=== PATIENT | male | born 1945 | race Caucasian/White ===

== ENCOUNTER → 2020-11-26 10:33 | Outpatient (CLI) | payer MEDICARE, SELFPAY ==
--- NOTE | 2020-11-26 10:36 | ART_ITS ---
Reason For Study: atherosclerosis Procedure A bilateral lower extremity continuous wave Doppler with analog waveform analysis and ankle brachial indexes. Left Segmental Pressures Left brachial= 137mmHg. Left posterior tibial artery = 91mmHg. Left dorsalis pedis artery = 94mmHg. The left dorsalis pedis waveforms are monophasic. The left posterior tibial artery waveforms are monophasic. Right Segmental Pressures Right brachial= 127mmHg. Right posterior tibial artery = 88mmHg. Right dorsalis pedis artery = 95mmHg. The right dorsalis pedis waveforms are monophasic. The right posterior tibial artery waveforms are monophasic. Indices The right ankle brachial index by the posterior tibial artery is .64. The right ankle brachial index by the dorsalis pedis is .69. The left ankle brachial index by the posterior tibial artery is .66. The left ankle brachial index by the dorsalis pedis is .69. VL/Ankle Brachial Index Interpretation Summary Bilateral moderate occlusive disease at rest with an DAVID 0.69 bilaterally. Obion phasic flow noted. Ordering Physician: Abdelrahman Alcaraz Performed By: MASSIEL ELLIS T
--- NOTE | 2020-11-26 11:02 | CT_ITS ---
STUDY: CTA OF THE ABDOMINAL AORTA AND BILATERAL LOWER EXTREMITIES REASON FOR EXAM: Male, 75 years old. Bilateral hip pain and lower extremity pain. History of smoker. RADIATION DOSAGE (If Supplied By Facility): CTDIvol = ( 9.28 ) mGy, DLP = ( 1315.47 ) mGycm TECHNIQUE: Axial CT angiography multi-detector data acquisition was obtained from the dome of the liver to the level of the ankles following intravenous administration of IV 100mL [id number]. Axial images and MIP images were reconstructed from the axial data set. Post-processing of the angiographic images was performed, with multiplanar reformation and 3D reconstruction. Individualized dose optimization techniques were used for this CT. TECHNICAL QUALITY: Good COMPARISON: None. Descriptors of Narrowing: None (0%) Mild (< 50%) Moderate (50-70%) Severe (70-90%) Subtotal/Total Occlusion (90-100%) Non-Evaluable (technically non-diagnostic FINDINGS: Coronary artery calcification. Diffuse fatty infiltration of the liver. Abdominal aorta: Diffuse atherosclerotic plaque formation. There is evidence of aneurysmal dilatation of the distal abdominal aorta with a transverse dimension of 42.7 mm. There is evidence of mural thrombus. Celiac and superior mesenteric arteries: Atherosclerotic plaque formation at the origin of the celiac artery and superior mesenteric artery with mild narrowing. Inferior mesenteric artery: Not visualized. Right renal artery(arteries): Mildly stenotic atherosclerotic plaque at the origin of the right renal artery. Left renal artery(arteries): Nonstenotic calcific plaque at the origin of the left renal artery. Right common iliac artery: Atherosclerotic plaque formation. 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 The aneurysm measures 2.4 cm. Right external iliac artery: Nonobstructive calcific plaques. Right internal iliac artery: No demonstrated narrowing. Left common iliac artery: Aneurysmal dilatation of the left common iliac artery with a transverse dimension of 2.1 cm. There is evidence of mural thrombus. Left external iliac artery: Nonobstructive calcific plaques. Left internal iliac artery: No demonstrated narrowing. RIGHT LOWER EXTREMITY Right common femoral artery: No demonstrated narrowing. Right profundus femoris: No demonstrated narrowing. Right superficial femoral: Multiple stenotic calcific plaques throughout the course of the superficial femoral artery. Right popliteal artery: Nonstenotic calcific plaques at the level of the popliteal artery. Right tibioperoneal trunk: No demonstrated narrowing. Right anterior tibial artery: No demonstrated narrowing. Right posterior tibial artery: The artery is patent although it is of narrow caliber. Right peroneal artery: No demonstrated narrowing. LEFT LOWER EXTREMITY Left common femoral artery: No demonstrated narrowing. Left profundus femoris: No demonstrated narrowing. Left superficial femoral: Multiple stenotic calcific plaques throughout its course. Left popliteal artery: Nonobstructive calcific plaques. Left tibioperoneal trunk: No demonstrated narrowing. Left anterior tibial artery: Multiple stenotic plaque seen throughout its course. Left posterior tibial artery: No demonstrated narrowing. Left peroneal artery: No demonstrated narrowing. 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 Narrow caliber of the right posterior tibial artery. Multiple stenotic plaque seen throughout the course of the left anterior tibial artery. 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 Mural thrombus is seen within. Electronically Signed: Richard Orellana MD at 12:52 EDT , Service support ,
[2020-11-26 14:05] LABS: CREATININE FINGERSTICK 1.1 mg/dL (0.70-1.30); EGFR FINGERSTICK > 60.0000 mL/min (>60)
== END ==
PROVIDERS: PCP Physician Assistant; Referring Provider Surgery Vascular Surgery; Visit Provider Surgery Vascular Surgery
DX: I70.213 Atherosclerosis of native arteries of extremities with intermittent claudication, bilateral legs (principal); I77.1 Stricture of artery; E78.00 Pure hypercholesterolemia, unspecified; I10 Essential (primary) hypertension; I71.4 Abdominal aortic aneurysm, without rupture; F17.200 Nicotine dependence, unspecified, uncomplicated; E11.9 Type 2 diabetes mellitus without complications
CPT/HCPCS: 75635; 93922; Q9967

== ENCOUNTER → 2025-05-22 | Outpatient (CLI) | payer MEDICARE, SELFPAY ==
--- OUTSIDE RECORDS SUMMARY | 2025-05-22 19:11 | XMS RPT_ITS | CCD ---
Author Organization [facility] Care Team Providers Care Automobile Inspector Name Role Phone ENA LOERA Primary Care Physician ENA LOERA Primary Care Unavailable GRETA ALCARAZ MD Attending Unavailable MICHELLE DAILEY ENA Primary Care Unavailable PADDY MENDOZA Attending U GRETA Sierra MD Consulting Unavailable GRETA ALCARAZ MD Admitting Unavailable MICHELLE DAILEY ENA Primary Care Unavailable GRETA ALCARAZ MD Attending Unavailable SORIANO PA, ENA Primary Care Unavailable GRETA ALCARAZ MD Attending Unavailable SORIANO PA, ENA Primary Care Unavailable MARY MARINO Attending Unavailable Soriano PA-C, Ena J Unavailable Soriano PA-C, Ena J Unavailable General Surgery Provider Unavailable Unavail able Orthopedic Provider Unavailable Unavailable Urologist Provider Unavailable Unavailable Vascular Surgeon Unavailable Unavailable Rebecca Maynard RN Unavailable Unavailva Rivas RN, Micaela Unavailable [phone] Mutnick MACKENZIEN, Nithya K Unavailable UnaRafia Lincoln Unavailable Unavailable Sonali TAN, Adilia Unavailable Unavailab Perlita Campbell LPN Unavailable Unavailabl e Unavailable Unavailable Cesario CELIS, Dr. Micah Sanchez Unavailable Rin Garcia LPN Unavailable Unavailabl e EDWARD RIVAS Admitting Unavailable EDWARD RIVAS Attending Unavailable EDWARD RIVAS Primary Care Unavailable ENA SORIANO Consulting Unavailable PROVIDER, UNKNOWN Consulting Unavailable SORIANO, ENA J Admitting Unavailable SORIANO ENA J Attending Unavailable SORIANO, ENA J Primary Care Unavailable SORIANO, ENA J Consulting Unavailable PROVIDER, UNKNOWN Consulting Unavailable GARCÍA, JO Admitting Unavailable GARCÍA, JO Attending Unavailable GARCÍA, JO Primary Care Unavailable ENA SORIANO Consulting Unavailable PROVIDER, UNKNOWN Consulting Unavailable ROSELIA PACHECO Admitting Unavailable ROSELIA PACHECO Attending Unavailable ROSELIA PACHECO Primary Care Unavailable ENA SORIANO Consulting Unavailable ENA SORIANO Referring Unavailable PROVIDER, UNKNOWN Consulting Unavailable REFERRING, PHY WO ID Attending Unavailable ENA LOERA Primary Care Unavailable JO MARIANO MD Attending Unavailable ENA LOERA Primary Care Unavailable Medications Current Medications Medication Drug Class(es) Dates Sig (Normalized) Sig (Original) aspirin 81 mg delayed release oral tablet (20 sources) Platelet Aggregation Inhibitor, Nonsteroidal Anti-inflammatory Drug Start: 02-20-2021 aspirin 81 mg oral delayed release tablet Dose : 81 mg = 1 tab(s), Oral, Daily, 0 Refill(s) Start Date: 02/20/21 Status: Ordered Repeat number: 1 Aspirin EC Statu s: Inactive atorvastatin 80 mg oral tablet (20 sources) HMG-CoA Reductase Inhibitor Start: 09-04-2024 take 1 tablet by mouth once daily atorvastatin 80 mg oral tablet 1 tab(s), Oral, qDay, # 90 tab(s), 3 Refill(s), Pharmacy: [id number], 170, cm, 02/16/24 13:18:00 EDT, Height, kg, 02/16/24 13:18:00 EDT, Dosing Weight Start Date: 09/04/24 Status: Ordered Quantity: 90.0 Unit: tab(s) Repeat number: 4 Start: 08-27-2022 take 1 tablet by ila th once daily atorvastatin 80 mg oral tablet 1 tab(s), Oral, qDay, # 90 tab(s), 3 Refill(s), Pharmacy: [id number], 166, cm, 02/18/22 14:20:00 EDT, Height, kg, 02/18/22 14:20:00 EDT, Dosing Weight Start Date: 08/27/22 Status: Ordered Start: 04-25-2015 End: 04-06-2016 take 1 tablet by mouth at bedtime Atorvastatin Calcium 40 MG Oral Tablet ; 1 Tablet with evening meal or at bedtime for 0 days Quantity: 45 {Tablet} Refills: 5 Ordered: 06-Apr-2016 MARQUITA Soriano Start: 25-Apr-2015 End: 06-Apr-2016 Status: Inactive ezetimibe 10 mg oral tablet (5 sources) Dietary Cholesterol Absorption Inhibitor Start: 09-04-2024 Zetia 10 mg oral tablet Dose : 10 mg = 1 tab(s), Oral, qDay, # 90 tab(s), 3 Refill(s), Pharmacy: [id number], 170, cm, 02/16/24 13:18:00 EDT, Height, kg, 02/16/24 13:18:00 EDT, Dosing Weight Start Date: 09/04/24 Status: Ordered Quantity: 90.0 Unit: tab(s) Repeat number: 4 Start: 02-17-2023 Zetia 10 mg or al tablet Dose : 10 mg = 1 tab(s), Oral, qDay, # 90 tab(s), 2 Refill(s), Pharmacy: [facility], 165.1, cm, 02/17/23 13:21:00 EDT, Height, kg, 02/17/23 13:21:00 EDT, Dosing Weight Start Date: 02/17/23 Status: Ordered lisinopril 20 mg oral tablet (13 sources) Angiotensin Converting Enzyme Inhibitor Start: 09-04-2024 take 1 tablet by mouth once daily lisinopril 20 mg oral tablet 1 tab(s), Oral, qDay, # 90 tab(s), 3 Refill(s), Pharmacy: [id number], 170, cm, 02/16/24 13:18:00 EDT, Height, kg, 02/16/24 13:18:00 EDT, Dosing Weight Start Date: 09/04/24 Status: Ordered Quantity: 90.0 Unit: tab(s) Repeat number: 4 Start: 08-27-2022 take 1 tablet by ila th once daily lisinopril 20 mg oral tablet 1 tab(s), Oral, qDay, # 90 tab(s), 3 Refill(s), Pharmacy: [id number], 166, cm, 02/18/22 14:20:00 EDT, Height, kg, 02/18/22 14:20:00 EDT, Dosing Weight Start Date: 08/27/22 Status: Ordered Multivitamin Adult (8 sources) Multivitamin Dallin lt Multivitamin preparation (5 sources) Start: 02-20-2021 take 1 tablet by mouth once daily Multivitamin Dose = 1 tab(s), Oral, Daily, 0 Refill(s) Start Date: 02/20/21 Status: Ordered Repeat number: 1 Start: 02-20-2021 take 1 tablet by ila th once daily Multivitamin Dose = 1 tab(s), Oral, Daily, 0 Refill(s) Start Date: 02/20/21 Status: Ordered nitroglycerin 0.4 mg sublingual tablet (13 sources) Nitrate Vasodilator Start: 03-30-2016 Nitrostat 0.4 mg sublingual tablet Dose : 0.4 mg = 1 tab(s), Sublingual, q5min, PRN Chest pain, # 25 tab(s), 2 Refill(s) Start Date: 03/30/16 Status: Ordered Quantity: 25.0 Unit: tab(s) Repeat number: 3 Nitrostat ; prn Status: Inactive Completed/Discontinued Medications Medication Drug Class(es) Dates Sig (Normalized) Sig (Original) cilostazol 100 mg oral tablet (8 sources) Phosphodiesterase 3 Inhibitor Start: 03-21-2015 End: 04-06-2016 take 1 tablet by mouth twice daily Cilostazol 100 MG Oral Tablet ; 1 (one) Tablet BID for 0 days Quantity: 60 {Tablet} Refills: 5 Ordered: 06-Apr-2016 BRITNEY Lema Start: 21-Mar-2015 End: 06-Apr-2016 Status: Inactive lovastatin 20 mg oral tablet (8 sources) HMG-CoA Reductase Inhibitor take 1 tablet by mouth once daily Lovastatin 20 MG Oral Tablet ; 1 qd (20 MG) Status: Inactive methylPREDNISolone 4 mg oral tablet (8 sources) Corticosteroid Start: 02-24-2017 End: 09-08-2018 Medrol 4 MG Oral Tablet Therapy Pack ; 1 (one) Tab Ther Pack as directed for 0 days Quantity: 1 {Package} Refills: 0 Ordered: 08-Sep-2018 BRITNEY Carter Start: 24-Feb-2017 End: 08-Sep-2018 Status: Inactive Comments: review use of aspirin with this med with pt please Comment on above: review use of aspiri n with this med with pt please prasugrel 10 mg oral tablet (8 sources) P2Y12 Platelet Inhibitor take 1 tablet by mouth once daily Prasugrel HCl 10 MG Oral Tablet ; 1 daily (10 MG) Status: Inactive Problems Active Problems Problem Classification Problem Date Documented Da te Episodic/Chronic Acute myocardial infarction (5 sources) Myocardial infarction 08-03-2019 Chronic Aortic; peripheral; and visceral artery aneurysms (20 sources) Abdominal aortic aneurysm without rupture; Translations: [Abdominal aortic aneurysm, without rupture, unspecified] Chronic Conduction disorders (5 sources) Atrioventricular block 08-03-2019 Chronic Coronary atherosclerosis and other heart disease (20 sources) Coronary arteriosclerosis in [place] artery; Translations: [Coronary atherosclerosis] Onset: 6 08-03-2019 Chronic Comment on above: Percutaneous interve ntion on the 100% thrombosis in the body of the saphenous vein graft to the left circumflex. Thrombectomy. Thrombectomy. 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 Other gastrointestinal disorders (14 sources) Diarrhea; Translations: [Diarrhea, unspecified] 03-17-2024 Episodic Other screening for suspected conditions (not mental disorders or infectious disease) (20 sources) Raised prostate specific antigen; Translations: [Elevated prostate specific antigen [PSA]] 02-24-2017 Episodic Peripheral and visceral atherosclerosis (20 sources) Peripheral vascular disease; Translations: [Intermittent claudication] 08-03-2019 Chronic Residual codes; unclassified (5 sources) Tobacco user 06-03-2021 Episodic Rheumatoid arthritis and related disease (5 sources) Rheumatoid arthritis 08-03-2019 Chronic Spondylosis; intervertebral disc disorders; other back problems (16 sources) Backache; Translations: [Dorsalgia, unspecified] 02-25-2017 Episodic Substance-related disorders (20 sources) Tobacco user; Translations: [Nicotine dependence, unspecified, uncomplicated] 09-08-2018 Chronic Unclassified (2 sources) 1 1/2 PPD SMOKER SINCE 10 YEARS OLD Onset: 9 08-03-2008 Unclassified (2 sources) 1/30 CABGX4 THOMAS MECHE LSVG NO TPW RIGHT GROIN SHEATH Onset: 9 08-03-2008 Unclassified (2 sources) HX LOWER BACK SURGERY Onset: 9 08-03-2008 Unclassified (5 sources) Influenza vaccination declined Onset: 7 08-03-2019 Comment on above: verified 01/2017 Unclassified (2 sources) OSTEOARTHRITIS, ELEVATED LIPIDS Onset: 9 08-03-2008 Unclassified (5 sources) Vaccine refused by parent Onset: 7 08-03-2019 Comment on above: verified 01/2017 Unclassified (8 sources) [facility] Routine Follow up - The patient is here for follow-up of hyperlipidemia and coronary artery disease. The patient always takes the prescribed medications. No side effects noted. The patient has an active lifestyle but no regular program. The patient's out of office blood pressure checks occur rarely and dietary compliance is fairly good usually adhering to recommendations. The patient states that there is no recent angina or dyspnea, there are no vision changes or weakness, weight has increased (5 pounds) and they do not have headaches. 09-08-2018 Unclassified (8 sources) [ADDITIONAL REASON] Transition into care - The patient is transitioning into care from another physician (cardio). 09-08-2018 Unclassified (7 sources) Follow up for multiple chronic conditions - The patient is here for follow-up of hyperlipidemia, coronary artery disease and other condition(s) (AAA). The patient always takes the prescribed medications. No side effects noted. The patient has an active lifestyle but no regular exercise program. The patient's out of office blood pressure checks occur rarely and dietary compliance is fairly good usually adhering to recommendations. The patient states that breathing effort is stable, there is no recent angina or dyspnea, there are no vision changes or weakness, weight has decreased (weight is down 16 pounds since last OV) and they do not have headaches. Note for Multiple chronic conditions follow-up: Saw Dr. Robins in July - he was being noncompliant due to cost with meds so was started on lovastatin and lisinopril.Saw Dr. Alcaraz approx 1 month ago - no changes at that time per patient.Has not seen urologist. 10-05-2016 Unclassified (7 sources) [ADDITIONAL REASON] Transition into care - The patient is transitioning into care from another physician (07/2016 cardiology) and a summary of care was reviewed. 10-05-2016 Unclassified (6 sources) Follow up for multiple chronic conditions - The patient is here for follow-up of hyperlipidemia and other condition(s) (elevated PSA, AAA, hyperglycemia). The patient always takes the prescribed medications. No side effects noted. The patient has an active lifestyle but no regular exercise program. The patient's dietary compliance is fairly good usually adhering to recommendations. The patient states that breathing effort is stable, there is no recent angina or dyspnea, there are no vision changes or weakness, pain is generally stable (since he has been taking aleve for arthritis; says it helps more with low back and hip pain than the pletal) and they do not have headaches. Note for Multiple chronic conditions follow-up: 12/17 - alt, ast, lipid, psa. 09/16 - fecal and a1c. Weight is up 4 pounds since last OV. 03-21-2015 Unclassified (6 sources) [ADDITIONAL REASON] Transition into care - The patient is transitioning into care from another physician (01/2015 Urologist - Dr. Birmingham, Vascular Surgeon - Dr. Alcaraz.) and a summary of care was reviewed . Note for Transition into care: Elevated PSA is being monitored. 03-21-2015 Unclassified (8 sources) Follow Up for Multiple Chronic Conditions - The patient is here for follow-up of coronary artery disease and other condition(s) (AAA). The patient always takes the prescribed medications. No side effects noted. The patient engages in regular exercise program 3-5 times per week (walks daily). The patient states that there is no recent angina or dyspnea, weight has increased (Up 3 pounds.) and headaches are rarely noted. Note for Multiple chronic conditions follow-up: Plans to schedule eye exam with Dr. Virgen. Has been seeing Dr. Alcaraz. Intermittent claudication has improved on medication. 2014 Unclassified (8 sources) [ADDITIONAL REASON] MCR well adult - In general the patient feels well with no complaints. Over the past 2 weeks, the patient has not been feeling down, depressed, or hopeless. The patient denies having trouble with bathing, dressing/grooming, toileting, preparing meals and ambulating. The patient denies having trouble with grocery shopping, driving, use of telephone, preparing/taking medications and finances. The patient denies falling more than once in the past 12 months. 2014 Unclassified (2 sources) Transition into care - The patient is transitioning into care from another physician (01/2015 Urologist - Dr. Birmingham, Vascular Surgeon - Dr. Alcaraz.) and a summary of care was reviewed . Note for Transition into care: Elevated PSA is being monitored. 03-21-2015 Unclassified (2 sources) [ADDITIONAL REASON] Follow up for multiple chronic conditions - The patient is here for follow-up of hyperlipidemia and other condition(s) (elevated PSA, AAA, hyperglycemia). The patient always takes the prescribed medications. No side effects noted. The patient has an active lifestyle but no regular exercise program. The patient's dietary compliance is fairly good usually adhering to recommendations. The patient states that breathing effort is stable, there is no recent angina or dyspnea, there are no vision changes or weakness, pain is generally stable (since he has been taking aleve for arthritis; says it helps more with low back and hip pain than the pletal) and they do not have headaches. Note for Multiple chronic conditions follow-up: 12/17 - alt, ast, lipid, psa. 09/16 - fecal and a1c. Weight is up 4 pounds since last OV. 03-21-2015 Unclassified (1 source) Transition into care - The patient is transitioning into care from another physician (07/2016 cardiology) and a summary of care was reviewed. 10-05-2016 Unclassified (1 source) [ADDITIONAL REASON] Follow up for multiple chronic conditions - The patient is here for follow-up of hyperlipidemia, coronary artery disease and other condition(s) (AAA). The patient always takes the prescribed medications. No side effects noted. The patient has an active lifestyle but no regular exercise program. The patient's out of office blood pressure checks occur rarely and dietary compliance is fairly good usually adhering to recommendations. The patient states that breathing effort is stable, there is no recent angina or dyspnea, there are no vision changes or weakness, weight has decreased (weight is down 16 pounds since last OV) and they do not have headaches. Note for Multiple chronic conditions follow-up: Saw Dr. Robins in July - he was being noncompliant due to cost with meds so was started on lovastatin and lisinopril.Saw Dr. Alcaraz approx 1 month ago - no changes at that time per patient.Has not seen urologist. 10-05-2016 Past or Other Problems Problem Classification Problem Date Documented Date Episodic/Chronic Residual codes; unclassified (5 sources) Smokes tobacco daily Onset: 03-28-2016 03-28-2016 Episodic Unclassified (8 sources) Bloody stools - The onset of the bloody stools has been acute , and they have been occurring in an intermittent pattern for 1 week. The course has been decreasing. The bloody stools are characterized as blood streaking of toilet paper and bloody toilet bowl water. The symptoms have been associated with straining on bowel movements but have not been associated with abdominal pain, family history of colon cancer, hard stools, nausea, vomiting, weight loss or diarrhea. Note for Bloody stools: Initial bleeding happened after he was straining during a BM. It was less and less with the following BMs. Has been using preoperation H as he does have an external hemorrhoid. 12-09-2018 Unclassified (8 sources) Back pain - The onset of the back pain has been gradual and has been occurring in a persistent pattern for 2 weeks. The course has been constant. The pain is characterized as a dull ache. The pain is located in the lower back (right side but now moving more central) and does not radiate. There are no precipitating factors. The symptoms have no relieving factors. There has been no associated dysuria or fever. Note for Back pain: Has history of back issues and also has had back surgery. He did wonder if it was his kidneys due to urine being darker and had a smell; used cranberry juice.Worse with lying down or changing positions. 02-24-2017 Unclassified (7 sources) Follow up consultation - The patient is here to follow-up after hospitalization ([facility] to [facility] 03/[facility]/2016 and was transferred to [place] - discharged on 03/30/16 for STEMI (drug eluting stent to Left Circumflex). ECHO, heart cath, labs, and EKG done.). Current symptoms include none (states he feels good other than a little sore; no chest pain or SOB). Note for Consultation follow-up: Has a f/u appt with cardiology May 22. Hasn't been notified of cardiac rehab yet. No B-rosemary due to heart blocking during hospitalization. No ACEI due to hypotension. 04-06-2016 Unclassified (7 sources) [ADDITIONAL REASON] Transition into care - The patient is transitioning into care from a hospital and a summary of care was reviewed . 04-06-2016 Unclassified (8 sources) Back pain - The onset of the back pain has been gradual and has been occurring in a persistent pattern for months (Has had 2-3 back surgeries (last was around 15-20 years ago). Saw previous PCP (Dr. Dietz) for this in November and had lumbosacral x-ray and abdominal US done (due to aortic aneurysm noted on x-ray). Has continued with the pain since then but it has really flared up.). The course has been increasing. The pain is characterized as a dull ache. The pain radiates to the lateral aspect of right leg and lateral aspect of left leg. There are no precipitating factors. The symptoms are aggravated by exertion (Can only walk 200-300 feet and has to stop because of the pain. Resolves with rest. Only having pain in his hips and legs now. No swelling of the legs. No back pain. ) and prolonged standing and are relieved by rest. There has been no associated dysuria. Note for Back pain: Toes/feet always feel cold. No significant numbness or tingling. History of cardiac bypass about 5 years ago - was on medications following this but stopped all of them. 03-18-2014 Unclassified (7 sources) Diarrhea - The onset of the diarrhea has been acute and has been occurring in a persistent pattern for 2 weeks. The course has been constant. The stools are watery. The frequency of bowel movements has been 2 per day. The volume of the stools is normal. There has been no associated fever or nausea. Note for Diarrhea: No recent travel.Had been eating a lot of chocolate but there was no change with that.No blood in the stool.Stool is black. No weakness.No abd pain.No fever or night sweats.Tried an OTC medication - unsure of name (not pepto bismol) - took them a few times without improvement. 03-17-2024 Unclassified (1 source) Transition into care - The patient is transitioning into care from a hospital and a summary of care was reviewed . 04-06-2016 Unclassified (1 source) [ADDITIONAL REASON] Follow up consultation - The patient is here to follow-up after hospitalization (Went to [facility] for [facility] pain on 03/28/2016 and was transferred to [place] - discharged on 03/30/16 for STEMI (drug eluting stent to Left Circumflex). ECHO, heart cath, labs, and EKG done.). Current symptoms include none (states he feels good other than a little sore; no chest pain or SOB). Note for Consultation follow-up: Has a f/u appt with cardiology May 22. Hasn't been notified of cardiac rehab yet. No B-rosemary due to heart blocking during hospitalization. No ACEI due to hypotension. 04-06-2016 Results Test Name Value Interpretation Reference Range Facility CBC (INCLUDES DIFF/PLT)on Basophils (Bld) [#/Vol] 0.059 10*3/uL Normal 0-200 [facility] Comment on above: Performed By: #### 3 8930, 7600, [id number], 6399 #### [facility] [address], [address] [place] [address] Speech Professor: Ashish Moscoso MD Basophils/100 WBC (Bld) 1.1 % Normal [facility] Comment on above: Performed By: #### 3 8930, 7600, 65545, 6399 #### [facility] [place] [address] Speech Professor: Ashish Moscoso MD Eosinophils (Bld) [#/Vol] 0.211 10*3/uL Normal 15-500 [facility] Comment on above: Performed By: #### 3 8930, 7600, 07573, 6399 #### [facility] [place] [address] Speech Professor: Ashish Moscoso MD Eosinophils/100 WBC (Bld) 3.9 % Normal [facility] Comment on above: Performed By: #### 3 8930, 7600, 17390, 6399 #### [facility] [place] [address] Speech Professor: Ashish Moscoso MD Erythrocyte distribution width (RBC) [Ratio] 13.7 % Normal 11.0-15.0 [facility] Comment on above: Performed By: #### 3 8930, 7600, 80318, 6399 #### [facility] [place] [address] Speech Professor: Ashish Moscoso MD Hematocrit (Bld) [Volume fraction] 42.6 % Normal 38.5-50.0 [facility] Comment on above: Performed By: #### 3 8930, 7600, 54957, 6399 #### [facility] [place] [address] Speech Professor: Ashish Moscoso MD Hemoglobin (Bld) [Mass/Vol] 14.0 g/dL Normal 13.2-17.1 [facility] Comment on above: Performed By: #### 3 8930, 7600, 64355, 6399 #### [facility] [place] [address] Speech Professor: Ashish Moscoso MD Lymphocytes (Bld) [#/Vol] 1.598 10*3/uL Normal 850-3900 [facility] Comment on above: Performed By: #### 3 8930, 7600, 73130, 6399 #### [facility] [place] [address] Speech Professor: Ashish Moscoso MD Lymphocytes/100 WBC (Bld) 29.6 % Normal [facility] Comment on above: Performed By: #### 3 8930, 7600, 36495, 6399 #### [facility] [place] [address] Speech Professor: Ashish Moscoso MD MCH (RBC) [Entitic mass] 31.1 pg Normal 27.0-33.0 [facility] Comment on above: Performed By: #### 3 8930, 7600, 84815, 6399 #### [facility] [place] [address] Speech Professor: Ashish Moscoso MD MCHC (RBC) [Mass/Vol] 32.9 g/dL Normal 32.0-36.0 [facility] Comment on above: Result Comment: For adults, a slight decrease in the calculated MCHC value (in the range of 30 to 32 g/dL) is most likely not clinically significant; however, it should be interpreted with caution in correlation with other red cell parameters and the patient's clinical condition. Performed By: #### 3 8930, 7600, 54591, 6399 #### [facility] [place] [address] Speech Professor: Ashish Moscoso MD MCV (RBC) [Entitic vol] 94.7 fL Normal 80.0-100.0 [facility] Diagnostics Comment on above: Performed By: #### 3 8930, 7600, 42351, 6399 #### [facility] [place] [address] Speech Professor: Ashish Moscsoo MD Monocytes (Bld) [#/Vol] 0.605 10*3/uL Normal 200-950 [facility] Comment on above: Performed By: #### 3 8930, 7600, 30070, 6399 #### [facility] [place] [address] Speech Professor: Ashish Moscoso MD Monocytes/100 WBC (Bld) 11.2 % Normal [facility] Comment on above: Performed By: #### 3 8930, 7600, 93700, 6399 #### [facility] [place] [address] Speech Professor: Ashish Moscoso MD Neutrophils (Bld) [#/Vol] 2.927 10*3/uL Normal 1043-4966 [facility] Comment on above: Performed By: #### 3 8930, 7600, 20180, 6399 #### [facility] [place] [address] Speech Professor: Ashish Moscoso MD Neutrophils/100 WBC (Bld) 54.2 % Normal [facility] Comment on above: Performed By: #### 3 8930, 7600, 40375, 6399 #### [facility] [place] [address] Speech Professor: Ashish Moscoso MD Platelet mean volume (Bld) [Entitic vol] 10.0 fL Normal 7.5-12.5 [facility] Comment on above: Performed By: #### 3 8930, 7600, 13872, 6399 #### [facility] [place] [address] Speech Professor: Ashish Moscoso MD Platelets (Bld) [#/Vol] 207 10*3/uL Normal 140-400 [facility] Comment on above: Performed By: #### 3 8930, 7600, 87501, 6399 #### [facility] of [address], [address] [place] [address] Speech Professor: Ashish Moscoso MD RBC (Bld) [#/Vol] 4.50 10*6/uL Normal 4.20-5.80 [facility] Comment on above: Performed By: #### 3 8930, 7600, 48008, 6399 #### [facility] [place] [address] Speech Professor: Ashish Moscoso MD WBC (Bld) [#/Vol] 5.4 10*3/uL Normal 3.8-10.8 [facility] Comment on above: Performed By: #### 3 8930, 7600, 99024, 6399 #### [facility] [place] [address] Speech Professor: Ashish Moscoso MD COMPREHENSIVE METABOLIC PANE [facility] 04-18-2025 Albumin [Mass/Vol] 3.9 g/dL Normal 3.6-5.1 [facility] Comment on above: Performed By: #### 3 8930, 7600, 36799, 6399 #### [facility] of [address], [address] [place] [address] Speech Professor: Ashish Moscoso MD Albumin/Globulin [Mass ratio] 1.4 {ratio} Normal 1.0-2.5 [facility] Comment on above: Performed By: #### 3 8930, 7600, 67426, 6399 #### [facility] of [address], [address] [place] [address] Speech Professor: Ashish Moscoso MD ALP [Catalytic activity/Vol] 51 U/L Normal 35-144 [facility] Comment on above: Performed By: #### 3 8930, 7600, 71222, 6399 #### [facility] of [address], [address] [place] [address] Speech Professor: Ashish Moscoso MD ALT [Catalytic activity/Vol] 19 U/L Normal 9-46 [facility] Comment on above: Performed By: #### 3 8930, 7600, 11947, 6399 #### [facility] [address], [address] [place] [address] Speech Professor: Ashish Moscoso MD AST [Catalytic activity/Vol] 17 U/L Normal 10-35 [facility] Comment on above: Performed By: #### 3 8930, 7600, 96268, 6399 #### [facility] [address], [address] [place] [address] Speech Professor: Ashish Moscoso MD Bilirubin [Mass/Vol] 0.5 mg/dL Normal 0.2-1.2 [facility] Comment on above: Performed By: #### 3 8930, 7600, 45488, 6399 #### [facility] [address], [address] [place] [address] Speech Professor: Ashish Moscoso MD BUN/CREATININE RATIO SEE NOTE: Normal 6-22 [facility] Comment on above: Result Comment: Not Reported: BUN and Creatinine are within reference range. Performed By: #### 3 8930, 7600, 45349, 6399 #### [facility] [address], [address] [place] [address] Speech Professor: Ashish Moscoso MD Calcium [Mass/Vol] 9.2 mg/dL Normal 8.6-10.3 [facility] Comment on above: Performed By: #### 3 8930, 7600, 45131, 6399 #### [facility] [place] [address] Speech Professor: Ashish Moscoso MD Chloride [Moles/Vol] 104 mmol/L Normal 98-110 [facility] Comment on above: Performed By: #### 3 8930, 7600, 08360, 6399 #### [facility] [place] [address] Speech Professor: Ashish Moscoso MD CO2 [Moles/Vol] 24 mmol/L Normal 20-32 [facility] Comment on above: Performed By: #### 3 8930, 7600, 57233, 6399 #### [facility] [place] [address] Speech Professor: Ashish Moscoso MD Creatinine [Mass/Vol] 1.04 mg/dL Normal 0.70-1.22 [facility] Comment on above: Performed By: #### 3 8930, 7600, 27964, 6399 #### [facility] [place] [address] Speech Professor: Ashish Moscoso MD GFR/1.73 sq M.predicted among non-blacks MDRD (S/P/Bld) [Vol rate/Area] 72 mL/min/{1.73_m2} Normal > OR = 60 [facility] Comment on above: Performed By: #### 3 8930, 7600, 30864, 6399 #### [facility] [place] [address] Speech Professor: Ashish Moscoso MD Globulin (S) [Mass/Vol] 2.7 g/dL Normal 1.9-3.7 [facility] Comment on above: Performed By: #### 3 8930, 7600, 78378, 6399 #### [facility] [address], [address] [place] [address] Speech Professor: Ashish Moscoso MD Glucose [Mass/Vol] 99 mg/dL Normal 65-99 [facility] Comment on above: Result Comment: Fasting reference interval Performed By: #### 3 8930, 7600, 10550, 6399 #### [facility] [address], [address] [place] [address] Speech Professor: Ashish Moscoso MD Potassium [Moles/Vol] 4.6 mmol/L Normal 3.5-5.3 [facility] Comment on above: Performed By: #### 3 8930, 7600, 25439, 6399 #### [facility] [place] [address] Speech Professor: Ashish Moscoso MD Protein [Mass/Vol] 6.6 g/dL Normal 6.1-8.1 [facility] Comment on above: Performed By: #### 3 8930, 7600, 66121, 6399 #### [facility] [place] [address] Speech Professor: Ashish Moscoso MD Sodium [Moles/Vol] 138 mmol/L Normal 135-146 [facility] Comment on above: Performed By: #### 3 8930, 7600, 19642, 6399 #### [facility] [place] [address] Speech Professor: Ashish Moscoso MD Urea nitrogen [Mass/Vol] 20 mg/dL Normal 7-25 [facility] Comment on above: Performed By: #### 3 8930, 7600, 99564, 6399 #### [facility] [place] [address] Speech Professor: Ashish Moscoso MD LIPID PANEL, [facility] 10- Cholesterol [Mass/Vol] 117 mg/dL Normal <200 [facility] Comment on above: Performed By: #### 3 8930, 7600, 23436, 6399 #### [facility] of [address], [address] [place] [address] Speech Professor: Ashish Moscoso MD Cholesterol in HDL [Mass/Vol] 39 mg/dL Low > OR = 40 [facility] Comment on above: Performed By: #### 3 8930, 7600, 88119, 6399 #### [facility] [address], [address] [place] [address] Speech Professor: Ashish Moscoso MD Cholesterol in LDL [Mass/Vol] 62 mg/dL Normal [facility] Comment on above: Result Comment: Refe rence range: <100 Desirable range <100 mg/dL for primary prevention; <70 mg/dL for patients with CHD or diabetic patients with > or = 2 CHD risk factors. LDL-C is now calculated using the Jordy calculation, which is a validated novel method providing better accuracy than the Friedewald equation in the estimation of LDL-C. Dustin SS et al. KALI. 2013;310(19): 3289-9328 (http://education.GameGenetics.Perminova/faq/OQO327) Performed By: #### 3 8930, 7600, 12723, 6399 #### [facility] [place] [address] Speech Professor: Ashish Moscoso MD Cholesterol.total/Ch olesterol in HDL [Mass ratio] 3.0 {ratio} Normal <5.0 [facility] Comment on above: Performed By: #### 3 8930, 7600, 15642, 6399 #### [facility] [address], [address] [place] [address] Speech Professor: Ashish Moscoso MD NON HDL CHOLESTEROL 78 mg/dL (calc) Normal <130 [facility] Comment on above: Result Comment: For patients with diabetes plus 1 major ASCVD risk factor, treating to a non-HDL-C goal of <100 mg/dL (LDL-C of <70 mg/dL) is considered a therapeutic option. Performed By: #### 3 8930, 7600, 81814, 6399 #### [facility] [address], [address] [place] [address] Speech Professor: Ashish Moscoso MD Triglyceride [Mass/Vol] 76 mg/dL Normal <150 [facility] Comment on above: Performed By: #### 3 8930, 7600, 05517, 6399 #### [facility] [address], [address] [place] [address] Speech Professor: Ashish Moscoso MD PSA, TOTALon 04-18-2025 PSA, TOTAL 10.82 ng/mL High < OR = 4.00 [facility] Comment on above: Result Comment: The total PSA value from this assay system is standardized against the WHO standard. The test result will be approximately 20% lower when compared to the equimolar-standardized total PSA (Kash Bob). Comparison of serial PSA results should be interpreted with this fact in mind. This test was performed using the Siemens chemiluminescent method. Values obtained from different assay methods cannot be used interchangeably. PSA levels, regardless of value, should not be interpreted as absolute evidence of the presence or absence of disease. Performed By: #### 3 8930, 7600, 28485, 6399 #### [facility] [address], [address] [place] [address] Speech Professor: Ashish Moscoso MD SPECIMEN INTEGRITY COMPROMIS EDon 04-18-2025 SPECIMEN INTEGRITY COMPROMISED Normal [facility] Comment on above: Result Comment: Whole blood, unspun or partially spun gel barrier tube was received more than 6 hours since collection. A false elevation of K, Phos and LD as well as a false decrease in glucose may occur due to prolonged contact with red cells. Performed By: #### 3 8930, 7600, 21215, 6399 #### [facility] [address], [address] [place] [address] Speech Professor: Ashish Moscoso MD LABORATORYOrdered By: Loreto Taylor on 09-05-2024 Cholesterol [Mass/Vol] 147 mg/dL Normal 0 - 200 mg/dL AO ADM SS Comment on above: Interpretive Data: C holesterol Reference Interval: Less than 200 Desirable 200-239 Borderline high risk 240 and above High risk Cholesterol in HDL [Mass/Vol] 53 mg/dL Normal 40 - 60 mg/dL AO ADM SS Cholesterol in LDL [Mass/Vol] 76 mg/dL Normal 0 - 130 mg/dL AO ADM SS Triglyceride [Mass/Vol] 89 mg/dL Normal 0 - 150 mg/dL AO ADM SS Comment on above: Interpretive Data: T riglyceride Reference Interval: Less than 150 Normal 150-199 Borderline high risk 200-499 High risk 500 or higher Very high risk LIPIDon 09-05-2024 Cholesterol [Mass/Vol] 147 mg/dL Normal 0-200 [facility] Comment on above: Result Comment: Chol esterol Reference Interval: Less than 200 Desirable 200-239 Borderline high risk 240 and above High risk Performed By: #### L IPID #### [address] [address] Cholesterol in HDL [Mass/Vol] 53 mg/dL Normal 40-60 [facility] Comment on above: Performed By: #### L IPID #### [address] [address] Cholesterol in LDL [Mass/Vol] 76 mg/dL Normal 0-130 [facility] Comment on above: Performed By: #### L IPID #### [address] [address] Triglyceride [Mass/Vol] 89 mg/dL Normal 0-150 [facility] Comment on above: Result Comment: Trig lyceride Reference Interval: Less than 150 Normal 150-199 Borderline high risk 200-499 High risk 500 or higher Very high risk Performed By: #### L IPID #### [address] [address] Final Surgical Pathology Rep [facility] 05-19-2024 Final Surgical Pathology Report . Pathology Reports Accession: Collected Date/Time: Received Date/Time: Pathologist: [id number] 05/17/2024 10:35 EST 05/18/2024 09:08 SEVERO JAVIER MD Final Surgical Pathology Report DIAGNOSIS: COLON, POLYP AT 5 CM: - HYPERPLASTIC POLYP COMMENT: [facility] [id number] CLINICAL INFORMATION: OTHER SPECIFIED SYMPTOMS AND SIGNS INVOLVING THE DIGESTIVE SYSTEM AND ABDOMEN; DIARRHEA, UNSPECIFIED SPECIMEN: A POLYP @ 5 CM GROSS DESCRIPTION: All parts labelled with patient name and [id number] Received in formalin labeled polyps at 5 cm are 4 sellers-pink sellers-brown tissue fragments measuring 0.3 x 0.2 to 0.5 x 0.3 cm greatest dimension. TS-1 Lizbet Thomas, Grossing Clamper/ Dr. Severo Mccain, Pathologist Performed by Lizbet Thomas MICROSCOPIC DESCRIPTION: The microscopic examination is performed, except in the case of Gross Only. Electronically Signed by Pathology Report verified by [facility] SEVERO MCCAIN Sign out Date: 05/19/2024 10:25 Performing Lab: [facility], [address] [place] [address] Pathology Dept Disclaimer If ancillary studies were utilized, the following Laboratory Developed Test (LDT) disclaimer will apply: Under CLIA requirements, [facility] is qualified to perform high complexity testing. For all ancillary stains, positive and negative controls stain appropriately. Performance characteristics of immunohistochemical and chromogenic in-situ hybridization tests have been determined by [facility]. These tests are used for clinical purposes, They should not be regarded as investigational or for research. Normal [facility] OPERATIVE PROCEDURESon 05-18 OPERATIVE PROCEDURES [facility] OPERATIVE REPORT NAME ACCOUNT SEX AGE ADMIT DISCHARGE PT MED. RECORD# NUMBER DATE DATE REGGIE BOWEN [id number] M 78 05/17/24 2 INDERJIT Bianchi [id number] ROOM: [facility] DATE OF : 1945 DICTATING PHYSICIAN: Edward Rivas DATE OF SURGERY: May 17, 2024 SURGEON: Edward Rivas MD DISTRIBUTION CENTER ADMINISTRATOR: ANESTHESIOLOGIST: Diogo Paulino CRNA ANESTHETIC: PREOPERATIVE DIAGNOSIS: POSTOPERATIVE DIAGNOSIS: Screening colonoscopy, colonic polyps, and hemorrhoids. OPERATION PERFORMED: Screening colonoscopy with biopsy and polypectomy. COMPLICATIONS: ESTIMATED BLOOD LOSS: Less than 3 mL. SPECIMEN: Polyps at 5 cm, all sent to Pathology. DISPOSITION: Stable, to recovery. INDICATIONS: Inderjit Bowen is an 78-year-old gentleman who has a prior history of polyps. DESCRIPTION OF OPERATION: After informed consent and intravenous fluids, he was brought to endoscopy for repeat evaluation endoscopically. He had given informed consent, and time-out verification was done. He was examined in the left lateral decubitus position with adequate padding at pressure points. He was given sedation per Anesthesia with monitoring throughout. Digital examination showed small external hemorrhoidal tags, normal tone, small internal tags, and a markedly enlarged prostate (the patient will need to follow up with his primary care and possibly Urology for this enlarged prostate). The Olympus CF-OW397P flexible endoscope was introduced Page 1 of 2 INDERJIT BOWEN Operative Report INDERJIT BOWEN : 1945 through the anal verge and carefully advanced, protecting the surrounding mucosa. The scope was advanced through the rectal vault and then through the sigmoid colon, which was rather tortuous. The scope was advanced through the descending colon, beyond the splenic flexure, transverse colon, hepatic flexure, and ascending colon toward the ileocecal junction. The landmarks were noted and documented. The scope was carefully withdrawn with circumferential visualization. Irrigation and suctioning improved the view. The prep was fair, but irrigation and suctioning helped make the colonic wall more visible. The scope was withdrawn through the ascending, transverse, descending and sigmoid colon with irrigation and suctioning and circular rotation in a rrzw-azg-ladgo movement as needed. In the rectal vault, the scope was retroflexed, rotated and then straightened out. At about 5 cm, there were 3 small, sessile, pinkish, polypoid structures which were sessile in nature. These were approximately 0.3 cm in width. These were removed with the cold grasp forceps and sent to Pathology, and there was good hemostasis. The scope was then withdrawn with irrigation and suctioning and decompression. There were some internal and external hemorrhoids, but no tear or fissure is seen. The patient tolerated the procedure well and was sent to the recovery room in stable condition. The case will be discussed with the patient when he is more awake. Follow-up for pathology will be in my office, and this will provide guidance for further plans. The patient was stable at the close of the procedure. Dictated By: Edward Rivas MD 05/17/24 10:47 JOB #: [id number] Transcribed By: michelle 05/17/24 11:34 Electronically signed by: E-Sign Dr. Edward Rivas MD 05/18/24 15:53 Page 2 of 2 INDERJIT BOWEN Operative Report Normal [facility] OVA & PARASITE EXAM [CCL]on 03-27-2024 OVA AND PARASITE EXAM See Below Normal [facility] Comment on above: Result Comment: OVA AND PARASITE EXAM No Parasites Seen This test can not identify the presence of Cryptosporidium, Cyclospora or Cystoisospora (order CRYSPO); Microsporidia (order MICSPO) or consider ordering STGIPI (molecular test to detect common infectious causes of diarrhea). A single negative test result does not rule out a parasitic infection. Due to intermittent shedding of parasites, it is recommended that three specimens collected over a 7 day period are submitted to improve detection sensitivity. SOURCE: Stool [facility] [address] [place] [address] Jose Almazan III, M.D. [id number] Performed By: #### 2 27697 #### [place] [address] CRYPTOSPORIDIUM & GIARDIA AG EIA [CCL]on 03-26-2024 CRYPTOSPORIDIUM & GIARDIA AG EIA [CCL] Normal [facility] Comment on above: Result Comment: _CRY PTOSPORIDIUM & GIARDIA AG BY EIA [CCL]_ SEE SEPARATE REPORT Performed By: #### 2 06900 #### [place] [address] CBC + DIFFon 03-21-2024 Baso # 0.02 x10EE3/UL Normal 0.00 - 0.10 [facility] Comment on above: Performed By: #### 2 11900 #### [place] [address] Basophils/100 WBC (Bld) 0.3 % Normal 0.0 - 2.0 % [facility] Comment on above: Performed By: #### 2 98044 #### [place] [address] CBC + DIFF Normal [facility] Comment on above: Result Comment: CBC- COMPLETE BLOOD COUNT Performed By: #### 2 32044 #### [place] [address] EO # 0.16 x10EE3/UL Normal 0.00 - 0.50 [facility] Comment on above: Performed By: #### 2 20881 #### [place] [address] Eosinophils/100 WBC (Bld) 2.8 % Normal 0.0 - 7.0 % [facility]. Comment on above: Performed By: #### 2 60173 #### [place] [address] Erythrocyte distribution width (RBC) [Ratio] 15.1 % Normal 12.0 - 15.6 % [facility]. Comment on above: Performed By: #### 2 72852 #### [place] [address] Hematocrit (Bld) [Volume fraction] 42.3 % Normal 40.0 - 52.0 % [facility] Comment on above: Performed By: #### 2 98342 #### [place] [address] Hemoglobin (Bld) [Mass/Vol] 14.5 g/dL Normal 13.0 - 17.5 g/dL [facility]. Comment on above: Performed By: #### 2 38153 #### [place] [address] Lymph # 1.67 x10EE3/UL Normal 0.80 - 2.80 [facility] Comment on above: Performed By: #### 2 55583 #### [place] [address] Lymphocytes/100 WBC (Bld) 28.7 % Normal 20.0 - 45.0 % [facility] Comment on above: Performed By: #### 2 37768 #### [place] [address] MANUAL DIFF N/A Normal [facility]. Comment on above: Performed By: #### 2 22184 #### [facility],[address] [place] [address] MCH (RBC) [Entitic mass] 31 pg Normal 27 - 33 pg [facility]. Comment on above: Performed By: #### 2 57566 #### [facility],[address] [place] [address] MCHC 34 X10 3 Normal 32 - 36 [facility] Comment on above: Performed By: #### 2 53155 #### [facility],[address] [place] [address] MCV (RBC) [Entitic vol] 89 fL Normal 81 - 98 fL [facility]. Comment on above: Performed By: #### 2 23536 #### [facility],[address] [place] [address] [place] # 0.51 x10EE3/UL Normal 0.20 - 1.00 [facility] Comment on above: Performed By: #### 2 88614 #### [facility],[address] [place] [address] MONOS % 8.8 % Normal 0.0 - 10.0 [facility] Comment on above: Performed By: #### 2 07200 #### [facility],[address] [place] [address] Morphology Amol (Bld) [Interp] N/A Normal [facility].; [facility]. Comment on above: Performed By: #### 2 69494 #### [facility],[address] [place] [address] Neut # 3.46 x10EE3/UL Normal 1.50 - 7.10 [facility] Comment on above: Performed By: #### 2 16627 #### [facility],[address] [place], [place] [id number] Neutrophils/100 WBC (Bld) 59.4 % Normal 46.0 - 76.0 % [facility].; [facility]. Comment on above: Performed By: #### 2 55941 #### [facility],[address] [place], [place] [id number] PLATELET 168 x10EE3/UL Normal 150 - 450 [facility] Comment on above: Performed By: #### 2 19977 #### [place] [address] Platelet mean volume (Bld) [Entitic vol] 8.3 fL Normal 6.4 - 10.5 fL [facility].; [facility]. Comment on above: Result Comment: AUTO MATED DIFFERENTIAL Performed By: #### 2 22756 #### [place] [address] RBC 4.76 x 10EE6/UL Normal 4.50 - 6.00 [facility] Comment on above: Performed By: #### 2 91152 #### [place] [address] WBC 5.8 x 10EE3/UL Normal 4.5 - 10.8 [facility] Comment on above: Performed By: #### 2 08042 #### [place] [id number] CMP with eGFRon 03-21-2024 AGE 78 years Normal [facility] Comment on above: Performed By: #### 2 17509 #### [place] [address] Albumin [Mass/Vol] 3.3 g/dL Abnormal 3.4 - 5.0 g/dL [facility]. Comment on above: Performed By: #### 2 12505 #### [place] [id number] Albumin/Globulin [Mass ratio] 0.8 {ratio} Low 0.9 - 1.6 [facility] Comment on above: Performed By: #### 2 66711 #### [facility],[address] [place], [place] [id number] ALK PHOS 65 U/L Normal 46 - 116 [facility] Comment on above: Performed By: #### 2 16806 #### [facility],[address] [place] [address] ALT [Catalytic activity/Vol] 26 U/L Normal 16 - 63 U/L [facility]. Comment on above: Performed By: #### 2 00043 #### [place] [address] Anion gap [Moles/Vol] 12 mmol/L Normal 10 - 20 mmol/L [facility].; [facility]. Comment on above: Performed By: #### 2 31765 #### [place] [id number] AST [Catalytic activity/Vol] 20 U/L Normal 15 - 37 U/L [facility].; [facility]. Comment on above: Performed By: #### 2 87736 #### [place] [address] B/C RATIO 15 ratio Normal 0 - 30 [facility] Comment on above: Performed By: #### 2 08112 #### [place] [id number] Bilirubin [Mass/Vol] 0.7 mg/dL Normal 0.2 - 1 .0 mg/dL [facility]. Comment on above: Performed By: #### 2 33488 #### [place] [address] Calcium [Mass/Vol] 8.9 mg/dL Normal 8.5 - 10. 1 mg/dL [facility].; [facility]. Comment on above: Performed By: #### 2 25787 #### [facility],[address] [place] [address] Chloride [Moles/Vol] 105 mmol/L Normal 98 - 10 7 mmol/L [facility].; [facility]. Comment on above: Performed By: #### 2 66633 #### [facility],[address] [place] [address] CMP with eGFR Normal [facility] Comment on above: Result Comment: COMP REHENSIVE METABOLIC PANEL Performed By: #### 2 94164 #### [place] [id number] CO2 [Moles/Vol] 27.9 mmol/L Normal 21.0 - 32.0 mmol/L [facility].; [facility]. Comment on above: Performed By: #### 2 37019 #### [facility],[address] [place] [address]228 Creatinine [Mass/Vol] 1.16 mg/dL Normal 0.70 - 1.30 mg/dL [facility].; [facility]. Comment on above: Performed By: #### 2 35645 #### [address] [address] GFR/1.73 sq M.predicted among non-blacks MDRD (S/P/Bld) [Vol rate/Area] mL/min/{1.73_m2} Normal 60 - 999 [facility] Comment on above: Performed By: #### 2 61556 #### [place] [id number] Result Comment: ACCO RDING TO THE NATIONAL KIDNEY DISEASE EDUCATION PROGRAM(NKDE), A NORMAL eGFR IS A VALUE GREATER THAN OR EQUAL TO 60 ML/MIN/1.73 SQ METERS. CHRONIC KIDNEY DISEASE: <60mL/MIN/1.73 SQ METERS KIDNEY FAILURE: <15mL/MIN/1.73 SQ METERS THIS TEST SHOULD ONLY BE USED FOR PATIENTS 18 YEARS OF AGE AND OLDER. Globulin (S) [Mass/Vol] 3.9 g/dL Abnormal 1.5 - 3.8 g/dL [facility].; [facility]. Comment on above: Performed By: #### 2 71132 #### [address] [address] Glucose [Mass/Vol] 94 mg/dL Normal 74 - 106 mg/dL [facility].; [facility]. Comment on above: Performed By: #### 2 71831 #### [address] [address] Potassium [Moles/Vol] 4.5 mmol/L Normal 3.5 - 5.1 mmol/L [facility].; [facility]. Comment on above: Performed By: #### 2 89376 #### [address] [address] Protein [Mass/Vol] 7.2 g/dL Normal 6.4 - 8.2 g/dL [facility].; [facility]. Comment on above: Performed By: #### 2 58567 #### [address] [address] Sodium [Moles/Vol] 140 mmol/L Normal 136 - 145 mmol/L [facility].; [facility] Comment on above: Performed By: #### 2 45275 #### [address] [address] Urea nitrogen [Mass/Vol] 17 mg/dL Normal 7 - 18 mg/dL [facility].; [facility] Comment on above: Performed By: #### 2 68634 #### [address] [address] LACTOFERRIN, QUALITATIVE, ST [facility] 03-21-2024 LACTOFERRIN, QUALITATIVE, STOOL LACTOFERRIN, QUALITATIVE, STOOL { LEUKO EZ THONY NEGATIVE [NEGATIVE INTERNAL CONTROL PASS External Ctrl done? YES A negative or normal test result is consistent with a noninflammatory disease such as IBS. A positive or elevated result indicates the presence of intestinal inflammation; such inflammation is consistent with IBD. Normal [facility] Comment on above: Performed By: #### 2 92197 #### [facility],[address] [place] [address] Laboratory - Chemistry and C hemistry - challengeon 03-21-2024 Albumin [Mass/Vol] 0.8 g/dL Abnormal 0.9 - 1.6 [facility].; [facility]. ALP [Catalytic activity/Vol] 65 U/L Normal 46 - 116 U/L [facility].; [employer] [facility], [facility]. Comprehensive metabolic 2000 panel CMP with eGFR Normal [facility], [facility].; [employer] [facility] GFR/1.73 sq M.predicted among blacks MDRD (S/P/Bld) [Vol rate/Area] mL/min/{1.73_m2} Normal 60 - 999 {ML/MINUTE} [facility].; [facility]. GFR/1.73 sq M.predicted MDRD (S/P/Bld) [Vol rate/Area] mL/min/{1.73_m2} Normal 60 - 999 {ML/MINUTE} [facility] [employer] Lactoferrin LA Ql (Stl) LACTOFERRIN, QUALITATIVE, STOOL Normal [facility] [employer], [facility].; [employer] Urea nitrogen/Creatinine [Mass ratio] 15 {ratio} Normal 0 - 30 {ratio} [facility].; [employer] [facility] Laboratory - Hematology and Cell countson 03-21-2024 Basophils (Bld) [#/Vol] 0.02 {3/UL} Normal 0.00 - 0.10 {3/UL} [facility].; [employer] CBC W Auto Differential panel (Bld) CBC + DIFF Normal [facility].; [employer]. Eosinophils (Bld) [#/Vol] 0.16 {3/UL} Normal 0.00 - 0.50 {3/UL} [employer]. Lymphocytes (Bld) [#/Vol] 1.67 {3/UL} Normal 0.80 - 2.80 {3/UL} [employer]. MCHC (RBC) [Mass/Vol] 34 {X10_3} Normal 32 - 36 {X10_3} [employer]. Monocytes (Bld) [#/Vol] 0.51 {3/UL} Normal 0.20 - 1.00 {3/UL} [employer], [employer]. Monocytes/100 WBC (Bld) 8.8 % Normal 0.0 - 10.0 % [employer] [place]. Neutrophils (Bld) [#/Vol] 3.46 {3/UL} Normal 1.50 - 7.10 {3/UL} [employer]. Platelets (Bld) [#/Vol] 168 {3/UL} Normal 150 - 450 {3/UL} [employer].; [employer], [employer] RBC (Bld) [#/Vol] 4.76 {6/UL} Normal 4.50 - 6.0 0 {6/UL} [employer]. WBC (Bld) [#/Vol] 5.8 {3/UL} Normal 4.5 - 10.8 {3/UL} [employer].; [employer]. No Panel Informationon 03-21 AGE 78 {years} Normal [employer] [facility].; [employer] External Ctrl done? YES Normal [facility] [employer] [place].; [employer], [employer]. Giardia Antigen Negative Normal [facility].; [employer], [employer]. Observation duration PASS Normal [facility] [employer] [facility].; [employer]. OCCULT BLOOD STOOL(NON-CANCE R SCREENING)on 03-21-2024 OCCULT BLOOD STOOL Negative Normal [facility] Comment on above: Performed By: #### 2 03824 #### [facility],[address] [place] [address] STOOL CULTURE [SILAS]on Stool culture STOOL CULTURE [SILAS] 03/27/24.115Martha.ARIA LETE Normal [facility] Comment on above: Performed By: #### 2 55676 #### [facility],[address] [place] [address] LIPID PROFILEon 02-21-2024 Cholesterol [Mass/Vol] 110 mg/dL Normal 0 - 240 [facility] Comment on above: Performed By: #### 2 13580 #### [facility],[address] [place] [address] Cholesterol in HDL [Mass/Vol] 38 mg/dL Low 40 - 60 [facility] Comment on above: Performed By: #### 2 96837 #### [facility],[address] [place] [address] Cholesterol in LDL [Mass/Vol] 54 mg/dL Normal 0 - 129 [facility] Comment on above: Performed By: #### 2 03366 #### [facility],[address] [place] [address] Cholesterol.total/Ch olesterol in HDL [Mass ratio] 2.9 {ratio} Normal 0.0 - 5.0 [facility] Comment on above: Performed By: #### 2 36320 #### [facility],[address] [place] [address]185 Lipid 1996 panel Normal [facility] Comment on above: Result Comment: LIPI D PROFILE Performed By: #### 2 86260 #### [facility],[address] [place] [address] Triglyceride [Mass/Vol] 88 mg/dL Normal 0 - 150 [facility] Comment on above: Performed By: #### 2 54892 #### [facility],[address] [place] [address] APTTon 06-14-2023 aPTT Coag (Bld) [Time] 26.0 s Normal 25.4 - 38.4 [facility] Comment on above: Performed By: #### 2 26052 #### [facility],[address] [place], [place] [id number] CBC + DIFFon 06-14-2023 Baso # 0.00 x10EE3/UL Normal 0.00 - 0.10 [facility] Comment on above: Performed By: #### 2 22391 #### [facility],[address] [place] [address] Basophils/100 WBC (Bld) 0.4 % Normal 0.0 - 2.0 [facility] Comment on above: Performed By: #### 2 94411 #### [facility],[address] [place] [address] CBC + DIFF Normal [facility] Comment on above: Result Comment: CBC- COMPLETE BLOOD COUNT Performed By: #### 2 77805 #### [facility],[address] [place] [address]67 EO # 0.00 x10EE3/UL Normal 0.00 - 0.50 [facility] Comment on above: Performed By: #### 2 13872 #### [facility],[address] [place] [address] Eosinophils/100 WBC (Bld) 0.5 % Normal 0.0 - 7.0 [facility] Comment on above: Performed By: #### 2 10276 #### [facility],[address] [place], [place] [id number] Erythrocyte distribution width (RBC) [Ratio] 14.6 % Normal 12.0 - 15.6 [facility] Comment on above: Performed By: #### 2 66139 #### [facility],[address] [place] [address] Hematocrit (Bld) [Volume fraction] 40.2 % Normal 40.0 - 52.0 [facility] Comment on above: Performed By: #### 2 36497 #### [facility],[address] [place] [address] Hemoglobin (Bld) [Mass/Vol] 13.6 g/dL Normal 13.0 - 17.5 [facility] Comment on above: Performed By: #### 2 92107 #### [facility],[address] [place] [address]70 Lymph # 1.00 x10EE3/UL Normal 0.80 - 2.80 [facility] Comment on above: Performed By: #### 2 64313 #### [facility],[address] [place] [address] Lymphocytes/100 WBC (Bld) 10.9 % Low 20.0 - 45.0 [facility] Comment on above: Performed By: #### 2 18232 #### [facility],[address] [place] [address] MANUAL DIFF N/A Normal [facility] Comment on above: Performed By: #### 2 58786 #### [facility],[address] [place] [address] MCH (RBC) [Entitic mass] 30 pg Normal 27 - 33 [facility] Comment on above: Performed By: #### 2 74070 #### [facility],[address] [place] [address] MCHC 34 X10 3 Normal 32 - 36 [facility] Comment on above: Performed By: #### 2 62483 #### [facility],[address] [place] [address]70 MCV (RBC) [Entitic vol] 90 fL Normal 81 - 98 [facility] Comment on above: Performed By: #### 2 83334 #### [facility],[address] [place] [address] [place] # 1.10 x10EE3/UL High 0.20 - 1.00 [facility] Comment on above: Performed By: #### 2 91533 #### [facility],[address] [place] [address] MONOS % 12.4 % High 0.0 - 10.0 [facility] Comment on above: Performed By: #### 2 49737 #### [facility],[address] [place] [address]247 Morphology Amol (Bld) [Interp] N/A Normal [facility] Comment on above: Result Comment: {CD] Performed By: #### 2 92620 #### [facility],[address] [place] [address]79 Neut # 6.70 x10EE3/UL Normal 1.50 - 7.10 [facility] Comment on above: Performed By: #### 2 76678 #### [facility],[address] [place] [address] Neutrophils/100 WBC (Bld) 75.8 % Normal 46.0 - 76.0 [facility] Comment on above: Performed By: #### 2 23099 #### [facility],[address] [place] [address]167 PLATELET 302 x10EE3/UL Normal 150 - 450 [facility] Comment on above: Performed By: #### 2 05842 #### [facility],[address] [place] [address]201 Platelet mean volume (Bld) [Entitic vol] 7.8 fL Normal 6.4 - 10.5 [facility] Comment on above: Result Comment: AUTO MATED DIFFERENTIAL Performed By: #### 2 98294 #### [facility],[address] [place] [address] 88297 RBC 4.46 x 10EE6/UL Low 4.50 - 6.00 [facility] Comment on above: Performed By: #### 2 13352 #### [facility],[address] [place] [address] WBC 8.8 x 10EE3/UL Normal 4.5 - 10.8 [facility] Comment on above: Performed By: #### 2 52411 #### [facility],[address] [place] [address] CMP with eGFRon 06-14-2023 AGE 77 years Normal [facility] Comment on above: Performed By: #### 2 64062 #### [facility],[address] [place] [address]31 Albumin [Mass/Vol] 2.8 g/dL Low 3.4 - 5.0 [facility] Comment on above: Performed By: #### 2 26794 #### [facility],[address] [place] [address]27 Albumin/Globulin [Mass ratio] 0.6 {ratio} Low 0.9 - 1.6 [facility] Comment on above: Performed By: #### 2 13749 #### [facility],[address] [place] [address]0901 ALK PHOS 73 U/L Normal 46 - 116 [facility] Comment on above: Performed By: #### 2 57605 #### [facility],[address] [place] [address]858 ALT [Catalytic activity/Vol] 26 U/L Normal 16 - 63 [facility] Comment on above: Performed By: #### 2 89171 #### [facility],[address] [place] [address]84 Anion gap [Moles/Vol] 13 mmol/L Normal 10 - 20 [facility] Comment on above: Performed By: #### 2 90723 #### [facility],[address] [place] [address]707 AST [Catalytic activity/Vol] 15 U/L Normal 15 - 37 [facility] Comment on above: Performed By: #### 2 88419 #### [facility],[address] [place] [address]115 B/C RATIO 15 ratio Normal 0 - 30 [facility] Comment on above: Performed By: #### 2 17783 #### [facility],[address] [place] [address] 07799 Bilirubin [Mass/Vol] 0.9 mg/dL Normal 0.2 - 1.0 [facility] Comment on above: Performed By: #### 2 30637 #### [facility],[address] [place] [address]182 Calcium [Mass/Vol] 9.3 mg/dL Normal 8.5 - 10.1 [facility] Comment on above: Performed By: #### 2 50421 #### [facility],[address] [place] [address] 12535 Chloride [Moles/Vol] 98 mmol/L Normal 98 - 107 [facility] Comment on above: Performed By: #### 2 84990 #### [facility],[address] [place] [address] CMP with eGFR Normal [facility] Comment on above: Result Comment: COMP REHENSIVE METABOLIC PANEL Performed By: #### 2 20916 #### [facility],[address] [place] [address]480 CO2 [Moles/Vol] 26.6 mmol/L Normal 21.0 - 32.0 [facility] Comment on above: Performed By: #### 2 15041 #### [facility],[address] [place] [address]321 Creatinine [Mass/Vol] 1.32 mg/dL High 0.70 - 1.30 [facility] Comment on above: Performed By: #### 2 90559 #### [facility],[address] [place] [address]9033 eGFR 52 ML/MINUTE Low 60 - 999 [facility] Comment on above: Performed By: #### 2 01436 #### [facility],[address] [place] [address] GFR/1.73 sq M.predicted among non-blacks MDRD (S/P/Bld) [Vol rate/Area] mL/min/{1.73_m2} Normal 60 - 999 [facility] Comment on above: Result Comment: ACCO RDING TO THE NATIONAL KIDNEY DISEASE EDUCATION PROGRAM(NKDE), A NORMAL eGFR IS A VALUE GREATER THAN OR EQUAL TO 60 ML/MIN/1.73 SQ METERS. CHRONIC KIDNEY DISEASE: <60mL/MIN/1.73 SQ METERS KIDNEY FAILURE: <15mL/MIN/1.73 SQ METERS THIS TEST SHOULD ONLY BE USED FOR PATIENTS 18 YEARS OF AGE AND OLDER. Performed By: #### 2 74205 #### [facility],[address] [place] [address] Globulin (S) [Mass/Vol] 4.8 g/dL High 1.5 - 3.8 [facility] Comment on above: Performed By: #### 2 74869 #### [address] [address] Glucose [Mass/Vol] 107 mg/dL High 74 - 106 [facility] Comment on above: Performed By: #### 2 07833 #### [facility],[address] [place] [address]656 Potassium [Moles/Vol] 4.8 mmol/L Normal 3.5 - 5.1 [facility] Comment on above: Performed By: #### 2 96288 #### [address] [address] Protein [Mass/Vol] 7.6 g/dL Normal 6.4 - 8.2 [facility] Comment on above: Performed By: #### 2 41456 #### [facility],[address] [place] [address]382 Sodium [Moles/Vol] 133 mmol/L Low 136 - 145 [facility] Comment on above: Performed By: #### 2 79310 #### [facility],[address] [place] [address]139 Urea nitrogen [Mass/Vol] 20 mg/dL High 7 - 18 [facility] Comment on above: Performed By: #### 2 98631 #### [facility],[address] [place] [address] ANGIO AAA WITH RUNOFFon 1 08-15-2022 CT ANGIO AAA WITH RUNOFF [address] [address] Patient: INDERJIT BOWEN Phone#: : 1945 Age: 77 Gender: M Pt. Type: ER Account: [id number] Location: [facility] Ordering: ROSELIA PACHECO Exam Date: 06/14/2023/12:28 Family Phys: ENA MICHELLE Charge Code: 318355 Physician: Spencer Order #: [id number] Dose#: 13.30 PROCEDURE: CT ANGIOGRAPHY AAA WITH RUNOFF WITH CONTRAST COMPARISON: None. INDICATIONS: Hip pain. TECHNIQUE: After obtaining the patient's consent, CT images of the abdomen, pelvis, and lower extremities were obtained with non-ionic intravenous contrast material. MPR/MIPS and 3D images were created to optimize visualization of vascular anatomy. All CT scans at this facility use dose modulation, iterative reconstruction, and/or weight based dosing when appropriate to reduce radiation dose to as low as reasonably achievable. IV CONTRAST: Omnipaque 350,125ml TOTAL DOSE: 13.30 CTDIvol(mGy) FINDINGS: AORTO-ILIAC: No aortic aneurysm. There is aorto-biiliac endo graft is present. There is calcified noncalcified plaque of the aorta. There is an excluded thrombosed abdominal aortic aneurysm; the grafts within the aneurysm are patent. Aneurysm extends into the bilateral common iliac arteries. Endograft terminates in the proximal external iliac arteries. RIGHT LEG: There is approximately 50% atherosclerotic narrowing of the femoral artery, series 3, image 52. There is segment atherosclerotic narrowing and irregularity of the proximal femoral artery, series 3, image 70, measuring 0.3 cm in length. There is complete occlusion of the femoral artery from the mid femur to the distal femur, approximately 20 cm in length. There is contrast opacification of the distal femoral artery, popliteal artery, peroneal, posterior tibial and anterior tibial arteries with contrast opacification to the level of the ankle. LEFT LEG: The common femoral and deep femoral arteries are patent. Occlusion of the left femoral artery to the level of the distal femoral artery, series 3, image 66, approximately 22 cm in length. There is contrast opacification from the distal femoral artery is the level of the ankles. Contrast opacification the proximal anterior tibial artery with absent contrast opacification the mid to distal anterior tibial artery. There is atherosclerotic Continued Report - Page 2 of 2 Patient: INDERJIT BOWEN Phone#: : 1945 Age: 77 Gender: M Pt. Type: ER Account: [id number] Location: [facility] Ordering: ROSELIA PACHECO Exam Date: 06/14/2023/12:28 Family Phys: ENA SORIANO Charge Code: [id number] Physician: Spencer Order #: [id number] Dose#: 13.30 calcification of the mid and distal anterior tibial artery. Contrast opacification to the level of the ankles in the peroneal and posterior tibial arteries. LIVER: Partially imaged evaluation of the liver. Two areas of arterial enhancement in the liver, adjacent to the gallbladder measuring 0.8 x 0.6 cm, series 3, image 14. In the inferior right lobe 2nd area measures 0.7 x 0.7 cm, image 15 BILIARY: Gallbladder is present. PANCREAS: Normal. No lesion, fluid collection, ductal dilatation, or atrophy. SPLEEN: Partially imaged. Imaged portion is unremarkable. KIDNEYS: Symmetric enhancement of the kidneys. Low-attenuation lesions in the left kidney, too small to characterize. ADRENALS: Normal. No mass or enlargement. RETROPERITONEUM: Normal. No mass or adenopathy. BOWEL/MESENTERY: No dilated loops of bowel in the imaged portion of the abdomen. There is moderate stool burden. Appendix is unremarkable in size and contains air ABDOMINAL WALL: Normal. No mass or hernia. URINARY BLADDER: Normal. No visible focal wall thickening, lesion, or calculus. PELVIC NODES: Normal. No adenopathy. PELVIC ORGANS: Normal. No visible mass. Pelvic organs appropriate for patient age. BONES: There is disc height loss at L2-3, L3-4, L4-5 and L5-S1. Osseous fusion of L4 and L5. Osseous foraminal narrowing at L5-S1. LUNG BASES: Normal. No visible pulmonary or pleural disease. OTHER: Negative. CONCLUSION: 1. Bilateral femoral artery occlusion. Reconstitution of flow in the bilateral distal femoral arteries. This finding was communicated to Dr. Isabel at 1330 on 06/14/2023. 2. On the right there is 3 vessel patency to the ankles. On the left there is 2 vessel patency to the ankle. 3. Nonspecific arterial enhancement in the liver, incompletely characterized on this exam. Consider dedicated liver contrast enhanced evaluation when the patient is clinically able. Dictated by: Nelda Ignacio MD on 06/14/2023 at 12:59 Approved by: Nelda Ignacio MD on 06/14/2023 at 14:06 Normal [facility] LIPASEon 06-14-2023 Lipase [Catalytic activity/Vol] 66.0 U/L Low 73.0 - 393 [facility] Comment on above: Performed By: #### 2 63771 #### [facility],[address] [place], [place] [id number] PROTHROMBIN TIME AND INRon 1 08-15-2022 INR Coag (PPP) [Relative time] 1.2 {INR} Normal 0.8 - 1.2 [facility] Comment on above: Result Comment: T HE HEMOSIL THROMBOPLASTIN REAGENT USED IN THE PROTHROMBIN TIME TEST INTERACTS WITH THE DRUG CUBICIN (DAPTOMYCIN) AND WILL RESULT IN FALSELY ELEVATED PT / INR RESULTS INR INTERPRETATION INR INDICATION PREVENTION AND TREATMENT OF THROMBOEMBOLISM ASSOCIATED WITH: 2.0 - 3.0 ATRIAL FIBRILLATION, BIOPROSTHETIC HEART VALVES, PULMONARY EMBOLISM, VENOUS THROMBOSIS, SYSTEMIC EMBOLISM POST MYOCARDIAL INFARCTION 2.5 - 3.5 MECHANICAL HEART VALVES Performed By: #### 2 74499 #### [facility],[address] [place], [place] [id number] PROTHROMBIN TIME AND INR Normal [facility] Comment on above: Result Comment: PROT HROMBIN TIME AND INR Performed By: #### 2 83522 #### [facility],[address] [place] [address] 80831 PT-COUMADIN 14.2 sec High 9.3 - 14.1 [facility] Comment on above: Performed By: #### 2 80379 #### [facility],[address] [place] [address] 99169 .Auto Diffon 06-04-2023 Basophil, Absolute 0.0 10 3/mcL Normal 0.0-0.3 [facility] ([place]) Comment on above: Performed By: #### A DIFF, ANEU, BMP, GFR, CBC #### [address] [address] Basophils/100 WBC (Bld) 0.4 % Normal 0.0-2.5 [facility] ([place] Comment on above: Performed By: #### A DIFF, ANEU, BMP, GFR, CBC #### [address] [address] Eosinophil, Absolute 0.1 10 3/mcL Normal 0.0-0.7 [facility] ([place] Comment on above: Performed By: #### A DIFF, ANEU, BMP, GFR, CBC #### [address] [address] Eosinophils/100 WBC (Bld) 1.5 % Normal 0.0-6.0 [facility] ([place] Comment on above: Performed By: #### A DIFF, ANEU, BMP, GFR, CBC #### [address] [address] Lymphocyte, Absolute 1.2 10 3/mcL Normal 0.9-4.3 [facility] ([place] Comment on above: Performed By: #### A DIFF, ANEU, BMP, GFR, CBC #### [address] [address] Lymphocytes/100 WBC (Bld) 14.1 % Low 20.0-40.0 [facility] ([place] Comment on above: Performed By: #### A DIFF, ANEU, BMP, GFR, CBC #### [place] [id number] [address] [place] [address] 43734 Monocyte, Absolute 0.8 10 3/mcL Normal 0.1-1.4 [facility] ([place] Comment on above: Performed By: #### A DIFF, ANEU, BMP, GFR, CBC #### [address] [address] Monocytes/100 WBC (Bld) 8.7 % Normal 2.0-13.0 [facility] ([place] Comment on above: Performed By: #### A DIFF, ANEU, BMP, GFR, CBC #### [address] [address] Neutrophils/100 WBC (Bld) 75.3 % High 50.0-75.0 [facility] ([place] Comment on above: Performed By: #### A DIFF, ANEU, BMP, GFR, CBC #### [address] [address] .GFRon 06-04-2023 GFR >60 Normal [facility] ([place]) Comment on above: Result Comment: GFR Population mean for , Non- Americans Ages 20-29 = 116 mL/min/1.73 sq.m. Ages 30-39 = 107 mL/min/1.73 sq.m. Ages 40-49 = 99 mL/min/1.73 sq.m. Ages 50-59 = 93 mL/min/1.73 sq.m. Ages 60-69 = 85 mL/min/1.73 sq.m. Ages 70+ = 75 mL/min/1.73 sq.m. Chronic Kidney Disease: Less than 60 mL/min/1.73 square meters End Stage Renal Disease: Less than 15 mL/min/1.73 square meters Performed By: #### G FR, CRE #### [place] [address] [address] GFR Non- >60 Normal [facility] ([place] Comment on above: Result Comment: GFR Population mean for , Non- Americans Ages 20-29 = 116 mL/min/1.73 sq.m. Ages 30-39 = 107 mL/min/1.73 sq.m. Ages 40-49 = 99 mL/min/1.73 sq.m. Ages 50-59 = 93 mL/min/1.73 sq.m. Ages 60-69 = 85 mL/min/1.73 sq.m. Ages 70+ = 75 mL/min/1.73 sq.m. Chronic Kidney Disease: Less than 60 mL/min/1.73 square meters End Stage Renal Disease: Less than 15 mL/min/1.73 square meters Performed By: #### Octavio FR, CRE #### Sil[place] [address] [address] .NEUABSon 06-04-2023 Neutrophil, Absolute 6.5 10 3/mcL Normal 2.3-8.1 [facility] ([place] Comment on above: Performed By: #### A DIFF, ANEU, BMP, GFR, CBC #### [address] [address] BMPon 06-04-2023 BUN/Creatinine Ratio 14.3 ratio Normal 10.0-22.0 [facility] ([place]) Comment on above: Performed By: #### Octavio FR, CRE #### [address] [address] Calcium [Mass/Vol] 8.5 mg/dL Low 8.7-10.4 [facility] ([place] Comment on above: Performed By: #### Octavio FR, CRE #### [address] [address] Chloride [Moles/Vol] 111 mmol/L High 98-110 [facility] ([place] Comment on above: Performed By: #### Octavio FR, CRE #### [address] [address] CO2 [Moles/Vol] 24 mmol/L Normal 22-32 [facility] ([place] Comment on above: Performed By: #### Octavio FR, CRE #### [address] [address] Creatinine [Mass/Vol] 0.98 mg/dL Normal 0.60-1.40 [facility] ([place] Comment on above: Performed By: #### Octavio FR, CRE #### [address] [address] Electrolyte Balance 4.0 mEq/L Normal 4.0-15.0 [facility] ([place]) Comment on above: Performed By: #### Octavio FR, CRE #### [address] [address] Glucose [Mass/Vol] 119 mg/dL High 82-115 [facility] ([place] Comment on above: Performed By: #### Octavio APPLE, CRE #### [address] [address] Potassium [Moles/Vol] 4.4 mmol/L Normal 3.5-5.0 [facility] ([place] Comment on above: Performed By: #### Octavio APPLE, CRE #### [address] [address] Sodium [Moles/Vol] 139 mmol/L Normal 136-145 [facility] ([place] Comment on above: Performed By: #### Octavio APPLE, CRE #### [address] [address] Urea nitrogen [Mass/Vol] 14.0 mg/dL Normal 8.0-22.0 [facility] ([place] Comment on above: Performed By: #### Octavio APPLE, CRE #### [address] [address] CBCon 06-04-2023 Erythrocyte distribution width (RBC) [Ratio] 14.6 % Normal 11.5-15.5 [facility] ([place] Comment on above: Performed By: #### A DIFF, ANEU, BMP, GFR, CBC #### [address] [address] Hematocrit (Bld) [Volume fraction] 39.3 % Low 40.0-52.0 [facility] ([place] Comment on above: Performed By: #### A DIFF, ANEU, BMP, GFR, CBC #### [address] [address] Hgb 13.3 G/dL Normal 13.0-17.5 [facility] ([place] Comment on above: Performed By: #### A DIFF, ANEU, BMP, GFR, CBC #### [place] [address] MCH (RBC) [Entitic mass] 31.2 pg Normal 27.0-33.0 [facility] ([place] Comment on above: Performed By: #### A DIFF, ANEU, BMP, GFR, CBC #### [place] [address] MCHC 33.8 G/dL Normal 32.0-36.0 [facility] ([place] Comment on above: Performed By: #### A DIFF, ANEU, BMP, GFR, CBC #### [place] [address] MCV (RBC) [Entitic vol] 92.4 fL Normal 81.0-100.0 [facility] ([place] Comment on above: Performed By: #### A DIFF, ANEU, BMP, GFR, CBC #### [place] [address] Platelet 145 10 3/mcL Low 150-450 [facility] ([place] Comment on above: Performed By: #### A DIFF, ANEU, BMP, GFR, CBC #### [place] [address] Platelet mean volume (Bld) [Entitic vol] 8.5 fL Normal 6.4-10.5 [facility] ([place] Comment on above: Performed By: #### A DIFF, ANEU, BMP, GFR, CBC #### [place] [address] RBC 4.26 10 6/mcL Low 4.50-6.00 [facility] ([place]) Comment on above: Performed By: #### A DIFF, ANEU, BMP, GFR, CBC #### [place] [address] WBC 8.6 10 3/mcL Normal 4.5-10.8 [facility] ([place] Comment on above: Performed By: #### A DIFF, ANEU, BMP, GFR, CBC #### [place] [address] LABORATORYOrdered By: SYSTEM SYSTEM on 06-04-2023 Basophils (Bld) [#/Vol] 0.0 103/mcL Normal 0.0 - 0.3 10^3/mcL AH Workflow SS Basophils/100 WBC (Bld) 0.4 % Normal 0.0 - 2.5 % AH Workflow SS Calcium [Mass/Vol] 8.5 mg/dL Low 8.7 - 10. 4 mg/dL AH ADM SS Chloride [Moles/Vol] 111 mmol/L High 98 - 11 0 mEq/L ADM SS CO2 [Moles/Vol] 24 mmol/L Normal 22 - 32 mEq/L AH ADM SS Creatinine [Mass/Vol] 0.98 mg/dL Normal 0.60 - 1.40 mg/dL AH ADM SS Electrolyte Balance 4.0 mEq/L Normal 4.0 - 15 .0 mEq/L ADM SS Eosinophils (Bld) [#/Vol] 0.1 103/mcL Normal 0.0 - 0.7 10^3/mcL AH Workflow SS Eosinophils/100 WBC (Bld) 1.5 % Normal 0.0 - 6.0 % AH Workflow SS Erythrocyte distribution width (RBC) [Ratio] 14.6 % Normal 11.5 - 15.5 % AH Workflow SS GFR/1.73 sq M.predicted among blacks MDRD (S/P/Bld) [Vol rate/Area] ml/min/1.73sqm Invalid Interpretation Code AH ADM SS Comment on above: Interpretive Data: GFR Population mean for , Non- Americans Ages 20-29 = 116 mL/min/1.73 sq.m. Ages 30-39 = 107 mL/min/1.73 sq.m. Ages 40-49 = 99 mL/min/1.73 sq.m. Ages 50-59 = 93 mL/min/1.73 sq.m. Ages 60-69 = 85 mL/min/1.73 sq.m. Ages 70+ = 75 mL/min/1.73 sq.m. Chronic Kidney Disease: Less than 60 mL/min/1.73 square meters End Stage Renal Disease: Less than 15 mL/min/1.73 square meters GFR/1.73 sq M.predicted among non-blacks MDRD (S/P/Bld) [Vol rate/Area] ml/min/1.73sqm Invalid Interpretation Code AH ADM SS Comment on above: Interpretive Data: GFR Population mean for , Non- Americans Ages 20-29 = 116 mL/min/1.73 sq.m. Ages 30-39 = 107 mL/min/1.73 sq.m. Ages 40-49 = 99 mL/min/1.73 sq.m. Ages 50-59 = 93 mL/min/1.73 sq.m. Ages 60-69 = 85 mL/min/1.73 sq.m. Ages 70+ = 75 mL/min/1.73 sq.m. Chronic Kidney Disease: Less than 60 mL/min/1.73 square meters End Stage Renal Disease: Less than 15 mL/min/1.73 square meters Glucose [Mass/Vol] 119 mg/dL High 82 - 115 mg/dL ADM SS Hematocrit (Bld) [Volume fraction] 39.3 % Low 40.0 - 52.0 % AH Workflow SS Hemoglobin (Bld) [Mass/Vol] 13.3 G/dL Normal 13.0 - 17.5 G/dL AH Workflow SS Lymphocytes (Bld) [#/Vol] 1.2 103/mcL Normal 0.9 - 4.3 10^3/mcL AH Workflow SS Lymphocytes/100 WBC (Bld) 14.1 % Low 20.0 - 40.0 % AH Workflow SS MCH (RBC) [Entitic mass] 31.2 pg Normal 27.0 - 33.0 pg AH Workflow SS MCHC 33.8 G/dL Normal 32.0 - 36.0 G/dL AH Workflow SS MCV (RBC) [Entitic vol] 92.4 fL Normal 81.0 - 100.0 fL AH Workflow SS Monocytes (Bld) [#/Vol] 0.8 103/mcL Normal 0.1 - 1.4 10^3/mcL AH Workflow SS Monocytes/100 WBC (Bld) 8.7 % Normal 2.0 - 13.0 % AH Workflow SS Neutrophils (Bld) [#/Vol] 6.5 103/mcL Normal 2.3 - 8.1 10^3/mcL AH Workflow SS Neutrophils/100 WBC (Bld) 75.3 % High 50.0 - 75.0 % AH Workflow SS Platelet mean volume (Bld) [Entitic vol] 8.5 fL Normal 6.4 - 10.5 fL AH Workflow SS Platelets (Bld) [#/Vol] 145 103/mcL Low 150 - 450 10^3/mcL AH Workflow SS Potassium [Moles/Vol] 4.4 mmol/L Normal 3.5 - 5.0 mEq/L AH ADM SS RBC (Bld) [#/Vol] 4.26 106/mcL Low 4.50 - 6.0 0 10^6/mcL AH Workflow SS Sodium [Moles/Vol] 139 mmol/L Normal 136 - 145 mEq/L AH ADM SS Urea nitrogen [Mass/Vol] 14.0 mg/dL Normal 8.0 - 22.0 mg/dL AH ADM SS Urea nitrogen/Creatinine [Mass ratio] 14.3 ratio Normal 10.0 - 22.0 ratio AH ADM SS WBC (Bld) [#/Vol] 8.6 103/mcL Normal 4.5 - 10.8 10^3/mcL AH Workflow SS ABO/Rh (Gel)on 06-03-2023 ABO/Rh Interp Positive Invalid Interpretation Code [facility] ([place] Comment on above: Performed By: #### G FR, CRE #### [address] [address] ABS (Gel)on 06-03-2023 ABSC Interp (Gel) Negative Normal [facility] ([place] Comment on above: Performed By: #### G FR, CRE #### [address] [address] APTTon 06-03-2023 aPTT Coag (Bld) [Time] 29.5 s Normal 25.0-35.0 [facility] ([place] Comment on above: Result Comment: For Heparin anticoagulation therapy, the recommended therapeutic range is: 54-77 seconds (APTT Correlation with Anti-Xa therapeutic range of 0.3-0.7 units/ml). PLEASE REFERENCE THE PHARMACY PROTOCOL FOR DOSING. Performed By: #### P RO, PLT, FIB #### [address] [address] Heparin dose (APTT) None Normal [facility] ([place] Comment on above: Performed By: #### P RO, PLT, FIB #### [address] [address] FIBon 06-03-2023 Fibrinogen 455 mg/dL Normal 250-560 [facility] ([place] Comment on above: Performed By: #### P RO, PLT, FIB #### [facility] [address] [place] [id number] IR ARTERIOGRAM ABDOMINALon 1 08-03-2022 IR ARTERIOGRAM ABDOMINAL ORIGINAL Images acquired, not reported on this accession number. Normal [facility] ([place] LABORATORYOrdered By: Nicholas Huff on 06-03-2023 ABO and Rh group Nom (Bld) Blood group O Rh(D) positive Invalid Interpretation Code BB Auto SS Blood group antibody screen Ql Negative ABSC (06/03/23 9:25 AM) Normal BB Auto SS LABORATORYOrdered By: Madhavi Elaine on 06-03-2023 aPTT Coag (Bld) [Time] 29.5 s Normal 25.0 - 35.0 seconds AH [facility] SS Comment on above: Interpretive Data: F or Heparin anticoagulation therapy, the recommended therapeutic range is: 54-77 seconds (APTT Correlation with Anti-Xa therapeutic range of 0.3-0.7 units/ml). PLEASE REFERENCE THE PHARMACY PROTOCOL FOR DOSING. Fibrinogen 455 mg/dL Normal 250 - 560 mg/dL AH [facility] SS Heparin dose (APTT) None Normal Co agulation S PT Coag (PPP) [Time] 12.8 s Normal 9.0 - 1 4.2 seconds AH [facility] SS Comment on above: Interpretive Data: E ffective 01/17/08, Protime results may be affected by some antibiotics (i.e. Ciprofloxacin, Azithromycin, Bactrim) which may potentiate the action of oral anticoagulants, with further increases in Protime/INR. PT International Ratio 1.1 ratio Invalid Interpretation Code [facility] SS Comment on above: Interpretive Data: T he [employer] (CHEST, 1992, 102:312S-25S) recommended therapeutic range for oral anticoagulant therapy is: LOW RISK: Prophylaxis of venous thrombosis INR: 2.0-3.0 Treatment of pulmonary embolism 2.0-3.0 Prevention of systemic embolism 2.0-3.0 HIGH RISK: Mechanical prosthetic valves 2.5-3.5 LABORATORYOrdered By: SYSTEM SYSTEM on 06-03-2023 Platelets (Bld) [#/Vol] 200 103/mcL Normal 150 - 450 10^3/mcL AH Workflow SS PLTon 06-03-2023 Platelet 200 10 3/mcL Normal 150-450 [facility] ([place] Comment on above: Performed By: #### P RO, PLT, FIB #### [place] [id number] [place] [id number] PROon 06-03-2023 INR Coag (PPP) [Relative time] 1.1 {INR} Normal [facility] ([place] Comment on above: Result Comment: The [employer] (CHEST, 1992, 102:312S-25S) recommended therapeutic range for oral anticoagulant therapy is: LOW RISK: Prophylaxis of venous thrombosis INR: 2.0-3.0 Treatment of pulmonary embolism 2.0-3.0 Prevention of systemic embolism 2.0-3.0 HIGH RISK: Mechanical prosthetic valves 2.5-3.5 Performed By: #### P RO, PLT, FIB #### [address] [address] PT Coag (PPP) [Time] 12.8 s Normal 9.0-14.2 [facility] ([place]) Comment on above: Result Comment: Effe ctive 01/17/08, Protime results may be affected by some antibiotics (i.e. Ciprofloxacin, Azithromycin, Bactrim) which may potentiate the action of oral anticoagulants, with further increases in Protime/INR. Performed By: #### P RO, PLT, FIB #### [address] [address] .Auto Diffon 05-26-2023 Basophil, Absolute 0.0 10 3/mcL Normal 0.0-0.3 [facility] ([place]) Comment on above: Performed By: #### G FR, CRE #### [address] [address] Basophils/100 WBC (Bld) 0.5 % Normal 0.0-2.5 [facility] ([place] Comment on above: Performed By: #### G FR, CRE #### [address] [address] Eosinophil, Absolute 0.1 10 3/mcL Normal 0.0-0.7 [facility] ([place] Comment on above: Performed By: #### G FR, CRE #### [address] [address] Eosinophils/100 WBC (Bld) 2.5 % Normal 0.0-6.0 [facility] ([place] Comment on above: Performed By: #### G FR, CRE #### [address] [address] Lymphocyte, Absolute 1.1 10 3/mcL Normal 0.9-4.3 [facility] ([place] Comment on above: Performed By: #### G FR, CRE #### [address] [address] Lymphocytes/100 WBC (Bld) 19.7 % Low 20.0-40.0 [facility] ([place] Comment on above: Performed By: #### G FR, CRE #### [address] [address] Monocyte, Absolute 0.6 10 3/mcL Normal 0.1-1.4 [facility] ([place] Comment on above: Performed By: #### G FR, CRE #### [address] [address] Monocytes/100 WBC (Bld) 10.2 % Normal 2.0-13.0 [facility] ([place] Comment on above: Performed By: #### G FR, CRE #### [address] [address] Neutrophils/100 WBC (Bld) 67.1 % Normal 50.0-75.0 [facility] ([place] Comment on above: Performed By: #### G FR, CRE #### [address] [address] .GFRon 05-26-2023 GFR >60 Normal [facility] ([place] Comment on above: Result Comment: GFR Population mean for , Non- Americans Ages 20-29 = 116 mL/min/1.73 sq.m. Ages 30-39 = 107 mL/min/1.73 sq.m. Ages 40-49 = 99 mL/min/1.73 sq.m. Ages 50-59 = 93 mL/min/1.73 sq.m. Ages 60-69 = 85 mL/min/1.73 sq.m. Ages 70+ = 75 mL/min/1.73 sq.m. Chronic Kidney Disease: Less than 60 mL/min/1.73 square meters End Stage Renal Disease: Less than 15 mL/min/1.73 square meters Performed By: #### Octavio APPLE, CRE #### [address] [address] GFR Non- >60 Normal [facility] ([place] Comment on above: Result Comment: GFR Population mean for , Non- Americans Ages 20-29 = 116 mL/min/1.73 sq.m. Ages 30-39 = 107 mL/min/1.73 sq.m. Ages 40-49 = 99 mL/min/1.73 sq.m. Ages 50-59 = 93 mL/min/1.73 sq.m. Ages 60-69 = 85 mL/min/1.73 sq.m. Ages 70+ = 75 mL/min/1.73 sq.m. Chronic Kidney Disease: Less than 60 mL/min/1.73 square meters End Stage Renal Disease: Less than 15 mL/min/1.73 square meters Performed By: #### Octavio APPLE, CRE #### [address] [address] .NEUABSon 05-26-2023 Neutrophil, Absolute 3.8 10 3/mcL Normal 2.3-8.1 [facility] ([place] Comment on above: Performed By: #### G , CRE #### [address] [address] ABO/Rh (Gel)on 05-26-2023 ABO/Rh Interp Positive Invalid Interpretation Code [facility] ([place] Comment on above: Performed By: #### Octavio APPLE, CRE #### [address] [address] ABS (Gel)on 05-26-2023 ABSC Interp (Gel) Negative Normal [facility] ([place] Comment on above: Performed By: #### G FR, CRE #### [address] [address] BMPon 05-26-2023 BUN/Creatinine Ratio 18.6 ratio Normal 10.0-22.0 [facility] ([place] Comment on above: Performed By: #### G FR, CRE #### [address] [address] Calcium [Mass/Vol] 9.0 mg/dL Normal 8.7-10.4 [facility] ([place] Comment on above: Performed By: #### G FR, CRE #### [address] [address] Chloride [Moles/Vol] 110 mmol/L Normal 98-110 [facility] ([place] Comment on above: Performed By: #### G FR, CRE #### [address] [address] CO2 [Moles/Vol] 25 mmol/L Normal 22-32 [facility] ([place] Comment on above: Performed By: #### G FR, CRE #### [address] [address] Creatinine [Mass/Vol] 0.97 mg/dL Normal 0.60-1.40 [facility] ([place] Comment on above: Performed By: #### G FR, CRE #### [address] [address] Electrolyte Balance 5.0 mEq/L Normal 4.0-15.0 [facility] ([place] Comment on above: Performed By: #### G FR, CRE #### [address] [address] Glucose [Mass/Vol] 89 mg/dL Normal 82-115 [facility] ([place] Comment on above: Performed By: #### G FR, CRE #### [address] [address] Potassium [Moles/Vol] 4.4 mmol/L Normal 3.5-5.0 [facility] ([place] Comment on above: Performed By: #### Octavio FR, CRE #### [address] [address] Sodium [Moles/Vol] 140 mmol/L Normal 136-145 [facility] ([place] Comment on above: Performed By: #### Octavio FR, CRE #### [address] [address] Urea nitrogen [Mass/Vol] 18.0 mg/dL Normal 8.0-22.0 [facility] ([place] Comment on above: Performed By: #### Octavio APPLE, CRE #### [address] [address] CBCon 05-26-2023 Erythrocyte distribution width (RBC) [Ratio] 14.9 % Normal 11.5-15.5 [facility] ([place] Comment on above: Performed By: #### Octavio APPLE, CRE #### [address] [address] Hematocrit (Bld) [Volume fraction] 43.0 % Normal 40.0-52.0 [facility] ([place] Comment on above: Performed By: #### Octavio APPLE, CRE #### [address] [address] Hgb 14.5 G/dL Normal 13.0-17.5 [facility] ([place] Comment on above: Performed By: #### Octavio FR, CRE #### [address] [address] MCH (RBC) [Entitic mass] 31.0 pg Normal 27.0-33.0 [facility] ([place] Comment on above: Performed By: #### Octavio FR, CRE #### [address] [address] MCHC 33.7 G/dL Normal 32.0-36.0 [facility] ([place] Comment on above: Performed By: #### Octavio FR, CRE #### [address] [address] MCV (RBC) [Entitic vol] 91.8 fL Normal 81.0-100.0 [facility] ([place] Comment on above: Performed By: #### G FR, CRE #### [address] [address] Platelet 197 10 3/mcL Normal 150-450 [facility] ([place] Comment on above: Performed By: #### G FR, CRE #### [address] [address] Platelet mean volume (Bld) [Entitic vol] 8.2 fL Normal 6.4-10.5 [facility] ([place] Comment on above: Performed By: #### Octavio APPLE, CRE #### [address] [address] RBC 4.69 10 6/mcL Normal 4.50-6.00 [facility] ([place] Comment on above: Performed By: #### Octavio APPLE, CRE #### [address] [address] WBC 5.7 10 3/mcL Normal 4.5-10.8 [facility] ([place] Comment on above: Performed By: #### Octavio , CRE #### [address] [address] LABORATORYOrdered By: Brigida Hoskins on 05-26-2023 ABO and Rh group Nom (Bld) Blood group O Rh(D) positive Invalid Interpretation Code AH BB Auto SS Blood group antibody screen Ql Negative ABSC (05/26/23 10:32 AM) Normal AH BB Auto SS LABORATORYOrdered By: SYSTEM SYSTEM on 05-26-2023 Basophils (Bld) [#/Vol] 0.0 103/mcL Normal 0.0 - 0.3 10^3/mcL AH Workflow SS Basophils/100 WBC (Bld) 0.5 % Normal 0.0 - 2.5 % AH Workflow SS Calcium [Mass/Vol] 9.0 mg/dL Normal 8.7 - 10. 4 mg/dL AH ADM SS Chloride [Moles/Vol] 110 mmol/L Normal 98 - 11 0 mEq/L AH ADM SS CO2 [Moles/Vol] 25 mmol/L Normal 22 - 32 mEq/L ADM SS Creatinine [Mass/Vol] 0.97 mg/dL Normal 0.60 - 1.40 mg/dL ADM SS Electrolyte Balance 5.0 mEq/L Normal 4.0 - 15 .0 mEq/L ADM SS Eosinophils (Bld) [#/Vol] 0.1 103/mcL Normal 0.0 - 0.7 10^3/mcL Workflow SS Eosinophils/100 WBC (Bld) 2.5 % Normal 0.0 - 6.0 % Workflow SS Erythrocyte distribution width (RBC) [Ratio] 14.9 % Normal 11.5 - 15.5 % Workflow SS GFR/1.73 sq M.predicted among blacks MDRD (S/P/Bld) [Vol rate/Area] ml/min/1.73sqm Invalid Interpretation Code [employer] [facility] S Comment on above: Interpretive Data: GFR Population mean for , Non- Americans Ages 20-29 = 116 mL/min/1.73 sq.m. Ages 30-39 = 107 mL/min/1.73 sq.m. Ages 40-49 = 99 mL/min/1.73 sq.m. Ages 50-59 = 93 mL/min/1.73 sq.m. Ages 60-69 = 85 mL/min/1.73 sq.m. Ages 70+ = 75 mL/min/1.73 sq.m. Chronic Kidney Disease: Less than 60 mL/min/1.73 square meters End Stage Renal Disease: Less than 15 mL/min/1.73 square meters GFR/1.73 sq M.predicted among non-blacks MDRD (S/P/Bld) [Vol rate/Area] ml/min/1.73sqm Invalid Interpretation Code [employer] [facility] S Comment on above: Interpretive Data: GFR Population mean for , Non- Americans Ages 20-29 = 116 mL/min/1.73 sq.m. Ages 30-39 = 107 mL/min/1.73 sq.m. Ages 40-49 = 99 mL/min/1.73 sq.m. Ages 50-59 = 93 mL/min/1.73 sq.m. Ages 60-69 = 85 mL/min/1.73 sq.m. Ages 70+ = 75 mL/min/1.73 sq.m. Chronic Kidney Disease: Less than 60 mL/min/1.73 square meters End Stage Renal Disease: Less than 15 mL/min/1.73 square meters Glucose [Mass/Vol] 89 mg/dL Normal 82 - 115 mg/dL AH ADM SS Hematocrit (Bld) [Volume fraction] 43.0 % Normal 40.0 - 52.0 % AH Workflow SS Hemoglobin (Bld) [Mass/Vol] 14.5 G/dL Normal 13.0 - 17.5 G/dL AH Workflow SS Lymphocytes (Bld) [#/Vol] 1.1 103/mcL Normal 0.9 - 4.3 10^3/mcL AH Workflow SS Lymphocytes/100 WBC (Bld) 19.7 % Low 20.0 - 40.0 % AH Workflow SS MCH (RBC) [Entitic mass] 31.0 pg Normal 27.0 - 33.0 pg AH Workflow SS MCHC 33.7 G/dL Normal 32.0 - 36.0 G/dL AH Workflow SS MCV (RBC) [Entitic vol] 91.8 fL Normal 81.0 - 100.0 fL AH Workflow SS Monocytes (Bld) [#/Vol] 0.6 103/mcL Normal 0.1 - 1.4 10^3/mcL AH Workflow SS Monocytes/100 WBC (Bld) 10.2 % Normal 2.0 - 13.0 % AH Workflow SS Neutrophils (Bld) [#/Vol] 3.8 103/mcL Normal 2.3 - 8.1 10^3/mcL AH Workflow SS Neutrophils/100 WBC (Bld) 67.1 % Normal 50.0 - 75.0 % AH Workflow SS Platelet mean volume (Bld) [Entitic vol] 8.2 fL Normal 6.4 - 10.5 fL AH Workflow SS Platelets (Bld) [#/Vol] 197 103/mcL Normal 150 - 450 10^3/mcL AH Workflow SS Potassium [Moles/Vol] 4.4 mmol/L Normal 3.5 - 5.0 mEq/L AH ADM SS RBC (Bld) [#/Vol] 4.69 106/mcL Normal 4.50 - 6.0 0 10^6/mcL AH Workflow SS Sodium [Moles/Vol] 140 mmol/L Normal 136 - 145 mEq/L ADM SS Urea nitrogen [Mass/Vol] 18.0 mg/dL Normal 8.0 - 22.0 mg/dL ADM SS Urea nitrogen/Creatinine [Mass ratio] 18.6 ratio Normal 10.0 - 22.0 ratio AH ADM SS WBC (Bld) [#/Vol] 5.7 103/mcL Normal 4.5 - 10.8 10^3/mcL Workflow SS CT ANGIOGRAPHY ABD AORTA + I LIOFEMORALon 05-06-2023 CT ANGIOGRAPHY ABD AORTA + ILIOFEMORAL ORIGINAL EXAM: CT Angiogram of the Abdomen and Pelvis with contrast dated 04/22/2023. INDICATION: Abdominal aortic aneurysm. COMPARISON: None. TECHNIQUE: CT images were obtained from the lung bases to the upper thigh following administration of 100 mL Omnipaque intravenous contrast. Images were reconstructed at a slice thickness of 2.5 and 1.25 mm. MIP, MPR, and 3D rendered images were performed using a separate 3-D workstation. CT Radiation Dose: Integrated Dose-length product (DLP) = 545.89 mGy*cm. CT Dose Reduction Employed: Per department protocol including the following measures where applicable: Automated exposure control, adjustment of the mAs and/or kVp according to patient size and/or exam, and an iterative reconstruction algorithm. FINDINGS: Lower Chest/Abdomen/Pelvis Please note this examination was performed to optimize assessment of the vascular structures and therefore a narrow field of view was utilized limiting visualization and assessment of nonvascular structures. There is a 5 mm pulmonary nodule in the right lung base (S2, 12). The visualized lung bases are otherwise clear. The visualized liver is unremarkable. Scattered calcifications noted within the spleen consistent with prior granulomatous disease. The adrenal glands, pancreas, and gallbladder are normal in CT appearance. The kidneys demonstrate no suspicious mass or evidence of hydronephrosis. The visualized unopacified small and large bowel are normal in caliber. There is no mesenteric or pericolonic fat infiltration appreciated. A normal appendix is present in the right lower quadrant. There are a few scattered colonic diverticuli. The bladder is unremarkable. There is enlargement of the prostate with protrusion into the base of the bladder. There is no lymphadenopathy, significant free fluid, or organized fluid collections appreciated in the abdomen or pelvis. No suspicious osseous lesions are appreciated. Vascular There is an infrarenal abdominal aortic aneurysm measuring 6 cm x 5 cm in maximal axial dimensions (S2, 63). The aneurysm neck measures approximately 3 cm from the origin of the renal arteries with a diameter of 2.8 cm. There is fusiform aneurysm of the right common iliac artery measuring 2.4 cm. There is also fusiform aneurysm of the left common iliac artery measuring 2 cm. Both internal iliac arteries appear severely diseased and occluded or nearly occluded at their origin. The right and left external iliac artery demonstrate diffuse disease with areas of moderate stenosis. There is moderate stenosis of the right common femoral artery. The left SFA is occluded. The right proximal SFA demonstrates near occlusion. The celiac artery is patent. There is standard hepatic arterial supply. The superior mesenteric artery is patent. The inferior mesenteric artery arising from the aneurysm sac appears occluded with reconstitution via collaterals. There is moderate bilateral stenosis at the origin of the renal arteries. IMPRESSION: 1. Fusiform infrarenal abdominal aortic aneurysm measuring 6 cm in diameter with bilateral common iliac artery aneurysms. 2. Additional findings as detailed above. RECOMMENDATIONS: 1. For management of fusiform AAA: >5.5 cm AAA, recommend referral to vascular specialist. References: J Am Prabhjot Radiol 2013; 10(10):789-794; J Vasc Surg. 2018; 67:2-77 2. Guidelines for follow-up and management of pulmonary nodules found on Abdomen CT: <6 mm - No follow up recommend on the basis of the estimated low risk of malignancy. Radiology 2017 http://pubs.rsna.org/d oi/full/10.1148/radiol [email or web address] Interpreted by: Kavon Varela MD Preliminary Report By: Kavon Varela MD Electronically signed By Kavon Varela MD Dictated Date: 05/06/2023 10:28:43 AM Prelim Date: 05/06/2023 10:48:05 AM Sign Date: 05/06/2023 10:48:05 AM Ordering Provider: GRETA ALCARAZ Formerly [facility], [facility] [place] .GFRon 04-22-2023 GFR 96 ml/min/1.73sqm Normal [facility] ([place]) Comment on above: Result Comment: GFR Population mean for , Non- Americans Ages 20-29 = 116 mL/min/1.73 sq.m. Ages 30-39 = 107 mL/min/1.73 sq.m. Ages 40-49 = 99 mL/min/1.73 sq.m. Ages 50-59 = 93 mL/min/1.73 sq.m. Ages 60-69 = 85 mL/min/1.73 sq.m. Ages 70+ = 75 mL/min/1.73 sq.m. Chronic Kidney Disease: Less than 60 mL/min/1.73 square meters End Stage Renal Disease: Less than 15 mL/min/1.73 square meters Performed By: #### Octavio APPLE, CRE #### [address] [address] GFR Non- 79 ml/min/1.73sqm Normal [facility] ([place] Comment on above: Result Comment: GFR Population mean for , Non- Americans Ages 20-29 = 116 mL/min/1.73 sq.m. Ages 30-39 = 107 mL/min/1.73 sq.m. Ages 40-49 = 99 mL/min/1.73 sq.m. Ages 50-59 = 93 mL/min/1.73 sq.m. Ages 60-69 = 85 mL/min/1.73 sq.m. Ages 70+ = 75 mL/min/1.73 sq.m. Chronic Kidney Disease: Less than 60 mL/min/1.73 square meters End Stage Renal Disease: Less than 15 mL/min/1.73 square meters Performed By: #### G , CRE #### [address] [address] CREon 04-22-2023 Creatinine [Mass/Vol] 0.92 mg/dL Normal 0.70-1.30 [facility] ([place] Comment on above: Performed By: #### Octavio APPLE, CRE #### [address] [address] LABORATORYOrdered By: SYSTEM SYSTEM on 04-22-2023 Creatinine [Mass/Vol] 0.92 mg/dL Invalid Interpretation Code 0.70 - 1.30 mg/dL AO ADM SS GFR/1.73 sq M.predicted among blacks MDRD (S/P/Bld) [Vol rate/Area] 96 ml/min/1.73sqm Invalid Interpretation Code AO Chemistry S Comment on above: Interpretive Data: GFR Population mean for , Non- Americans Ages 20-29 = 116 mL/min/1.73 sq.m. Ages 30-39 = 107 mL/min/1.73 sq.m. Ages 40-49 = 99 mL/min/1.73 sq.m. Ages 50-59 = 93 mL/min/1.73 sq.m. Ages 60-69 = 85 mL/min/1.73 sq.m. Ages 70+ = 75 mL/min/1.73 sq.m. Chronic Kidney Disease: Less than 60 mL/min/1.73 square meters End Stage Renal Disease: Less than 15 mL/min/1.73 square meters GFR/1.73 sq M.predicted among non-blacks MDRD (S/P/Bld) [Vol rate/Area] 79 ml/min/1.73sqm Invalid Interpretation Code AO Chemistry S Comment on above: Interpretive Data: GFR Population mean for , Non- Americans Ages 20-29 = 116 mL/min/1.73 sq.m. Ages 30-39 = 107 mL/min/1.73 sq.m. Ages 40-49 = 99 mL/min/1.73 sq.m. Ages 50-59 = 93 mL/min/1.73 sq.m. Ages 60-69 = 85 mL/min/1.73 sq.m. Ages 70+ = 75 mL/min/1.73 sq.m. Chronic Kidney Disease: Less than 60 mL/min/1.73 square meters End Stage Renal Disease: Less than 15 mL/min/1.73 square meters Ankle Brachial Indexon 11-26 Ankle Brachial Index [facility] [address] [place] [address] Ankle Brachial Index 11/26/20 1041 MR#: [id number] Acct: [id number] Name: INDERJIT BOWEN Rep #: [id number] : 1945 75 From: Greta Alcaraz MD Attending Dr: Dr. Greta Alcaraz MD Status: [facility] Ordering Dr: Greta Alcaraz MD Date: 11/26/20 Location: [facility] Sex: M C Admitted: Reason For Study: atherosclerosis Procedure A bilateral lower extremity continuous wave Doppler with analog waveform analysis and ankle brachial indexes. Left Segmental Pressures Left brachial= 137mmHg. Left posterior tibial artery = 91mmHg. Left dorsalis pedis artery = 94mmHg. The left dorsalis pedis waveforms are monophasic. The left posterior tibial artery waveforms are monophasic. Right Segmental Pressures Right brachial= 127mmHg. Right posterior tibial artery = 88mmHg. Right dorsalis pedis artery = 95mmHg. The right dorsalis pedis waveforms are monophasic. The right posterior tibial artery waveforms are monophasic. Indices The right ankle brachial index by the posterior tibial artery is .64. The right ankle brachial index by the dorsalis pedis is .69. The left ankle brachial index by the posterior tibial artery is .66. The left ankle brachial index by the dorsalis pedis is .69. VL/Ankle Brachial Index Interpretation Summary Bilateral moderate occlusive disease at rest with an DAVID 0.69 bilaterally. Monophasic flow noted. _ Ordering Physician: Greta Alcaraz Performed By: MASSIEL [facility] 11/27/2036 Date Greta Alcaraz MD CC: ASIM Soriano; Dr. Greta Alcaraz MD Date Dictated: 11/26/20 1041 Date Transcribed: 11/27/20835 Ear Nose Throat Physician: Signed Normal [facility] CREATININE FINGERSTICKon Creatinine [Mass/Vol] 1.1 mg/dL Normal 0.70-1.30 [facility] Comment on above: Performed By: #### L 9100.0200 #### [facility] [place], [address] EGFR WB > 60.0000 Normal >60 [facility] Comment on above: Performed By: #### L 9100.0200 #### [facility] [address] [place], [address] CTA Abd w/Runoff W/WO Jluis ramirez 11-26-2020 CTA Abd w/Runoff W/WO Contrast [facility] Imaging Services [address] [place] [address] CTA Abd w/Runoff W/WO Contrast MR#: [id number] Acct: [id number] Name: INDERJIT BOWEN Rep #: [id number] : 1945 M 75 From: Richard hammond MD PCP: ASIM Coy Status: REG CLI Study: CTA Abd w/Runoff W/WO Contrast Date of Exam: 0 11/26/20 Exam# [id number] Ordering Dr: Greta Alcaraz MD STUDY: CTA OF THE ABDOMINAL AORTA AND BILATERAL LOWER EXTREMITIES REASON FOR EXAM: Male, 75 years old. Bilateral hip pain and lower extremity pain. History of smoker. RADIATION DOSAGE (If Supplied By Facility): CTDIvol = ( 9.28 ) mGy, DLP = ( 1315.47 ) mGycm TECHNIQUE: Axial CT angiography multi-detector data acquisition was obtained from the dome of the liver to the level of the ankles following intravenous administration of IV 100mL [id number]. Axial images and MIP images were reconstructed from the axial data set. Post-processing of the angiographic images was performed, with multiplanar reformation and 3D reconstruction. Individualized dose optimization techniques were used for this CT. TECHNICAL QUALITY: Good COMPARISON: None. Descriptors of Narrowing: None (0%) Mild (< 50%) Moderate (50-70%) Severe (70-90%) Subtotal/Total Occlusion (90-100%) Non-Evaluable (technically non-diagnostic FINDINGS: Coronary artery calcification. Diffuse fatty infiltration of the liver. Abdominal aorta: Diffuse atherosclerotic plaque formation. There is evidence of aneurysmal dilatation of the distal abdominal aorta with a transverse dimension of 42.7 mm. There is evidence of mural thrombus. Celiac and superior mesenteric arteries: Atherosclerotic plaque formation at the origin of the celiac artery and superior mesenteric artery with mild narrowing. Inferior mesenteric artery: Not visualized. Right renal artery(arteries): Mildly stenotic atherosclerotic plaque at the origin of the right renal artery. Left renal artery(arteries): Nonstenotic calcific plaque at the origin of the left renal artery. Right common iliac artery: Atherosclerotic plaque formation. 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 The aneurysm measures 2.4 cm. Right external iliac artery: Nonobstructive calcific plaques. Right internal iliac artery: No demonstrated narrowing. Left common iliac artery: Aneurysmal dilatation of the left common iliac artery with a transverse dimension of 2.1 cm. There is evidence of mural thrombus. Left external iliac artery: Nonobstructive calcific plaques. Left internal iliac artery: No demonstrated narrowing. RIGHT LOWER EXTREMITY Right common femoral artery: No demonstrated narrowing. Right profundus femoris: No demonstrated narrowing. Right superficial femoral: Multiple stenotic calcific plaques throughout the course of the superficial femoral artery. Right popliteal artery: Nonstenotic calcific plaques at the level of the popliteal artery. Right tibioperoneal trunk: No demonstrated narrowing. Right anterior tibial artery: No demonstrated narrowing. Right posterior tibial artery: The artery is patent although it is of narrow caliber. Right peroneal artery: No demonstrated narrowing. LEFT LOWER EXTREMITY Left common femoral artery: No demonstrated narrowing. Left profundus femoris: No demonstrated narrowing. Left superficial femoral: Multiple stenotic calcific plaques throughout its course. Left popliteal artery: Nonobstructive calcific plaques. Left tibioperoneal trunk: No demonstrated narrowing. Left anterior tibial artery: Multiple stenotic plaque seen throughout its course. Left posterior tibial artery: No demonstrated narrowing. Left peroneal artery: No demonstrated narrowing. 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 Narrow caliber of the right posterior tibial artery. Multiple stenotic plaque seen throughout the course of the left anterior tibial artery. 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 Mural thrombus is seen within. Electronically Signed: Richard Orellana MD at 12:52 EDT , Service support , CC: ASIM Soriano; Dr. Greta Alcaraz MD Ear Nose Throat Physician: Signed Normal [facility] Hemoglobin A1con 08-12-2018 Hemoglobin A1c/Hemoglobin.total mass fraction (Bld) 5.7 % High 4.3-5.6 [facility] Reference Lab Comment on above: Performed By: #### H BA1C #### [facility] Laboratories Routine Lab [address] [address] Hemoglobin A1c/Hemoglobin.total mass fraction (Bld) 117 mg/dL Normal [facility] Comment on above: Performed By: #### H BA1C #### [facility] Laboratories Routine Lab [address] [address] Laboratory - Chemistry and C hemistry - challengeon 02-24-2017 Bilirubin Ql (U) Negative Normal [facility] [employer].; [employer]. Ketones Ql (U) Negative Normal [facility] [employer].; [employer]. pH (U) 5.5 [pH] Normal [employer].; [employer]. Specific gravity (U) [Rel density] 1.020 Normal [employer].; [employer]. Urobilinogen Qn (U) 0.2 mg/dL Normal [employer] [place].; [employer]. Laboratory - Hematology and Cell countson 02-24-2017 Hemoglobin Ql (U) Negative Normal [employer].; [employer]. Laboratory - Microbiology an d Antimicrobial susceptibilityon 02-24-2017 Bacteria identified Cx Nom (U) CULTURE URINE Normal [employer].; [employer]. Laboratory - Specimen inform ationon 02-24-2017 Appearance (U) clear Normal [employer].; [employer]. Color (U) dark Yellow Normal [facility].; [employer] [place]. Laboratory - Urinalysison Glucose Test strip (U) [Mass/Vol] Negative Normal [facility].; [place] [employer] [place]. Leukocyte esterase Test strip Ql (U) Negative Normal [facility].; [place] [email or web address], [employer]. Nitrite Ql (U) Negative Normal [facility] [employer].; [place] [employer] [place]. Protein Ql (U) Negative Normal [facility] [employer].; [employer], [employer]. Laboratory - Chemistry and C hemistry - challengeon 10-05-2016 Albumin [Mass/Vol] 4.1 g/dL Normal 3.4 - 4.8 g/dL [facility].; [email or web address] [email or web address], [employer]. Albumin [Mass/Vol] 1.7 g/dL Abnormal 0.9 - 1.6 [facility].; [place] [employer] [place]. ALP [Catalytic activity/Vol] 49 U/L Normal 38 - 126 U/L [facility].; [email or web address] [email or web address], [employer]. ALT [Catalytic activity/Vol] 19 U/L Normal 10 - 40 U/L [facility].; [email or web address] [email or web address], [employer]. Anion gap [Moles/Vol] 13 mmol/L Normal 10 - 20 mmol/L [facility].; [email or web address] [email or web address], [employer]. AST [Catalytic activity/Vol] 18 U/L Normal 13 - 39 U/L [facility].; [place] [employer] [place]. Bilirubin [Mass/Vol] 0.5 mg/dL Normal 0.0 - 1 .5 mg/dL [facility].; [email or web address] [email or web address], [employer]. Calcium [Mass/Vol] 9.2 mg/dL Normal 8.6 - 10. 2 mg/dL [place] [facility].; [email or web address] [email or web address], [employer]. Chloride [Moles/Vol] 104 mmol/L Normal 98 - 10 7 mmol/L [facility].; [email or web address] [email or web address], [employer]. Cholesterol [Mass/Vol] 206 mg/dL Abnormal 0 - 200 mg/dL [facility].; [place] [email or web address], [facility]. Cholesterol in HDL [Mass or moles/Vol] 38 mg/dL Abnormal 40 - 60 mg/dL [facility]; [facility] Cholesterol in LDL [Mass/Vol] 128 mg/dL Normal 0 - 129 mg/dL [facility]; [facility] Cholesterol.total/Ch olesterol in HDL [Mass ratio] 5.4 {ratio} Abnormal 0.0 - 5.0 [facility]; [facility] CO2 [Moles/Vol] 26.0 mmol/L Normal 21.0 - 31.0 mmol/L [facility]; [facility], [facility] Comprehensive metabolic 2000 panel CMP with eGFR Normal [facility]; [facility], [facility] Creatinine [Mass/Vol] 1.0 mg/dL Normal 0.7 - 1.3 mg/dL [facility]; [facility], [facility]. GFR/1.73 sq M.predicted among blacks MDRD (S/P/Bld) [Vol rate/Area] mL/min/{1.73_m2} Normal 60 - 999 {ML/MINUTE} [facility].; [facility], [facility]. GFR/1.73 sq M.predicted MDRD (S/P/Bld) [Vol rate/Area] mL/min/{1.73_m2} Normal 60 - 999 {ML/MINUTE} [facility].; [facility], [facility]. Globulin (S) [Mass/Vol] 2.4 g/dL Normal 1.5 - 3.8 g/dL [facility].; [facility], [facility]. Glucose [Mass/Vol] 89 mg/dL Normal 74 - 106 mg/dL [facility].; [facility], [facility]. Lipid 1996 panel LIPID PROFILE Normal [facility]; [facility], [facility] Potassium [Moles/Vol] 4.8 mmol/L Normal 3.5 - 5.1 mmol/L [facility]; [facility], [facility] Protein [Mass/Vol] 6.5 g/dL Normal 6.4 - 8.3 g/dL [facility].; [facility], [employer]. Sodium [Moles/Vol] 138 mmol/L Normal 136 - 145 mmol/L [facility] [employer], [employer]. Triglyceride [Mass/Vol] 201 mg/dL Abnormal 0 - 150 mg/dL [facility], [facility].; [employer], [employer]. Urea nitrogen [Mass/Vol] 14 mg/dL Normal 6 - 20 mg/dL [facility] [employer] [facility].; [email or web address], [employer]. Urea nitrogen/Creatinine [Mass ratio] 14 {ratio} Normal 0 - 30 {ratio} [place] [employer] [place].; [employer], [employer]. No Panel Informationon 10-05 AGE 71 {years} Normal [place] [employer] [place].; [employer]. Laboratory - Chemistry and C hemistry - challengeon 07-13-2016 Albumin [Mass/Vol] 4.3 g/dL Normal 3.6 - 5.1 g/dL [place] [employer] [place].; [email or web address], [employer]. Albumin/Globulin [Mass ratio] 1.6 {ratio} Normal 1.0 - 2.5 [place] [employer] [place].; [employer]. ALP [Catalytic activity/Vol] 57 U/L Normal 40 - 115 U/L [place] [employer] [place].; [employer], [employer]. ALT [Catalytic activity/Vol] 22 U/L Normal 9 - 46 U/L [place] [employer] [place].; [employer], [employer]. AST [Catalytic activity/Vol] 18 U/L Normal 10 - 35 U/L [place] [employer] [place].; [employer], [employer]. Bilirubin [Mass/Vol] 0.5 mg/dL Normal 0.2 - 1 .2 mg/dL [place] [employer] [place].; [employer], [employer]. Calcium [Mass/Vol] 9.7 mg/dL Normal 8.6 - 10. 3 mg/dL [place] [email or web address], [employer].; [employer], [employer]. Chloride [Moles/Vol] 105 mmol/L Normal 98 - 11 0 mmol/L [place] [email or web address], [employer].; [employer], [employer]. Cholesterol [Mass/Vol] 314 mg/dL Abnormal 125 - 200 mg/dL [place] [employer] [place].; [facility], [facility]. Cholesterol in HDL [Mass/Vol] 41 mg/dL Normal [facility].; [facility], [facility]. Cholesterol in LDL [Mass/Vol] 240 mg/dL Abnormal [facility].; [facility], [facility]. Cholesterol non HDL [Mass/Vol] 273 mg/dL Abnormal [facility].; [facility], [facility]. Cholesterol.total/Ch olesterol in HDL [Mass ratio] 7.7 {ratio} Abnormal [facility].; [facility], [facility]. CO2 [Moles/Vol] 27 mmol/L Normal 20 - 31 mmol/L [facility].; [facility], [facility]. Creatinine [Mass/Vol] 0.99 mg/dL Normal 0.70 - 1.18 mg/dL [facility].; [facility], [facility]. GFR/1.73 sq M.predicted among blacks MDRD (S/P/Bld) [Vol rate/Area] 88 {ML/MIN/1.73M2} Normal [facility], [facility].; [facility], [facility]. GFR/1.73 sq M.predicted MDRD (S/P/Bld) [Vol rate/Area] 76 {ML/MIN/1.73M2} Normal [facility], [facility].; [facility], [facility]. Globulin (S) [Mass/Vol] 2.6 g/dL Normal 1.9 - 3.7 g/dL [facility], [facility].; [facility], [facility]. Glucose [Mass/Vol] 102 mg/dL Abnormal 65 - 99 mg/dL [facility].; [facility], [facility]. Potassium [Moles/Vol] 4.3 mmol/L Normal 3.5 - 5.3 mmol/L [facility].; [facility], [facility]. Prostate specific Ag [Mass/Vol] 5.8 ng/mL Abnormal [facility], [facility].; [facility], [facility]. Protein [Mass/Vol] 6.9 g/dL Normal 6.1 - 8.1 g/dL [facility].; [facility], [facility]. Sodium [Moles/Vol] 140 mmol/L Normal 135 - 146 mmol/L [facility].; [facility], [facility]. Triglyceride [Mass/Vol] 167 mg/dL Abnormal [facility].; [facility], [facility]. Urea nitrogen [Mass/Vol] 15 mg/dL Normal 7 - 25 mg/dL [facility].; [facility], [facility]. Urea nitrogen/Creatinine [Mass ratio] 15.3 mg/mg Normal 6 - 22 [facility].; [facility], [facility]. Laboratory - Chemistry and C hemistry - challengeon 03-21-2015 Albumin [Mass/Vol] 4.1 g/dL Normal 3.6 - 5.1 g/dL [facility].; [facility]. Albumin/Globulin [Mass ratio] 1.5 {ratio} Normal 1.0 - 2.5 [facility].; [facility], [facility]. ALP [Catalytic activity/Vol] 54 U/L Normal 40 - 115 U/L [facility].; [facility], [facility]. ALT [Catalytic activity/Vol] 24 U/L Normal 9 - 46 U/L [facility].; [place] [facility], [facility]. AST [Catalytic activity/Vol] 17 U/L Normal 10 - 35 U/L [facility].; [place] [facility], [facility]. Bilirubin [Mass/Vol] 0.4 mg/dL Normal 0.2 - 1 .2 mg/dL [facility].; [place] [facility], [facility]. Calcium [Mass/Vol] 9.4 mg/dL Normal 8.6 - 10. 3 mg/dL [facility].; [facility]. Chloride [Moles/Vol] 106 mmol/L Normal 98 - 11 0 mmol/L [facility].; [place] [facility], [facility]. Cholesterol [Mass/Vol] 235 mg/dL Abnormal 125 - 200 mg/dL [facility].; [facility]. Cholesterol in HDL [Mass/Vol] 45 mg/dL Normal [facility].; [facility]. Cholesterol in LDL [Mass/Vol] 160 mg/dL Abnormal [facility].; [facility], [facility]. Cholesterol non HDL [Mass/Vol] 190 mg/dL Abnormal [facility].; [facility], [facility]. Cholesterol.total/Ch olesterol in HDL [Mass ratio] 5.2 {ratio} Abnormal [facility], [facility].; [facility] [employer] CO2 [Moles/Vol] 26 mmol/L Normal 19 - 30 mmol/L [facility].; [facility], [facility]. Creatinine [Mass/Vol] 0.86 mg/dL Normal 0.70 - 1.18 mg/dL [facility].; [facility], [facility]. GFR/1.73 sq M.predicted among blacks MDRD (S/P/Bld) [Vol rate/Area] 101 {ML/MIN/1.73M2} Normal [facility], [facility].; [facility], [facility]. GFR/1.73 sq M.predicted MDRD (S/P/Bld) [Vol rate/Area] 87 {ML/MIN/1.73M2} Normal [facility], [facility].; [place] [email or web address], [facility]. Globulin (S) [Mass/Vol] 2.7 g/dL Normal 1.9 - 3.7 g/dL [facility], [facility].; [place] [facility] Glucose [Mass/Vol] 98 mg/dL Normal 65 - 99 mg/dL [facility], [facility].; [place] [facility] Potassium [Moles/Vol] 4.7 mmol/L Normal 3.5 - 5.3 mmol/L [facility].; [facility], [facility]. Protein [Mass/Vol] 6.8 g/dL Normal 6.1 - 8.1 g/dL [facility], [facility].; [place] [email or web address], [facility]. Sodium [Moles/Vol] 138 mmol/L Normal 135 - 146 mmol/L [facility], [facility].; [place] [email or web address] Triglyceride [Mass/Vol] 151 mg/dL Abnormal [facility], [facility].; [place] [email or web address] Urea nitrogen [Mass/Vol] 19 mg/dL Normal 7 - 25 mg/dL [facility], [facility].; [place] [email or web address] Urea nitrogen/Creatinine [Mass ratio] 21.9 mg/mg Normal 6 - 22 [facility].; [facility] Laboratory - Chemistry and C hemistry - challengeon 12-20-2014 ALT No additional P-5'-P [Catalytic activity/Vol] 24 U/L Normal 10 - 40 U/L [facility]; [facility], [facility]. AST [Catalytic activity/Vol] 19 U/L Normal 13 - 39 U/L [facility]; [facility], [facility] Cholesterol [Mass/Vol] 209 mg/dL Abnormal 0 - 200 mg/dL [facility]; [facility] Cholesterol in HDL [Mass or moles/Vol] 36 mg/dL Abnormal 40 - 60 mg/dL [facility]; [facility] [place] Cholesterol in LDL [Mass/Vol] 144 mg/dL Abnormal 0 - 129 mg/dL [facility] [place]; [facility] Cholesterol.total/Ch olesterol in HDL [Mass ratio] 5.8 {ratio} Abnormal 0.0 - 5.0 [facility] [place]; [facility] Lipid 1996 panel LIPID PROFILE Normal [facility]; [facility] Prostate specific Ag [Mass/Vol] 5.3 ng/mL Abnormal 0.0 - 4.0 ng/mL [facility] [place]; [facility] Triglyceride [Mass/Vol] 147 mg/dL Normal 0 - 150 mg/dL [facility] [place]; [facility], [facility]. Laboratoryon 10-01-2014 Lower GI hemoglobin IA Ql (Stl) Not detected Normal [facility] [place]; [facility] Laboratory - Hematology and Cell countsOrdered By: Clarissa Lyon on 2014 HbA1c (Bld) [Mass fraction] 5.6 % Normal 4.6 - 7.1 % [facility] [place]; [facility] Laboratory - Chemistry and C hemistry - challengeon 09-06-2014 Albumin [Mass/Vol] 4.3 g/dL Normal 3.4 - 4.8 g/dL [facility] [place]; [facility] Albumin [Mass/Vol] 1.5 g/dL Normal 0.9 - 1.6 [facility].; [facility]. ALP [Catalytic activity/Vol] 43 U/L Normal 38 - 126 U/L [facility] [place]; [facility]. ALT [Catalytic activity/Vol] 20 U/L Normal 10 - 40 U/L [facility] [place]; [facility] [place] AST [Catalytic activity/Vol] 17 U/L Normal 13 - 39 U/L [facility] [place]; [facility] [place] Bilirubin [Mass/Vol] 0.4 mg/dL Normal 0.0 - 1 .5 mg/dL [facility] [place]; [facility] [place] Calcium [Mass/Vol] 9.7 mg/dL Normal 8.6 - 10. 2 mg/dL [facility] [place]; [facility] [place] Chloride [Moles/Vol] 102 mmol/L Normal 98 - 10 7 mmol/L [facility] [place]; [facility] [place] Cholesterol [Mass/Vol] 265 mg/dL Abnormal 0 - 200 mg/dL [facility] [place]; [facility] [place] Cholesterol in HDL [Mass or moles/Vol] 45 mg/dL Normal 40 - 60 mg/dL [facility] [place]; [facility]. Cholesterol in LDL [Mass/Vol] 186 mg/dL Abnormal 0 - 129 mg/dL [facility] [place]; [facility] Cholesterol.total/Ch olesterol in HDL [Mass ratio] 5.9 {ratio} Abnormal 0.0 - 5.0 [facility] [place]; [facility] CO2 [Moles/Vol] 30.0 mmol/L Abnormal 13.0 - 29.0 mmol/L [facility] [place]; [facility] Comprehensive metabolic 2000 panel CMP with eGFR Normal [facility]; [facility] Creatinine [Mass/Vol] 0.9 mg/dL Normal 0.7 - 1.3 mg/dL [facility] [place]; [facility] GFR/1.73 sq M.predicted among blacks MDRD (S/P/Bld) [Vol rate/Area] mL/min/{1.73_m2} Normal 60 - 999 {ML/MINUTE} [facility].; [facility], [facility]. GFR/1.73 sq M.predicted MDRD (S/P/Bld) [Vol rate/Area] mL/min/{1.73_m2} Normal 60 - 999 {ML/MINUTE} [facility], [facility].; [facility], [employer]. Globulin (S) [Mass/Vol] 2.8 g/dL Normal 1.5 - 3.8 g/dL [facility], [facility].; [facility], [facility] Glucose [Mass/Vol] 110 mg/dL Abnormal 74 - 106 mg/dL [facility].; [employer], [facility]. Lipid 1996 panel LIPID PROFILE Normal [facility], [facility].; [employer], [employer] Potassium [Moles/Vol] 4.7 mmol/L Normal 3.5 - 5.1 mmol/L [facility].; [employer], [facility]. Prostate specific Ag [Mass/Vol] 7.3 ng/mL Abnormal 0.0 - 4.0 ng/mL [facility].; [employer], [employer]. Protein [Mass/Vol] 7.1 g/dL Normal 6.4 - 8.3 g/dL [facility], [facility].; [employer], [employer]. Sodium [Moles/Vol] 138 mmol/L Normal 136 - 145 mmol/L [facility], [facility].; [employer], [employer]. Triglyceride [Mass/Vol] 170 mg/dL Abnormal 0 - 150 mg/dL [facility].; [employer], [employer]. Urea nitrogen [Mass/Vol] 14 mg/dL Normal 6 - 20 mg/dL [facility], [facility].; [employer], [employer]. Urea nitrogen/Creatinine [Mass ratio] 16 {ratio} Normal 0 - 30 {ratio} [facility] [employer] [facility].; [employer], [employer]. No Panel Informationon 09-06 AGE 68 {years} Normal [facility].; [employer], [employer] Vital Signs Date Time Vital Sign Value Performing Clinician Facility 03-17-2024 11:10-0400 Body height 170.18 cm Ena Soriano PA-C Work Phone: [employer]; [employer] 03-17-2024 11:10-0400 Body mass index (BMI) [Ratio] 28.5 kg/m2 Ena Soriano PA-C Work Phone: [employer]; [employer] 03-17-2024 11:10-0400 Body surface area Derived from formula 1.94 m2 Ena Soriano PA-C Work Phone: [employer]; [employer] 03-17-2024 11:10-0400 Body temperature 96.7 [degF] Ena Soriano PA-C Work Phone: [employer]; [employer]. Comment on above: Method: Tympanic 03-17-2024 11:10-0400 Body weight 82.56 kg Ena Soriano PA-C Work Phone: [employer]; [employer]. 03-17-2024 11:10-0400 Diastolic blood pressure 81 mm[Hg] Ena Soriano PA-C Work Phone: [employer]; [employer]. Comment on above: Patient Position: Sitting; Cuff Location : Left Arm; Cuff Size: Standard 03-17-2024 11:10-0400 Heart rate 59 /min Ena Soriano PA-C Work Phone: [employer]; [employer]. Comment on above: Pattern: Regular 03-17-2024 11:10-0400 Systolic blood pressure 149 mm[Hg] Ena Soriano PA-C Work Phone: [employer]; [employer]. Comment on above: Patient Position: Sitting; Cuff Location : Left Arm; Cuff Size: Standard 06-04-2023 06:55-0500 Body temperature 98.24 [degF] GRETA ALCARAZ MD [facility] 06-04-2023 06:55-0500 Diastolic Blood Pressure Non-Invasive 80 mm[Hg] GRETA ALCARAZ MD [facility] 06-04-2023 06:55-0500 Heart rate 112 /min GRETA ALCARAZ MD [facility] 06-04-2023 06:55-0500 Mean blood pressure 86 mm[Hg] GRETA ALCARAZ MD [facility] 06-04-2023 06:55-0500 Reason For Taking VItal Signs GRETA ALCARAZ MD [facility] 06-04-2023 06:55-0500 Respiratory rate 18 /min GRETA ALCARAZ MD [facility] 06-04-2023 06:55-0500 Systolic Blood Pressure Non-Invasive 93 mm[Hg] GRETA ALCARAZ MD [facility] 06-04-2023 03:28-0500 Blood Pressure Cuff Size GRETA ALCARAZ MD [facility] 06-04-2023 03:28-0500 Blood Pressure Location GRETA ALCARAZ MD [facility] 06-04-2023 03:28-0500 Blood Pressure Method GRETA ALCARAZ MD [facility] 06-04-2023 03:28-0500 Body temperature 98.42 [degF] GRETA ALCARAZ MD [facility] 06-04-2023 03:28-0500 Diastolic Blood Pressure Non-Invasive 68 mm[Hg] GRETA ALCARAZ MD [facility] 06-04-2023 03:28-0500 Heart rate 70 /min GRETA ALCARAZ MD [facility] 06-04-2023 03:28-0500 Reason For Taking VItal Signs GRETA ALCARAZ MD [facility] 06-04-2023 03:28-0500 Respiratory rate 18 /min GRETA ALCARAZ MD [facility] 06-04-2023 03:28-0500 Systolic Blood Pressure Non-Invasive 122 mm[Hg] GRETA ALCARAZ MD [facility] 06-04-2023 02:11-0500 Heart rate 68 /min GRETA ALCARAZ MD [facility] 06-04-2023 00:00-0500 Diastolic Blood Pressure Non-Invasive 61 mm[Hg] GRETA ALCARAZ MD [facility] 06-04-2023 00:00-0500 Reason For Taking VItal Signs GRETA ALCARAZ MD [facility] 06-04-2023 00:00-0500 Systolic Blood Pressure Non-Invasive 99 mm[Hg] GRETA ALCARAZ MD [facility] 06-03-2023 23:48-0500 Body temperature 98.6 [degF] GRETA ALCARAZ MD [facility] 06-03-2023 23:48-0500 Mean blood pressure 73 mm[Hg] GRETA ALCARAZ MD [facility] 06-03-2023 23:48-0500 Respiratory rate 16 /min GRETA ALCARAZ MD [facility] 06-03-2023 21:30-0500 Diastolic blood pressure 50 mm[Hg] GRETA ALCARAZ MD [facility] 06-03-2023 21:30-0500 Mean blood pressure 76 mm[Hg] GRETA ALCARAZ MD [facility] 06-03-2023 21:30-0500 Systolic blood pressure 132 mm[Hg] GRETA ALCARAZ MD [facility] 06-03-2023 19:40-0500 Diastolic blood pressure 48 mm[Hg] GRETA ALCARAZ MD [facility] 06-03-2023 19:40-0500 Mean blood pressure 76 mm[Hg] GRETA ALCARAZ MD [facility] 06-03-2023 19:40-0500 Systolic blood pressure 133 mm[Hg] GRETA ALCARAZ MD [facility] 06-03-2023 18:53-0500 Diastolic blood pressure 51 mm[Hg] GRETA ALCARAZ MD [facility] 06-03-2023 18:53-0500 Mean blood pressure 80 mm[Hg] GRETA ALCARAZ MD [facility] 06-03-2023 18:53-0500 Systolic blood pressure 143 mm[Hg] GRETA ALCARAZ MD [facility] 06-03-2023 12:45-0500 Respiratory Rate - Anes 2 br/min GRETA ALCARAZ MD [facility] 06-03-2023 12:30-0500 Respiratory Rate - Anes 4 br/min GRETA ALCARAZ MD [facility] 06-03-2023 12:25-0500 Respiratory Rate - Anes 15 br/min GRETA ALCARAZ MD [facility] 06-03-2023 09:03-0500 Body height 168.9 cm GRETA ALCARAZ MD [facility] 06-03-2023 09:03-0500 Body weight 81.8 kg GRETA ALCARAZ MD [facility] 06-03-2023 09:03-0500 Heart rate 95 /min GRETA ALCARAZ MD [facility] 05-26-2023 10:16-0500 Blood Pressure Cuff Size GRETA ALCARAZ MD [facility] 05-26-2023 10:16-0500 Blood Pressure Location GRETA ALCARAZ MD [facility] 05-26-2023 10:16-0500 Blood Pressure Method GRETA ALCARAZ MD [facility] 05-26-2023 10:16-0500 Body height 168 cm GRETA ALCARAZ MD [facility] 05-26-2023 10:16-0500 Body temperature 97.88 [degF] GRETA ALCARAZ MD [facility] 05-26-2023 10:16-0500 Body weight 81.9 kg GRETA ALCARAZ MD [facility] 05-26-2023 10:16-0500 Diastolic Blood Pressure Non-Invasive 67 mm[Hg] GRETA ALCARAZ MD [facility] 05-26-2023 10:16-0500 Heart rate 83 /min GRETA ALCARAZ MD [facility] 05-26-2023 10:16-0500 Systolic Blood Pressure Non-Invasive 114 mm[Hg] GRETA ALCARAZ MD [facility] 12-09-2018 13:01-0400 Body height 170.18 cm Ena Soriano PA-C Work Phone: [employer] 12-09-2018 13:01-0400 Body mass index (BMI) [Ratio] 27.57 kg/m2 Ena Soriano PA-C Work Phone: [employer]; [employer] 12-09-2018 13:01-0400 Body surface area Derived from formula 1.92 m2 Ena Soriano PA-C Work Phone: [employer]; [employer]. 12-09-2018 13:01-0400 Body weight 79.83 kg Ena Soriano PA-C Work Phone: [employer].; [employer]. 12-09-2018 13:01-0400 Diastolic blood pressure 65 mm[Hg] Ena Soriano PA-C Work Phone: [employer].; [employer]. Comment on above: Patient Position: Sitting; Cuff Location : Left Arm; Cuff Size: Standard 12-09-2018 13:01-0400 Heart rate 69 /min Ena Soriano PA-C Work Phone: [employer].; [employer]. Comment on above: Pattern: Regular 12-09-2018 13:01-0400 Systolic blood pressure 115 mm[Hg] Ena Soriano PA-C Work Phone: [employer].; [employer]. Comment on above: Patient Position: Sitting; Cuff Location : Left Arm; Cuff Size: Standard 09-08-2018 11:38-0500 Body height 170.18 cm Nithya K Mutersbaugh PREVENTION COORDINATOR [employer] 09-08-2018 11:38-0500 Body mass index (BMI) [Ratio] 28.5 kg/m2 Nithya K Mutersbaugh PREVENTION COORDINATOR [employer], [employer]. 09-08-2018 11:38-0500 Body surface area Derived from formula 1.94 m2 Nithya K Mutersbaugh PREVENTION COORDINATOR [employer] 09-08-2018 11:38-0500 Body weight 82.56 kg Nithya K Mutersbaugh PREVENTION COORDINATOR [employer]. 09-08-2018 11:38-0500 Diastolic blood pressure 71 mm[Hg] Nithya K Mutersbaugh PREVENTION COORDINATOR [employer], [employer].; [employer]. Comment on above: Patient Position: Sitting; Cuff Location : Left Arm; Cuff Size: Standard 09-08-2018 11:38-0500 Heart rate 105 /min Nithya K Mutersbaugh PREVENTION COORDINATOR [employer] Comment on above: Pattern: Regular 09-08-2018 11:38-0500 Systolic blood pressure 104 mm[Hg] Nithyasa Corinne Carter [facility], [employer].; [employer], [employer]. Comment on above: Patient Position: Sitting; Cuff Location : Left Arm; Cuff Size: Standard 02-24-2017 11:24-0400 Body height 170.18 cm Perlitakiki Lema LPN [facility], [employer] 02-24-2017 11:24-0400 Body mass index (BMI) [Ratio] 27.72 kg/m2 [facility], [employer] [email or web address] 02-24-2017 11:24-0400 Body surface area Derived from formula 1.92 m2 Perlita Lema LPN [facility], [employer], [employer]. 02-24-2017 11:24-0400 Body temperature 98 [degF] Perlita Lema PREVENTION COORDINATOR [facility], [employer], [employer]. Comment on above: Method: Tympanic 02-24-2017 11:24-0400 Body weight 80.29 kg Perlita Johangary TAN [facility], [employer] 02-24-2017 11:24-0400 Diastolic blood pressure 80 mm[Hg] Perlita Lema LPN [facility], [employer], [employer]. Comment on above: Patient Position: Sitting; Cuff Location : Left Arm; Cuff Size: Standard 02-24-2017 11:24-0400 Heart rate 77 /min Perlita Lema LPN [facility] [email or web address]. Comment on above: Pattern: Regular 02-24-2017 11:24-0400 Systolic blood pressure 119 mm[Hg] Perlita Lema LPN [facility] [email or web address]. Comment on above: Patient Position: Sitting; Cuff Location : Left Arm; Cuff Size: Standard 10-05-2016 08:56-0400 Body height 170.18 cm Perlita Lema LPN [facility], [email or web address] 10-05-2016 08:56-0400 Body mass index (BMI) [Ratio] 25.06 kg/m2 Perlita Lema LPN [facility], [employer] 10-05-2016 08:56-0400 Body surface area Derived from formula 1.84 m2 Perlita Lema LPN [facility], [employer] 10-05-2016 08:56-0400 Body weight 72.58 kg Perlita Lema LPN [facility], [employer], [employer]. 10-05-2016 08:56-0400 Diastolic blood pressure 86 mm[Hg] Perlita Lema LPN [facility], [employer] Comment on above: Patient Position: Sitting; Cuff Location : Left Arm; Cuff Size: Standard 10-05-2016 08:56-0400 Heart rate 80 /min Perlita Lema LPN [facility], [employer] Comment on above: Pattern: Regular 10-05-2016 08:56-0400 Inhaled oxygen concentration 21 % Perlita Lema LPN [facility], [employer], [employer] Comment on above: Room air 10-05-2016 08:56-0400 SaO2% (BldA) [Mass fraction] 95 % Perlita Lema LPN [facility], [employer] 10-05-2016 08:56-0400 Systolic blood pressure 132 mm[Hg] Perlita Lema LPN [facility], [employer], [employer]. Comment on above: Patient Position: Sitting; Cuff Location : Left Arm; Cuff Size: Standard 04-06-2016 09:54-0400 Body height 170.18 cm Perlita Lema LPN [facility], [employer] 04-06-2016 09:54-0400 Body mass index (BMI) [Ratio] 27.57 kg/m2 Perlita Lema LPN [facility], [employer]. 04-06-2016 09:54-0400 Body surface area Derived from formula 1.92 m2 Perlita Torey TAN [facility] [email or web address], [employer].; [employer]. 04-06-2016 09:54-0400 Body weight 79.83 kg Perlita Wegary TAN [facility], [employer]. 04-06-2016 09:54-0400 Diastolic blood pressure 84 mm[Hg] Perlita Torey [facility] [employer] [facility] [place] [employer]. Comment on above: Patient Position: Sitting; Cuff Location : Left Arm; Cuff Size: Standard 04-06-2016 09:54-0400 Heart rate 69 /min Perlitakiki Lema LPN [facility], [employer].; [employer]. Comment on above: Pattern: Regular 04-06-2016 09:54-0400 Inhaled oxygen concentration 21 % [facility] Lem[facility] LP[facility], [employer].; [employer]. Comment on above: Room air 04-06-2016 09:54-0400 SaO2% (BldA) [Mass fraction] 91 % Perlita Wegary PREVENTION COORDINATOR [facility], [employer].; [employer]. 04-06-2016 09:54-0400 Systolic blood pressure 128 mm[Hg] Perlita Torey TAN [email or web address], [employer].; [employer]. Comment on above: Patient Position: Sitting; Cuff Location : Left Arm; Cuff Size: Standard 03-21-2015 09:19-0400 Body height 170.18 cm Perlitakiki Lema LPN [email or web address], [employer].; [employer]. 03-21-2015 09:19-0400 Body mass index (BMI) [Ratio] 27.45 kg/m2 Perlitakiki Lema LPN [employer], [employer].; [employer]. 03-21-2015 09:19-0400 Body surface area Derived from formula 1.91 m2 Perlita Lema LPN [email or web address], [employer].; [employer]. 03-21-2015 09:19-0400 Body weight 79.49 kg Perlita Pradogary TAN [facility], [employer] 03-21-2015 09:19-0400 Diastolic blood pressure 84 mm[Hg] Perlita Torey [facility], Inc.; [employer] Comment on above: Patient Position: Sitting; Cuff Location : Left Arm; Cuff Size: Standard 03-21-2015 09:19-0400 Heart rate 76 /min Perlita Torey [facility]IEH[facility], Inc.; [employer], [employer] Comment on above: Pattern: Regular 03-21-2015 09:19-0400 Systolic blood pressure 139 mm[Hg] Perlita Pradogary [facility], [facility] Comment on above: Patient Position: Sitting; Cuff Location : Left Arm; Cuff Size: Standard 2014 09:32-0400 Body weight 77.57 kg Clarissa Lyon [facility], [facility] [employer] 2014 09:32-0400 Diastolic blood pressure 80 mm[Hg] Clarissa Lyon [facility], [facility] [employer] Comment on above: Patient Position: Sitting; Cuff Location : Left Arm; Cuff Size: Large 2014 09:32-0400 Heart rate 98 /min Clarissa Lyon [facility], [employer] Comment on above: Pattern: Regular 2014 09:32-0400 Systolic blood pressure 124 mm[Hg] Clarissa Lyon [facility], [facility] Comment on above: Patient Position: Sitting; Cuff Location : Left Arm; Cuff Size: Large 03-16-2014 13:47-0400 Body weight 76.2 kg Ena Soriano PA-C Work Phone: [facility] [facility] [employer] 03-16-2014 13:47-0400 Diastolic blood pressure 88 mm[Hg] Ena Soriano PA-C Work Phone: [facility]. Comment on above: Patient Position: Sitting; Cuff Location : Left Arm; Cuff Size: Standard 03-16-2014 13:47-0400 Heart rate 67 /min Ena Soriano PA-C Work Phone: [facility]. Comment on above: Pattern: Regular 03-16-2014 13:47-0400 Systolic blood pressure 139 mm[Hg] Ena Soriano PA-C Work Phone: [facility].; [facility]. Comment on above: Patient Position: Sitting; Cuff Location : Left Arm; Cuff Size: Standard Encounters Encounter Date Encounter Type Care Provider Facility Start: 09-12-2024 End: 09-12-2024 ambulatory PHY WO ID REFERRING Facility:[facility] Start: 09-05-2024 End: 09-05-2024 ambulatory JO MARIANO MD Facility:[facility] Start: 09-05-2024 End: 09-05-2024 Patient encounter procedure JO MARIANO MD [facility] Start: 05-17-2024 End: 05-17-2024 ambulatory [facility] Start: 03-21-2024 End: 03-21-2024 ambulatory [facility] Start: 03-17-2024 End: 03-17-2024 Office outpatient new 30 minutes Ena Soriano PA-C [facility] Start: 02-21-2024 End: 02-21-2024 ambulatory JO MARIANO [facility] Start: 06-14-2023 End: 06-14-2023 Emergency department patient visit ROSELIA PACHECO [facility] Start: 06-03-2023 End: 06-04-2023 Evaluation and management of inpatient GRETA ALCARAZ MD Facility:A Start: 06-03-2023 End: 06-04-2023 Evaluation and management of inpatient GRETA ALCARAZ MD [facility] Start: 05-26-2023 End: 05-27-2023 ambulatory ENA SORIANO PA Facility:[facility] Start: 05-26-2023 End: 05-26-2023 Admission to establishment GRETA ALCARAZ MD [facility] Start: 04-22-2023 End: 04-23-2023 ambulatory ENA SORIANO PA Facility:B Start: 04-22-2023 End: 04-22-2023 Patient encounter procedure GRETA ALCARAZ MD [facility] Start: 03-30-2023 End: 03-31-2023 ambulatory ENA SORIANO PA Facility:[facility] Start: 12-09-2018 End: 12-08-2018 Historical Summary Ena Soriano PA-C Work Phone: [employer] Start: 12-09-2018 End: 12-09-2018 Office outpatient visit 15 minutes Ena Soriano PA-C Work Phone: [employer] Start: 09-09-2018 End: 09-09-2018 Historical Summary Ena Soriano PA-C Work Phone: [employer] Start: 09-08-2018 End: 09-08-2018 Patient encounter procedure Ena Soriano PA-C Work Phone: [employer] Start: 02-25-2017 End: 02-25-2017 Orders Ena Soriano PA-C Work Phone: [employer] Start: 02-24-2017 End: 02-24-2017 Office outpatient visit 15 minutes Ena Soriano PA-C Work Phone: [employer] Start: 10-05-2016 End: 10-05-2016 Office outpatient visit 25 minutes Ena Soriano PA-C Work Phone: [employer] Start: 07-13-2016 End: 07-25-2016 Orders Enajudd Migueler PA-C Work Phone: [employer]. Start: 04-06-2016 End: 04-06-2016 Patient encounter procedure Ena Soriano PA-C Work Phone: [employer]. Start: 04-25-2015 End: 04-25-2015 Medication Ena Soriano PA-C Work Phone: [employer]. Start: 03-21-2015 End: 03-21-2015 Patient encounter procedure Ena Soriano PA-C Work Phone: [employer]. Start: 01-02-2015 End: 01-02-2015 Orders Ena Soriano PA-C Work Phone: [employer]. Start: 12-26-2014 End: 12-26-2014 Medication Ena Soriano PA-C Work Phone: [employer]. Start: 12-20-2014 End: 12-20-2014 Orders Ena Soriano PA-C Work Phone: [employer]. Start: 2014 End: 2014 Patient encounter procedure Ena Soriano PA-C Work Phone: [employer] Start: 09-19-2014 End: 09-19-2014 Historical Summary Ena Migueler PA-C Work Phone: [employer]. Start: 09-10-2014 End: 09-10-2014 Orders Ena Soriano PA-C Work Phone: [employer]. Start: 03-16-2014 End: 03-18-2014 Patient encounter procedure Ena Soriano PA-C Work Phone: [employer] Procedures Date Procedure Procedure Detail Performing Clinician Start: 05-05-2023 Endovascular repair of abdominal aortic aneurysm JO MARIANO MD Start: 08-11-2018 End: 08-11-2018 Hemoglobin A1c/Hemoglobin.total in Blood Ena Soriano PA-C Work Phone: Comment on above: 5.7 Start: 08-11-2018 End: 08-11-2018 Lab findings surveillance Ena Soriano PA-C Work Phone: Start: 08-11-2018 End: 08-11-2018 Lipid panel Ena Soriano PA-C Work Phone: Comment on above: hdl 37 Start: 02-24-2017 End: 02-25-2017 Radex spine lumbosacral 2/3 views Ena Soriano PA-C Work Phone: Start: 07-13-2016 End: 07-13-2016 Prostate specific antigen measurement Ena Soriano PA-C Work Phone: Comment on above: 5.8 Start: 03-05-2016 End: 03-05-2016 Cardiac catherization Perlita Lema L PN Start: 03-05-2016 End: 03-05-2016 Echocardiography Perlita Lema PREVENTION COORDINATOR Start: 01-02-2015 End: 01-14-2015 Us retroperitoneal real time w/image limited Ena Soriano PA-C Work Phone: Start: 09-02-2014 End: 09-02-2014 Screening for malignant neoplasm of large intestine Ena Soriano PA-C Work Phone: Start: 03-16-2014 End: 03-26-2014 N-invas physiologic std lxtr art compl bi Ena Soriano PA-C Work Phone: Comment on above: Full arterial study with exercise. Pt has pain in legs with walking; resolves with rest. Cold feet. Diminished pulses. Start: 07-05-2008 End: 07-05-2008 Coronary artery bypass graft nEa smith PA-C Work Phone: Comment on above: 3-4 vessels Cardiac valve struct ure (body structure) GRETA ALCARAZ MD Coronary artery bypa ss grafts x 3 GRETA ALCARAZ MD Coronary artery bypa ss grafts x 3 GRETA ALCARAZ MD Comment on above: x4 per Excision of lumbar intervertebral disc GRETA ALCARAZ MD History of lumbar laminectomy GRETA ALCARAZ MD Percutaneous translu rebecca coronary angioplasty GRETA ALCARAZ MD Comment on above: x2 per patient Spinal arthrodesis GRETA PADRON MD Plan of Treatment Date Care Activity Detail Author Start: 03-17-2024 Comprehensive metabo lic panel CMP w/ GFR* (42091) Start: 17-Mar-2024 11:29-04:00 Request Xenon Arc; Xenon Arc Start: 03-17-2024 Blood count complete auto&auto difrntl wbc CBC, PLATELETS & AUT DIFF (F) (51463) Start: 17-Mar-2024 11:29-04:00 Request Xenon Arc; Nutrinsic. Start: 03-17-2024 Cul bact stool aerob ic addl pathogens&id ea Campylobacter stool culture (47798) Start: 17-Mar-2024 11:29-04:00 Request Xenon Arc; Xenon Arc Start: 03-17-2024 Blood occult peroxid ase actv qual feces 1-3 spec BLOOD OCCULT PEROXIDASE ([id number]) Start: 17-Mar-2024 11:28-04:00 Request Xenon Arc; Xenon Arc Start: 03-17-2024 Iaad ia giardia Giardia Antige n ([id number]) Start: 17-Mar-2024 11:28-04:00 Request Xenon Arc; Xen[facility] Arc Start: 03-17-2024 Cul bact stool aerob ic isol salmonella&shigell ESTRELLA CULTURE-STOOL (77180) Start: 17-Mar-2024 11:28-04:00 Request Xenon Arc; [employer]rinsic. Start: 03-17-2024 Lactoferrin fecal qualitative LACTOFERRIN, FECAL, QUALITATIVE (86680) Start: 17-Mar-2024 11:27-04:00 Request [facility] [facility] Start: 03-17-2024 Ova&parasites direct smears concentration & id OVA & PARASITES ([id number]) Start: 17-Mar-2024 11:27-04:00 Request [facility] Immunizations Immunization Date Immunization Notes Care Provider Tanya huongpriscilla 11-18-2012 TD(adult) unspecifie d formulation Ena Soriano PA-C Work Phone: [facility] 11-18-2012 tetanus and diphther ia toxoids, adsorbed, preservative free, for adult use (5 Lf of tetanus toxoid and 2 Lf of diphtheria toxoid) GRETA ALCARAZ MD [facility] Payers Date Payer Category Payer Private Health Insurance [id number] 2023 Medicare [id number] 2023 Private Health Insurance [id number] 1943 Unknown [id number] 2.16.8 [id number] 1943 Unknown [id number] 2.16.8 [id number] 1943 Unknown [id number] 2.16.8 [id number] 1943 Unknown [id number] 2.16.8 [id number] 1943 Unknown [id number] 2.16.8 [id number] 1943 Unknown [id number] 2.16.8 [id number] 1943 Unknown [id number] 2.16.8 [id number] 1943 Unknown [id number] 2.16.8 [id number] 1943 Unknown [id number] 2.16.8 [id number] 1943 Unknown [id number] 2.16.8 [id number] 1943 Unknown [id number] 2.16.8 [id number] Social History Date Type Detail Facility Start: 08-09-2019 End: 05-26-2023 Tobacco smoking status Heavy tobacco smoker (finding) [facility] Sex Assigned At Male [facility] Alcohol Use Alcohol Use [facility] Tobacco Use: Tobacco Use: ; C urrent every day smoker. [facility] [employer] [facility]. Smokes tobacco daily [facility] Work Phone: Sexual Orientation [facility] Start: 05-29-2019 Sex Male (finding) [facility] Functional Status Date Assessment Result Facility 06-04-2023 Functional Status 100 [facility] 06-04-2023 Functional Status Room check performed [facility] 06-04-2023 Functional Status 3am-7am [facility] 06-04-2023 Functional Status [facility] 06-03-2023 Functional Status [facility] 05-26-2023 Functional Status Sensory Deficits None A [facility] Mental Status Date Assessment Result Facility 06-04-2023 Mental Status Orientation Oriented x 4 [facility] 06-04-2023 Mental Status [facility] 06-03-2023 Mental Status [facility] Clinical Notes 04-22-2023 to 03-24-2024 Note Date & Type Note Facility 03-24-2024 Note . MICRO - Microbiology PROCEDURE: Stool Culture [^1 *1] SOURCE: Stool BODY SITE: COLLECTED DATE/TIME: 03/21/2024 10:57 EDT RECEIVED DATE/TIME: 03/21/2024 22:17 EDT START DATE/TIME: 03/21/2024 22:17 EDT FREE TEXT SOURCE: FINAL REPORTS Final Report [] Verified Date/Time/Personnel: 03/24/2024 09:11 EDT Normal stool jessy present. Salmonella: Negative Shigella: Negative Campylobacter: Negative PRELIMINARY REPORTS Preliminary Report [] Verified Date/Time/Personnel: 03/23/2024 11:54 EDT Normal stool jessy present. Negative for stool pathogens at 48 hours. Final report to follow. Interpretive Data ^1: Culture Stool Requests for alternative pathogens including Yersinia, E. coli 0157, C. difficile toxin, Rotavirus, Giardia and parasites require specific requests. Performing Locations *1: This test was performed at: [address], [address] [place] [address] 03-22-2024 Note . MICRO - Microbiology PROCEDURE: Shiga Toxins 1 and 2 [[id number]: [id number] ^1 *1] SOURCE: Stool BODY SITE: COLLECTED DATE/TIME: 03/21/2024 22:17 EDT RECEIVED DATE/TIME: 03/21/2024 22:17 EDT START DATE/TIME: 03/21/2024 22:17 EDT FREE TEXT SOURCE: FINAL REPORTS Final Report [] Verified Date/Time/Personnel: 03/22/2024 14:50 EDT Absence of Shiga toxin 1 Absence of Shiga toxin 2 Order Comments O1: Shiga Toxins 1 and 2 ordered by lab as part of Culture Stool Panel Interpretive Data ^1: Shiga Toxins 1 and 2 Testing performed by immunochromatography. Performing Locations *1: This test was performed at: [address], [address] [place] [address] 06-04-2023 Hospital Discharg e instructions Patient Education 06/04/2023 09:01:26 8- Endovascular Aneurysm Repair 08/2019 (CUSTOM) ABDOMINAL AORTIC ANEURISM SURGERY Discharge Instructions 1.Please call the office , the day after you are discharged to report your condition. Your two-week post-op appointment will be scheduled for you at that time, if it has not already been scheduled. 2.You may need assistance for the first 48 hours after discharge. 3.You will be given a prescription for pain medication when discharged from the hospital. Take the medications as listed on your discharge summary sheet. 4.If danika are present, they should remain in place for 10 days. 5.Discomfort, swelling and bruising are expected at the incision site. 6.There is no limit to routine walking. It is advised not to stand for long periods. 7.It is advised to sit in a reclining position with your legs elevated (avoid sharp angles at the groin or knee). Do not cross legs. 8.Use of some pain medication may cause constipation. Avoid straining to have a bowel movement. If you have problems with constipation, you may use a gentle laxative Milk of Magnesia as directed on the bottle. Increase fluid intake is encouraged (juice, water), 8-10 glasses a day. 9.You may not drive until instructed by the doctor. 10.When showering for the first time, supervision is necessary in case of dizziness. 11.Dressing Care/Incision Care: You may shower with the dressing in place Remove the gauze dressing after 3 days, leaving the steri-strips in place Steri-strips remain in place for 7-10 days or until they fall off on their own You may shower with steri-strips using soap and water 12.Gradually resume your normal diet as tolerated. 13.Your activity should be limited for the first several days after surgery. No lifting over 10 pounds (equal to a full gallon milk jug) for six weeks following your surgery (2 weeks if you had an endograft procedure). WATCH FOR SIGNS OF INFECTION Call your doctor at if you have signs of an infection: A temperature above 100.5 . Redness or swelling. Increased pain. Foul odor or drainage. SEEK IMMEDIATE MEDICAL CARE (call [phone]) IF: If you have a sudden onset of pain in the calf or the leg and/or the foot feels cooler/or discolored. Follow all instructions given to you by your doctor. Follow Up Care 05/18/2023 15:41:27 With:ENA SORIANO Address: [address] [place] [address] [place] [address]- When:5 to 7 days Comments:Call the office to schedule an appointment With:GRETA ALCARAZ MD, [facility], Surgery, Vascular Surgeons Address: [facility] [address] [facility] [address] [place] [address] When:1-2 days Comments:Follow up as scheduled or call the office to schedule an appointment [facility] 06-04-2023 Note Discharge Instructions Thank you for allowing [facility] to assist you with your healthcare needs. The following is important discharge information regarding your hospital visit. Your Care Team ENA SORIANO What to do next Scheduled Follow-Up Appointments Appointment Type When Where Contact InformationCV OV 02/16/2024 01:15 PM EDT [facility] Follow Up Appointments Follow Up with ENA SORIANO When Within 5 to 7 days Why: Call the office to schedule an appointment Where: [address] [place] [address] [place], [place] [id number]- Follow Up with GRETA ALCARAZ MD, [facility], Surgery, Vascular Surgeons When Within 1-2 days Why: Follow up as scheduled or call the office to schedule an appointment Where: [facility] [id number] [place] [address] The Following Activity and Diet Have Been Ordered for You No qualifying data available. No qualifying data available. The Following Equipment Has Been Ordered for You No qualifying data available. The Following Treatments Have Been Ordered for You Discharge Labs No qualifying data available. Discharge Radiology No qualifying data available. Other Therapies No qualifying data available. Post Acute Orders No qualifying data available. Someone Will Contact You Regarding These Home Health Referrals No home referrals have been ordered for you. No one will call you. Allergies NKA Medications Please ask your primary doctor or pharmacist before taking any other medication not listed, including over the counter drugs, herbal medications, vitamins and or supplements as they may interact with your home medications. What How Much When Instructions Last Dose Unchanged aspirin (aspirin 81 mg oral delayed release tablet) 1 tab(s) by mouth Every day Unchanged atorvastatin (atorvastatin 80 mg oral tablet) 1 tab(s) by mouth Once a day Unchanged ezetimibe (Zetia 10 mg oral tablet) 1 tab(s) by mouth Once a day Unchanged lisinopril (lisinopril 20 mg oral tablet) 1 tab(s) by mouth Once a day Unchanged multivitamin (Multivitamin) 1 tab(s) by mouth Every day Unchanged nitroGLYcerin (Nitrostat 0.4 mg sublingual tablet) 1 tab(s) under the tongue Every 5 minutes as needed for Chest pain Please take this list to your next doctor s visit. Bring all medications you take, including over the counter medications, herbals and other supplements with you to your doctor s visit. Patients and families are reminded to discard old lists and to update any records with all medication providers or retail pharmacies. Medication Leaflets atorvastatin (a TOR va sta tin) Atorvaliq, Lipitor What is the most important information I should know about atorvastatin? You should not take atorvastatin if you have liver disease or cirrhosis. Atorvastatin can cause the breakdown of muscle tissue, which can lead to kidney failure. Call your doctor right away if you have unexplained muscle pain, tenderness, or weakness especially if you also have fever, unusual tiredness, or dark urine. What is atorvastatin? Atorvastatin is used together with diet to lower blood levels of 'bad' cholesterol (low-density lipoprotein, or LDL), to increase levels of 'good' cholesterol (high-density lipoprotein, or HDL), and to lower triglycerides (a type of fat in the blood). Atorvastatin is used to lower the risk of stroke, heart attack, or other heart complications in adults with or without type 2 diabetes or heart disease or other risk factors. Atorvastatin is also used alone, or along with diet, or with other cholesterol-lowering medications in adults and children aged 10 years and older with an inherited condition that causes high levels of bad cholesterol. Atorvastatin may also be used for purposes not listed in this medication guide. What should I discuss with my healthcare provider before taking atorvastatin? You should not use atorvastatin if you are allergic to it, or if you have liver failure or cirrhosis. Tell your doctor if you have or have ever had: muscle pain or weakness; diabetes; stroke; a thyroid disorder; a habit of drinking more than 2 alcoholic beverages per day; or kidney disease. Atorvastatin can cause the breakdown of muscle tissue, which can lead to kidney failure. This happens more often in women, in older adults, or people who have kidney disease or poorly controlled hypothyroidism (underactive thyroid). Atorvastatin may harm an unborn baby. Tell your doctor if you are . Ask a doctor if it is safe to breastfeed while using this medicine. How should I take atorvastatin? Follow all directions on your prescription label and read all medication guides or instruction sheets. Your doctor may occasionally change your dose. Use the medicine exactly as directed. Do not change your dose or stop taking any of your medications without your doctor's advice. Atorvastatin is usually taken once per day. Follow your doctor's instructions. You may take atorvastatin tablet with or without food. Take atorvastatin liquid medicine on an empty stomach, at least 1 hour before a meal or 2 hours after a meal. It may take up to 2 weeks before your cholesterol levels improve, and you may need frequent blood tests. Even if you have no symptoms, tests can help your doctor determine if this medicine is effective. Shake the oral suspension (liquid). Measure a dose with the supplied measuring device (not a kitchen spoon). Your treatment may also include diet, exercise, weight control, and blood tests. Store at room temperature away from moisture, heat, and light. Throw away in the trash any unused liquid 60 days after opening the bottle. What happens if I miss a dose? Take the medicine as soon as you can, but skip the missed dose if you are more than 12 hours late for the dose. Do not take two doses at one time. What happens if I overdose? Seek emergency medical attention or call the Poison Help line at . What should I avoid while taking atorvastatin? Avoid eating foods high in fat or cholesterol, or atorvastatin will not be as effective. Drinking alcohol may increase your risk of liver damage. Grapefruit may interact with atorvastatin and cause side effects. Avoid consuming grapefruit products and drinking more than 1.2 liters of grapefruit juice each day. What are the possible side effects of atorvastatin? Get emergency medical help if you have signs of an allergic reaction (hives, difficult breathing, swelling in your face or throat) or a severe skin reaction (fever, sore throat, burning eyes, skin pain, red or purple skin rash with blistering and peeling). Atorvastatin can cause the breakdown of muscle tissue, which can lead to kidney failure. Call your doctor right away if you have unexplained muscle pain, tenderness, or weakness especially if you also have fever, unusual tiredness, or dark urine. Muscle problems may be more likely in older adults and those who have kidney problems, thyroid problems, or take certain other medicines. Also call your doctor at once if you have: muscle weakness in your hips, shoulders, neck, and back; trouble lifting your arms, trouble climbing or standing; liver problems--loss of appetite, stomach pain (upper right side), tiredness, itching, dark urine, jodi-colored stools, jaundice (yellowing of the skin or eyes); kidney problems--swelling, urinating less, feeling tired or short of breath; or high blood sugar--increased thirst, increased urination, dry mouth, fruity breath odor. Common side effects may include: pain in your bones, spine, joints, or muscles; pain and burning when you urinate, painful urination; muscle spasms; upset stomach; trouble sleeping; stuffy nose, runny nose, sore throat; diarrhea, nausea; or pain in your arms or legs. This is not a complete list of side effects and others may occur. Call your doctor for medical advice about side effects. You may report side effects to FDA at 4-668-MOM-6613. What other drugs will affect atorvastatin? Sometimes it is not safe to use certain medicines at the same time. Some drugs can affect your blood levels of other drugs you use, which can increase risk of serious muscle problems or make the medicines less effective. Tell your doctor about all your current medicines. Many drugs can affect atorvastatin, especially: other cholesterol lowering medicine--gemfibrozil, niacin, fenofibrate, fenofibric acid, and others; colchicine; antibiotic or antifungal medicine--rifampin, erythromycin, clarithromycin, itraconazole, ketoconazole, posaconazole, and voriconazole; control pills; medicine to prevent organ transplant rejection; or antiviral medicine to treat hepatitis C or HIV. This list is not complete and many other drugs may affect atorvastatin. This includes prescription and yled-sxo-bqvexse medicines, vitamins, and herbal products. Not all possible drug interactions are listed here. Where can I get more information? Your doctor or pharmacist can provide more information about atorvastatin. Remember, keep this and all other medicines out of the reach of children, never share your medicines with others, and use this medication only for the indication prescribed. Every effort has been made to ensure that the information provided by [employer]. ('[employer]') is accurate, up-to-date, and complete, but no guarantee is made to that effect. Drug information contained herein may be time sensitive. [employer] information has been compiled for use by healthcare practitioners and consumers in the [place] and therefore [employer] does not warrant that uses outside of the [place] are appropriate, unless specifically indicated otherwise. [employer] drug information does not endorse drugs, diagnose patients or recommend therapy. [employer] drug information is an informational resource designed to assist licensed healthcare practitioners in caring for their patients and/or to serve consumers viewing this service as a supplement to, and not a substitute for, the expertise, skill, knowledge and judgment of healthcare practitioners. The absence of a warning for a given drug or drug combination in no way should be construed to indicate that the drug or drug combination is safe, effective or appropriate for any given patient. [employer] does not assume any responsibility for any aspect of healthcare administered with the aid of information [employer] provides. The information contained herein is not intended to cover all possible uses, directions, precautions, warnings, drug interactions, allergic reactions, or adverse effects. If you have questions about the drugs you are taking, check with your doctor, nurse or pharmacist. Copyright 4882-7643 [employer]. Version: .. Revision Date: 12/24/2022. ezetimibe (ez ET i mibe) Sathish What is the most important information I should know about ezetimibe? Call your doctor right away if you have unexplained muscle pain, tenderness, or weakness especially if you also have fever, unusual tiredness, or dark urine. What is ezetimibe? Ezetimibe is used to treat high cholesterol. Ezetimibe is sometimes given together with other cholesterol-lowering medications. Ezetimibe may also be used for purposes not listed in this medication guide. What should I discuss with my healthcare provider before taking ezetimibe? You should not use ezetimibe if you are allergic to it, or if you have: moderate to severe liver disease. Not approved for use by anyone younger than 10 years old. You should not use ezetimibe with a 'statin' cholesterol medicine (Zocor, Lipitor, Crestor, and others) if: you have active liver disease; you are ; or you are a baby. Statin cholesterol medications can cause the breakdown of muscle tissue, which can lead to kidney failure. This happens more often in women, in older adults, or people who have kidney disease or poorly controlled hypothyroidism (underactive thyroid). Tell your doctor if you have ever had: liver disease; kidney disease; or unexplained muscle pain or weakness. Tell your doctor if you are or . Use effective control to prevent while you are using ezetimibe with a statin medicine. Tell your doctor if you plan to become . Do not breastfeed if you take ezetimibe with a statin medicine. How should I take ezetimibe? Follow all directions on your prescription label and read all medication guides or instruction sheets. Use the medicine exactly as directed. Ezetimibe is usually taken once daily at the same time each day. You may take ezetimibe with or without food. Ezetimibe may be taken at the same time with fenofibrate, or with a statin medication such as atorvastatin, lovastatin, simvastatin, pravastatin, or fluvastatin. Your treatment may also include diet, exercise, weight control, and blood tests. You may need frequent medical tests, even if you have no symptoms. Your cholesterol levels may not improve for up to 2 weeks. Store at room temperature away from moisture and heat. What happens if I miss a dose? Take the medicine as soon as you can, but skip the missed dose if it is almost time for your next dose. Do not take two doses at one time. What happens if I overdose? Seek emergency medical attention or call the Poison Help line at . What should I avoid while taking ezetimibe? Avoid eating foods high in fat or cholesterol, or ezetimibe will not be as effective. What are the possible side effects of ezetimibe? Get emergency medical help if you have signs of an allergic reaction: hives; difficult breathing; swelling of your face, lips, tongue, or throat. Ezetimibe can cause the breakdown of muscle tissue, which can lead to kidney failure. Call your doctor right away if you have unexplained muscle pain, tenderness, or weakness especially if you also have fever, unusual tiredness, or dark urine. Side effects may be more likely in older adults. Common side effects may include: diarrhea; cold symptoms such as stuffy nose, sneezing, sore throat; pain in an arm or leg; joint pain; or muscle pain while taking ezetimibe with a statin. This is not a complete list of side effects and others may occur. Call your doctor for medical advice about side effects. You may report side effects to FDA at 2-796-WDS-2525. What other drugs will affect ezetimibe? If you also take other cholesterol medication: Take ezetimibe 2 hours before or 4 hours after taking cholestyramine, colestipol, or colesevelam. Tell your doctor about all your other medicines, especially: cyclosporine; fenofibric acid; gemfibrozil; or a blood thinner--warfarin, Coumadin, Jantoven. This list is not complete. Other drugs may affect ezetimibe, including prescription and pxnr-kpw-lwmjoui medicines, vitamins, and herbal products. Not all possible drug interactions are listed here. Where can I get more information? Your pharmacist can provide more information about ezetimibe. Remember, keep this and all other medicines out of the reach of children, never share your medicines with others, and use this medication only for the indication prescribed. Every effort has been made to ensure that the information provided by [employer]. ('[employer]') is accurate, up-to-date, and complete, but no guarantee is made to that effect. Drug information contained herein may be time sensitive. [employer] information has been compiled for use by healthcare practitioners and consumers in the [place] and therefore [employer] does not warrant that uses outside of the [place] are appropriate, unless specifically indicated otherwise. [employer] drug information does not endorse drugs, diagnose patients or recommend therapy. [employer] drug information is an informational resource designed to assist licensed healthcare practitioners in caring for their patients and/or to serve consumers viewing this service as a supplement to, and not a substitute for, the expertise, skill, knowledge and judgment of healthcare practitioners. The absence of a warning for a given drug or drug combination in no way should be construed to indicate that the drug or drug combination is safe, effective or appropriate for any given patient. [employer] does not assume any responsibility for any aspect of healthcare administered with the aid of information [employer] provides. The information contained herein is not intended to cover all possible uses, directions, precautions, warnings, drug interactions, allergic reactions, or adverse effects. If you have questions about the drugs you are taking, check with your doctor, nurse or pharmacist. Copyright 4098-1422 [employer]. Version: 7.01. Revision Date: 01/07/2021. aspirin (oral) ( pir in) Aspi-Cor, Jo Plus, Durlaza, Ecotrin, Miniprin, Vazalore What is the most important information I should know about aspirin? Aspirin can cause Martha's syndrome, a serious and sometimes fatal condition in children. What is aspirin? Aspirin is a salicylate (mk-JBL-ek-ate) that is used to treat pain, and reduce fever or inflammation. Aspirin is sometimes used to treat or prevent heart attacks, strokes, and chest pain (angina). Aspirin should be used for these conditions only under the supervision of a doctor. Aspirin may also be used for purposes not listed in this medication guide. What should I discuss with my healthcare provider before taking aspirin? Using aspirin in a child or teenager with flu symptoms or chickenpox can cause a serious or fatal condition called Martha's syndrome. You should not use aspirin if you are allergic to it, or if you have: a recent history of stomach or intestinal bleeding; a bleeding disorder such as hemophilia; or if you have ever had an asthma attack or severe allergic reaction after taking aspirin or an NSAID (non-steroidal anti-inflammatory drug). Tell your doctor if you have ever had: asthma or seasonal allergies; stomach ulcers; liver disease; kidney disease; a bleeding or blood clotting disorder; gout; or heart disease, high blood pressure, or congestive heart failure. Taking aspirin during late may cause bleeding in the mother or the baby during delivery. Tell your doctor if you are or plan to become . You should not breastfeed while using this medicine. How should I take aspirin? Use exactly as directed on the label, or as prescribed by your doctor. Always follow directions on the medicine label about giving aspirin to a child. Take with food if aspirin upsets your stomach. You must chew the chewable tablet before you swallow it. Do not crush, chew, break, or open an enteric-coated or delayed/extended-release pill. Swallow it whole. Tell your doctor if you have a planned surgery. Store at room temperature away from moisture and heat. Do not use aspirin if you smell a strong vinegar odor in the aspirin bottle. The medicine may no longer be effective. What happens if I miss a dose? Aspirin is used when needed. If you are on a dosing schedule, skip any missed dose. Do not use two doses at one time. What happens if I overdose? Seek emergency medical attention or call the Poison Help line at . Overdose may cause stomach pain, vomiting, diarrhea, vision or hearing problems, fast or slow breathing, or confusion. What should I avoid while taking aspirin? Avoid alcohol. Heavy drinking can increase your risk of stomach bleeding. Avoid taking ibuprofen if you take aspirin to prevent stroke or heart attack. Ibuprofen can make aspirin less effective in protecting your heart and blood vessels. Ask your doctor how far apart your doses should be. Ask a doctor or pharmacist before using other medicines for pain, fever, swelling, or cold/flu symptoms. They may contain ingredients similar to aspirin (such as magnesium salicylate, ibuprofen, ketoprofen, or naproxen). What are the possible side effects of aspirin? Get emergency medical help if you have signs of an allergic reaction: hives; difficult breathing; swelling of your face, lips, tongue, or throat. Stop using aspirin and call your doctor at once if you have: ringing in your ears, confusion, hallucinations, rapid breathing, seizure (convulsions); severe nausea, vomiting, or stomach pain; bloody or tarry stools, coughing up blood or vomit that looks like coffee grounds; fever lasting longer than 3 days; or swelling, or pain lasting longer than 10 days. Common side effects may include: upset stomach, heartburn; drowsiness; or mild headache. This is not a complete list of side effects and others may occur. Call your doctor for medical advice about side effects. You may report side effects to FDA at 6-309-HYR-9266. What other drugs will affect aspirin? Ask your doctor before using aspirin if you take an antidepressant. Taking certain antidepressants with aspirin may cause you to bruise or bleed easily. Ask a doctor or pharmacist before using aspirin with any other medications, especially: a blood thinner (warfarin, Coumadin, Jantoven), or other medication used to prevent blood clots; or other salicylates such as Nuprin Backache Caplet, Kaopectate, KneeRelief, Pamprin Cramp Formula, Pepto-Bismol, Tricosal, Trilisate, and others. This list is not complete. Other drugs may affect aspirin, including prescription and nbgg-dlz-knnarms medicines, vitamins, and herbal products. Not all possible drug interactions are listed here. Where can I get more information? Your pharmacist can provide more information about aspirin. Remember, keep this and all other medicines out of the reach of children, never share your medicines with others, and use this medication only for the indication prescribed. Every effort has been made to ensure that the information provided by [employer]. ('[employer]') is accurate, up-to-date, and complete, but no guarantee is made to that effect. Drug information contained herein may be time sensitive. [employer] information has been compiled for use by healthcare practitioners and consumers in the [place] and therefore [employer] does not warrant that uses outside of the [place] are appropriate, unless specifically indicated otherwise. [employer] drug information does not endorse drugs, diagnose patients or recommend therapy. [employer] drug information is an informational resource designed to assist licensed healthcare practitioners in caring for their patients and/or to serve consumers viewing this service as a supplement to, and not a substitute for, the expertise, skill, knowledge and judgment of healthcare practitioners. The absence of a warning for a given drug or drug combination in no way should be construed to indicate that the drug or drug combination is safe, effective or appropriate for any given patient. [employer] does not assume any responsibility for any aspect of healthcare administered with the aid of information [employer] provides. The information contained herein is not intended to cover all possible uses, directions, precautions, warnings, drug interactions, allergic reactions, or adverse effects. If you have questions about the drugs you are taking, check with your doctor, nurse or pharmacist. Copyright 3405-5454 [employer]. Version: 18.01. Revision Date: 01/25/2023. Education Materials ABDOMINAL AORTIC ANEURISM SURGERY Discharge Instructions 1. Please call the office , the day after you are discharged to report your condition. Your two-week post-op appointment will be scheduled for you at that time, if it has not already been scheduled. 2. You may need assistance for the first 48 hours after discharge. 3. You will be given a prescription for pain medication when discharged from the hospital. Take the medications as listed on your discharge summary sheet. 4. If danika are present, they should remain in place for 10 days. 5. Discomfort, swelling and bruising are expected at the incision site. 6. There is no limit to routine walking. It is advised not to stand for long periods. 7. It is advised to sit in a reclining position with your legs elevated (avoid sharp angles at the groin or knee). Do not cross legs. 8. Use of some pain medication may cause constipation. Avoid straining to have a bowel movement. If you have problems with constipation, you may use a gentle laxative Milk of Magnesia as directed on the bottle. Increase fluid intake is encouraged (juice, water), 8-10 glasses a day. 9. You may not drive until instructed by the doctor. 10. When showering for the first time, supervision is necessary in case of dizziness. 11. Dressing Care/Incision Care: You may shower with the dressing in place Remove the gauze dressing after 3 days, leaving the steri-strips in place Steri-strips remain in place for 7-10 days or until they fall off on their own You may shower with steri-strips using soap and water 12. Gradually resume your normal diet as tolerated. 13. Your activity should be limited for the first several days after surgery. No lifting over 10 pounds (equal to a full gallon milk jug) for six weeks following your surgery (2 weeks if you had an endograft procedure). WATCH FOR SIGNS OF INFECTION Call your doctor at if you have signs of an infection: A temperature above 100.5 . Redness or swelling. Increased pain. Foul odor or drainage. SEEK IMMEDIATE MEDICAL CARE (call [phone]) IF: If you have a sudden onset of pain in the calf or the leg and/or the foot feels cooler/or discolored. Follow all instructions given to you by your doctor. Additional Information VACCINATE! IT SAVES LIVES! Members of the community who have not yet received the COVID-19 vaccine and would like to receive it can visit one of [facility] vaccine clinics. There are many vaccine clinic locations within the [facility]. For locations and available times, please visit [email or web address].o hio.gov/. It is important to note that some COVID mobile vaccine clinics are held outdoors and may be canceled in rainy or stormy conditions. To learn more about pediatric vaccinations (ages 5-11), we invite you to visit the [facility] webpage. [email or web address]/p [email or web address]-Wsmcfhqrigz-Freq [email or web address]-Lrdtcuukd.html To learn more about the COVID-19 vaccine, we invite you to visit the CDC website for a list of frequently asked questions.https://www.cdc.gov/co ronavirus/2019-ncov/vaccines/faq .html [facility] Patient Portal Access Instructions: Stay connected with your healthcare team and access your personal medical information anytime with the [facility] Patient Portal. Please follow the directions below to create your [facility] account: 1.Access the email account you provided upon registration to the hospital/physician office.2.Look for an invitation email from [facility].3.Open the email and access the invitation link: Accept Invitation to [facility].4.Fill in the required rivera to create your account. To access your account, visit [employer]. Click the blue button labeled Access Patient Portal and then log in with the username and password that you created in the steps above. You will be able to view your test results, lab results, a summary of your visits, upcoming appointments and more. There is also a convenient messaging option where you can send secure messages to your provider. In addition, you will have the ability to download any documents or summaries to your computer and/or send the information securely to a physician. Remember that your healthcare information is confidential, so carefully consider who you will allow to register on the [facility] Patient Portal for access to your information. You can also access the [facility] Patient Portal on the [facility] melina. Simply click on Patient Portal and then log into your account. If you would like to receive a full copy of your medical records, please contact the [facility] Medical Records Department by calling [phone], Wednesday through Wednesday between 8 a.m. and 4:30 p.m. HOW TO SAFELY DISPOSE OF PRESCRIPTION MEDICATIONS Please use one of the following methods to safely dispose of your unused medications. 1.Use a drug disposal kit: the drug disposal pouch allows you to safely discard your old and unused drugs. Ask your nurse to give you one when you are discharged.2.Visit a local take-back location: Many local pharmacies and police departments have programs that collect old and unwanted prescription drugs. Call your local pharmacy or go to http://PrePayMe.[email or web address]/6O8Qc9w to find one close to you.3.Make use of household items: Use cat litter or old coffee grounds to dispose medications if other options are not available. Mix your drugs with these household products, seal them in an airtight container and throw it into the garbage. Call [facility]: [phone] to be sure your drugs can be disposed of in this way. Some medicines may require a different approach.4.Never flush your medications down the toilet. IF YOU HAVE BEEN PRESCRIBED AN OPIOID FOR PAIN If you have been prescribed an opioid (such as hydrocodone, oxycodone or morphine), it is critical to understand the possible side effects and risks of opioid pain medications. Even when taken as directed, opioids can have several side effects including: Tolerance, meaning you might need to take more of a medication for the same pain relief. Nausea, vomiting and/or constipation. Sleepiness, dizziness, dry mouth, confusion, depression or itching. Physical dependence, meaning you have withdrawal symptoms when a medication is stopped, can develop within a few days. KNOW YOUR RESPONSIBILITIES It is important to know exactly how much and how often to take the opioid pain medications you are prescribed. Never take opioids in higher amounts or more often than prescribed. Do not combine opioids with alcohol or other drugs that cause drowsiness, such as benzodiazepines, also known as benzos, including diazepam and alprazolam, muscle relaxants or sleep aids. Never sell or share prescription opioids. This is illegal. Store opioids in a secure place and out of reach of others (including children, family, friends and visitors). The last page of this document has been signed and retained as a CHART COPY. Signatures Patient Education Materials 8- Endovascular Aneurysm Repair 08/2019 (CUSTOM) Medication Leaflets atorvastatin, ezetimibe, aspirin My discharge plan and instructions have been reviewed and explained to me and I,INDERJIT BOWEN understand my current condition and have read and understand these discharge instructions. I have received a written copy of the plan/instructions. If I have questions, I am aware that I should contact my doctor. Patient/Flatbed Owner Operator Signature: Date/Time: Relationship to Patient: Witness Name/Signature: Date/Time: [facility] 06-03-2023 Note ORIGINAL Images acquired, not reported on this accession number. [facility] 06-03-2023 Anesthesiology Consult note Patient: INDERJIT BOWEN Age: 77 years Sex: Male : 1945 Associated Diagnoses: None Author: SUMEET DUNN DO Preoperative Information Greater than 6 hours Anesthesia history Patient's history: negative. Family's history: negative. Review of Systems Ear/Nose/Mouth/Throat: Negative except as documented in history of present illness. Respiratory: Negative except as documented in history of present illness, Smoker. Cardiovascular: Negative except as documented in history of present illness, AAA for endograft, previous CABG and PCI, No CVA. Gastrointestinal: Negative except as documented in history of present illness. Genitourinary: Negative except as documented in history of present illness. Endocrine: Negative except as documented in history of present illness. Musculoskeletal: Negative except as documented in history of present illness. Integumentary: Negative except as documented in history of present illness. Neurologic: Negative except as documented in history of present illness. Health Status Allergies: Allergic Reactions (Selected) NKA, Allergies (1) ActiveReaction NKANone Documented Current medications: (Selected) Inpatient Medications Ordered Heparin 10,000 units/mL: 10,000 unit(s), 1 mL, mL/hr, Miscellaneous, PREOP pharm Kefzol: 2 gram(s), 20 mL, 240 mL/hr, IV Push (INT), PREOP pharm NS 1,000 mL: 20 mL/hr, Intravenous, Stop: 06/03/23 23:59:00 EST phenylephrine 40 mg: Infuse as directed for CVOR, Intravenous, Stop: 06/03/23 23:59:00 EST Prescriptions Prescribed Nitrostat 0.4 mg sublingual tablet: 0.4 mg, 1 tab(s), Sublingual, q5min, PRN: Chest pain, 25 tab(s), 2 Refill(s) Zetia 10 mg oral tablet: 10 mg, 1 tab(s), Oral, qDay, 90 tab(s), 2 Refill(s) atorvastatin 80 mg oral tablet: 1 tab(s), Oral, qDay, 90 tab(s), 3 Refill(s) lisinopril 20 mg oral tablet: 1 tab(s), Oral, qDay, 90 tab(s), 3 Refill(s) Documented Medications Documented Multivitamin: 1 tab(s), Oral, Daily, 0 Refill(s) aspirin 81 mg oral delayed release tablet: 81 mg, 1 tab(s), Oral, Daily, 0 Refill(s), Medications (4) Active Scheduled: (2) ceFAZolin syringe 2 gram(s) 20 mL, IV Push (INT), PREOP pharm heparin 10,000 unit(s) 1 mL, Miscellaneous, PREOP pharm Continuous: (2) NS (0.9% nacl) 1,000 mL 1,000 mL, Intravenous, 20 mL/hr PHENYLephrine 40 mg / 250 mL PMX 40 mg 40 mg 250 mL, Intravenous PRN: (0) Problem list: Medical ATRIOVENTRICULAR BLOCK / SNOMED CT 899210863 / Confirmed HYPERTENSION, BENIGN ESSENTIAL / SNOMED CT 2643542 / Confirmed 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 / SNOMED CT 2126988923 / Confirmed 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 / SNOMED CT 7897435037 / Confirmed DYSLIPIDEMIA / SNOMED CT 7226691645 / Confirmed REFUSED INFLUENZA VACCINE / SNOMED CT 552017383 / Confirmed ST ELEVATION MYOCARDIAL INFARCTION (STEMI) / SNOMED CT 25081381 / Confirmed PAD (PERIPHERAL ARTERIAL DISEASE) / SNOMED CT 5470703083 / Confirmed PAD (PERIPHERAL ARTERIAL DISEASE) / SNOMED CT 4305633087 / Confirmed ARTHRITIS / SNOMED CT 890424532 / Confirmed Current every day smoker / SNOMED CT 6496894305 / Confirmed TOBACCO ABUSE / SNOMED CT 186409578 / Confirmed REFUSED PNEUMOCOCCAL VACCINE / SNOMED CT 4300684021 / Confirmed, Active Problems (19) Abdominal aortic aneurysm ARTHRITIS Atherosclerosis of [place] arteries of extremities with intermittent claudication, bilateral legs ATRIOVENTRICULAR BLOCK 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 Family History: Entire family history is negative. Procedure history: CABG x 3 - Coronary artery bypass grafts x 3 ([id number]). Comments: 05/26/2023 10:25 Rafia Mcgregor RN x4 per [facility] - Percutaneous transluminal coronary angioplasty ([id number]). Comments: 05/26/2023 10:25 Rafia Mcgregor RN x2 per patient Lumbar discectomy ([id number]). Spinal fusion (03494986). History of lumbar laminectomy (1060795857). Cardiac valve (47160084). Social History Social & Psychosocial Habits Alcohol 06/03/2023 Use: Past Type: Beer Frequency: 1-2 times per week Comment: on weekends - 06/19/2020 15:36 - Carlie Barajas CMA; occassionally - 08/14/2020 13:02 - Carlie Barajas CMA Substance Abuse 06/03/2023 Use: Never Tobacco 06/03/2023 Tobacco Use: 10 or more cigarettes (1/ Type: Cigarettes Started at age: 10 Years Home/Environment 06/03/2023 Living situation: Home/Independent Safe place to go: Yes Domestic Concerns None Marital Status of Patient if Patient Independent Adult: Nutrition/Health 06/03/2023 Type of diet: Regular Caffeine intake amount: 1 cup daily Appetite Good Eating Difficulties None . Physical Examination Vital Signs(last 24 hrs) Last Charted Temp Oral36.6 DegC (JUN 03:) Resp Rate 16 br/min (JUN 03:) SBP94 mmHg (JUN 03:) DBP65 mmHg (JUN 03:) General: Alert and oriented. Airway: Normal temporomandibular joint mobility, Normal mouth, Normal throat, Normal neck range of motion, Trachea midline. Mallampati classification: II (soft palate, fauces, uvula visible). Head: Normocephalic. Dentition Evaluation: Intact, Own teeth, Denies loose/chipped teeth. Neck: Supple. Respiratory: Lungs are clear to auscultation. Cardiovascular: Normal rate. Heart Sounds: Normal. Gastrointestinal: Soft. Musculoskeletal Normal range of motion. Integumentary: Intact, Warm, Dry, [place]. Neurologic: Alert, Oriented. Review / Management Results review: Labs (Last four charted values) Plt 200(JUN 03) PT 12.8(JUN 03) INR 1.1(JUN 03) PTT 29.5(JUN 03) . Assessment and Plan [place] Society [employer] Anesthesiologists (ASA) physical status classification: Class IV. Anesthetic Preoperative Plan Premedication: None. Anesthetic technique: General. Induction: intravenously. Maintenance airway: Oral endotracheal tube. Special techniques: Warming device, no Extracorporeal. Special Monitoring: Arterial line. Postoperative pain management: Per surgeon. Risks discussed: nausea, vomiting, headache, sore throat, dental injury, hypotension, allergic reaction, serious complications. Informed consent: signed by patient. Beta Rosemary: Beta Rosemary Taken Within 24 Hrs: Yes. Digitally Signed by SUMEET DUNN DO on 06/03/2023 10:53 AM [facility] 04-22-2023 Note Exam Date Time Procedure Performing Provider Status 04/22/23 2:14 PM VL Carotid US/Dopple r Complete AOH Auth (Verified) [facility] 10-19-2023 Note* Exam Date Time Procedure Performing Provider Status 04/22/23 2:13 PM VL ABIs (ankles only) AOH Auth (Verified) [facility] Evaluation + Plan note Future Appointments Appointment Date:02/16/2024 01:15:00 PM Scheduled Provider: Location:[facility] Appointment Type:CV OV Future Scheduled Tests Laboratory* Lipid Profile 02/17/23 [facility] Evaluation + Plan note Future Appointments Appointment Date:09/12/2024 10:30:00 AM Scheduled Provider: Location:[facility] Appointment Type:CT Angiography Abd Aorta + Iliofemoral Appointment Date:09/12/2024 11:00:00 AM Scheduled Provider: Location:[facility] Appointment Type:VL - Carotid US/Doppler Complete Appointment Date:09/12/2024 01:00:00 PM Scheduled Provider: Location:[facility] Appointment Type:VL AOH - ABIs (ankles only) Appointment Date:02/19/2025 02:15:00 PM Scheduled Provider:KAYLA MONTEIRO Location:[facility] Appointment Type:CV OV Future Scheduled Tests Radiology* CT Angiography Abd Aorta + Iliofemoral 09/12/24 [facility] [facility] course Narrative No data available for this section [facility] Discharge instructions No data available for this section [facility] Progress note No data available for this section [facility] Summary Purpose Family History No Family History Records FoundNo Family History Records Found No data available for this section No data available for this section No data available for this section No data available for this section No Family History Records FoundNo Family History Records FoundNo Family History Records Found No data available for this section No Family History Records FoundNo Family History Records Found Advance Directives No Advanced Directives Records FoundNo Advanced Directives Records FoundNo Advanced Directives Records FoundNo Advanced Directives Records FoundNo Advanced Directives Records FoundNo Advanced Directives Records FoundNo Advanced Directives Records Found Additional Source Comments (unrecognized sect ion and content) No Status Records FoundNo Status Records FoundNo Status Records FoundNo Status Records FoundNo Status Records FoundNo Status Records FoundNo Status Records Found INFORMATION SOURCE (unrecogn ized section and content) DATE CREATED AUTHOR 08/24/2018 [facility] DATE CREATED AUTHOR AUTHOR'S ORGANIZ ATION 11/29/2020 [facility] DATE CREATED AUTHOR AUTHOR'S ORGANIZ ATION 06/13/2023 [facility] DATE CREATED AUTHOR AUTHOR'S ORGANIZ ATION 05/18/2024 [facility] DATE CREATED AUTHOR AUTHOR'S ORGANIZ ATION 05/21/2024 [facility] DATE CREATED AUTHOR AUTHOR'S ORGANIZ ATION 09/14/2024 [facility] DATE CREATED AUTHOR AUTHOR'S ORGANIZ ATION 04/21/2025 [facility] Patient Care team informatio n (unrecognized section and content) Care Team Personnel Name: STAR ROBINS MD Position: P4 Physician - Cardiology Member Role: Electronic Funds Transfer Coordinator Address: Address: [address] [place] [address]- Name: ENA SORIANO Member Role: Primary Care Physician Address: Address: [address] [place] [address] [id number] Care Team Related Persons Name: JESUS BOWEN Address: [address] [id number] [place] Care Team Personnel Name: STAR ROBINS MD Position: P4 Physician - Cardiology Member Role: Electronic Funds Transfer Coordinator Address: Address: [address] [place] [address] Name: ENA SORIANO Member Role: Primary Care Physician Address: Address: [address] [place] [address] [address] [place] [id number] Care Team Related Persons Name: JESUS BOWEN Address: [address] [phone] [place] Care Team Personnel Name: STAR ROBINS MD Position: P4 Physician - Cardiology Member Role: Electronic Funds Transfer Coordinator Address: Address: [address] [place] [address] [place] [address]- Name: ENA SORIANO Member Role: Primary Care Physician Address: Address: [address] [place] [address] DR GAR[address], [id number] Care Team Related Persons Name: JESUS BOWEN Address: [address] [id number] [place] Care Team Personnel Name: STAR ROBINS MD Position: P4 Physician - Cardiology Member Role: Electronic Funds Transfer Coordinator Address: Address: [address] [place] [address] [address] [place] [id number] Name: ENA SORIANO Member Role: Primary Care Physician Address: Address: [address] [place] [address] [place] [address] [place] Care Team Related Persons Name: JESUS BOWEN Address: [address] [phone] Care Team Personnel Name: STAR ROBINS MD Position: P4 Physician - Cardiology Member Role: Electronic Funds Transfer Coordinator Address: [address] [place] [address] [id number] Telecom: Name: ENA SORIANO Member Role: Primary Care Physician Address: [address] [place] [address] [place] [address]- Telecom: Care Team Related Persons Name: JESUS BOWEN FOR RECORDS PERTAINING TO PATIENTS WHO ARE OR HAVE BEEN ENROLLED IN A CHEMICAL DEPENDENCY/SUBSTANCEABUSE PROGRAM, SOME INFORMATION MAY BE OMITTED. This clinical summary was aggregated from multiple sources. Caution should be exercised in using it in the provision of clinical care. This summary normalizes information from multiple sources, and as a consequence, information in this document may materially change the coding, format and clinical context of patient data. In addition, data may be omitted in some cases. CLINICAL DECISIONS SHOULD BE BASED ON THE PRIMARY CLINICAL RECORDS. [facility] [employer] provides no warranty or guarantee of the accuracy or completeness of information in this document.
[2025-05-24 13:08] LABS: PSA, Free 4.30 ng/mL; PSA, Free % 43.3 % (.); PSA, Total Ultrasensitive 9.940 ng/mL (0.000-4.000)
== END | disposition home or self-care (01) ==
PROVIDERS: PCP Physician Assistant; Referring Provider Urology; Visit Provider Urology
DX: R97.20 Elevated prostate specific antigen [PSA] (principal)
CPT/HCPCS: 36415; 84153; 84154